=== PATIENT | male | born 1945 | race Caucasian/White ===

== ENCOUNTER 2023-09-15 12:55 | Inpatient (IN) | payer MEDICARE, SELFPAY ==
[2023-09-15] VITALS (9 sets, daily range): BP systolic 110–177; BP diastolic 68–138; BMI 13.6; BMI 16.5
[2023-09-15 09:00] LABS: % Basophils 0.3 % (0-2); % Eosinophils 0.1 % (0-6); % Immature Granulocytes 0.5 % (0-0.5); % Lymphocytes 5.7 % (20.5-51.1); % Monocytes 5.4 % (1.7-9.3); Absolute Basophils 0.1 10^3/uL (0-0.2); Absolute Immature Granulocytes 0.1 10^3/uL (0-0.05); Absolute Lymphocytes 1.1 10^3/uL (1.2-3.4); Absolute Neutrophils 16.5 10^3/uL (1.4-6.5); Hematocrit 38.7 % (39.0-52.0); Hemoglobin 12.9 g/dL (13.0-18.0); Mean Corp Hgb Conc. 33.3 g/dL (33.0-37.0); Mean Corpuscular Hgb 29.4 pg (27.0-31.0); Mean Corpuscular Volume 88.2 fL (80.0-94.0); Mean Platelet Volume 11.9 fL (7.4-10.4); Nucleated Red Blood Cells % 0 % (-); Platelet Count 196 10^3/uL (130-400); Red Blood Cell Count 4.39 10^6/uL (4.70-6.10); Red Cell Dist. Width 14.3 % (11.5-14.5); White Blood Cell Count 18.8 10^3/uL (4.8-10.8)
[2023-09-15 09:09] LABS: ALT (SGPT) 16 U/L (0-50); AST (SGOT) 24 U/L (17-59); Albumin 3.8 g/dl (3.5-5.0); Alkaline Phosphatase 151 U/L (38-126); Blood Urea Nitrogen 19 mg/dl (9-20); Calcium 9.2 mg/dl (8.4-10.2); Carbon Dioxide 30 mmol/L (22-30); Chloride 102 mmol/L (98-107); Glucose 131 mg/dl (70-99); Potassium 3.7 mmol/L (3.5-5.1); Sodium 142 mmol/L (135-145); Total Bilirubin 2.6 mg/dl (0.2-1.3); eGFR > 60.00
--- NOTE | 2023-09-15 09:11 | ED.GENMED ---
History of Present Illness
<ALEX Magaña - Last Filed: 09/16/23 15:36>
General
Chief Complaint: Breathing Problem
Source: patient and family
Exam Limitations: none
Time Seen by Provider: 09/15/23 08:22
Nursing documentation reviewed up to this point in time: agreed with
Travel History
Have you had any contact with someone who has COVID-19?: No
Do you have any symptoms of coronavirus? Fever > 100 degrees, chills, cough, shortness of breath, sore throat, loss of taste or smell, muscle aches, or headache?: Yes
Symptoms:: trouble breathing
History of Present Illness
History of Present Illness:
Patient is a 77-year-old male with history of lung cancer with lung resection, laryngeal cancer COPD on 3 L nasal cannula presents for worsening shortness of breath. Patient has been short of breath for the past couple days. reports they
recently moved here 4 days ago from [place]. reports they did fly out. Patient has no prior history of DVT PE. She does report that he has been progressively losing weight over the past 1 year.
Past History
<ALEX Magaña - Last Filed: 09/16/23 15:36>
Past History
ED Past Medical History: Cancer, HTN and Valvular disease; Negative CAD
ED Past Surgical History: Cardiac and Other (Lung resection)
Social History
Tobacco: Smoker
Alcohol: None
Personal:
Review of Systems
<ALEX Magaña - Last Filed: 09/16/23 15:36>
Review of Systems
Allergies reviewed?: Yes
All Other Systems: ROS reviewed and negative except as documented in HPI and ROS
Constitutional: Reports weight loss
EENT: Reports no symptoms
Respiratory: Reports trouble breathing
Cardiac: Reports no symptoms
ABD/GI: Reports no symptoms
Musculoskeletal: Reports no symptoms
Skin: Reports no symptoms
Hematologic/Lymphatic: Reports no symptoms
Psychiatric: Reports no symptoms
Phy Exam
<ALEX Magaña - Last Filed: 09/16/23 15:36>
General Physical Exam
General Presentation: no apparent distress
General age: appears stated age
General Skin: warm and dry
General Habitus: elderly
General Mental: alert
General Hydration: dry mucous membranes
Cardiovascular Exam
Cardiovascular Exam: tachycardia
Scores
<ALEX Magaña - Last Filed: 09/16/23 15:36>
Heart Failure Risk
Heart Failure Risk Score: Not Applicable
Course
<ALEX Magaña - Last Filed: 09/16/23 15:36>
Orders/Labs/Results
Orders:
Orders
09/15/23 08:14
EKG [Electrocardiogram (*1)] Stat
Reason for Study: Shortness of Breath
09/15/23 08:15
EKG- Treatment ONCE
09/15/23 08:42
Electrocardiogram (*1) Stat
Reason for Study: Other
Other Reason for Exam: chest pain
CT Chest Pe Study Urgent
Comment:
Reason For Exam: sob
Cardiac Monitoring- Treatment ONCE
EKG- Treatment ONCE
IV Insert/Care/Rem.- Treatment PRN
09/15/23 08:50
Complete Blood Count/With Diff Urgent
Comprehensive Metabolic Panel Urgent
Glycohemoglobin (HgbA1c) Urgent
Magnesium Urgent
Comment: ADD ON
NT-proBNP Urgent
Comment: ADD ON
Troponin I Urgent
09/15/23 09:04
Albuterol Nebs [Ventolin Nebules] 2.5 mg INH R NOW STA
Dexamethasone Sod Phosphate [Decadron] 10 mg IV NOW STA
09/15/23 09:05
0.9% Sodium Chloride 500 ml [Nss] 500 ml IV BOLUS
09/15/23 09:29
Add On- LAB Urgent
Tests Added?: cardiac BNP
09/15/23 09:34
Lactic Acid Urgent
Blood Culture Q30M
СВЕТЛАНА Source: Blood/Venous
Specimen Description:
09/15/23 10:05
Add On- LAB Urgent
Tests Added?: magnesium
09/15/23 10:06
Magnesium Sulfate 1 grams 0.9% Sodium Chloride 100 ml [Nss] 100 ml IV NOW
09/15/23 10:16
CefTRIAXone [Rocephin] 1,000 mg IV NOW STA
09/15/23 10:18
Azithromycin 500 mg/250 ml [Zithromax Infusion] 500 mg in 250 ml IV NOW
09/15/23 10:19
Blood Culture Q30M
СВЕТЛАНА Source: Blood/Venous
Specimen Description:
09/15/23 10:37
COVID-19 Antigen Urgent
Source: Nasal Swab
Influenza A+B Rapid Molecular Urgent
СВЕТЛАНА Source: Nasal Swab
Specimen Description:
09/15/23 10:48
0.9% Sodium Chloride 500 ml [Nss] 500 ml IV BOLUS
09/15/23 10:49
0.9% Sodium Chloride 500 ml [Nss] 500 ml IV BOLUS
09/15/23 11:30
Magnesium Sulfate 1 grams 0.9% Sodium Chloride 100 ml [Nss] 100 ml IV NOW
09/15/23 12:28
Sputum Culture [Respiratory Culture/Gram Stain] Routine
СВЕТЛАНА Source: Sputum
Specimen Description:
Date Specimen was Collected: 09/15/23
Time Specimen was Collected: 12:29
09/15/23 12:37
Admit/Transfer Patient As Directed
Co-Sign Provider:
Level of Care: Inpatient admission
Assign to:: Telemetry
Physician / Group: david cedeño
Diagnosis: sepsis 2/2 LLL pna, chronic copd, hypomag, urinary urgency
Reason for Telemetry: Arrhythmia
Date to Stop Telemetry: 09/18/23
Time to Stop Telemetry: 11:00
Reason for Hospitalization: sepsis 2/2 LLL pna, chronic copd, hypomag, urinary urgency
Expected length of stay greater than two midnights?: Yes
ELOS- Estimated Length of Stay in days: 4
I certify the patient meets the requirements for IP care: Yes
Code Status As Directed
Resuscitation Status: Do not resuscitate
Reached after discussion with pt or family/Healthcare POA: Yes
Based on pt advanced directive or healthcare POA form: Yes
Decision communicated with: Per patient with daughter present at bedside
Respiratory Culture/Gram Stain Urgent
СВЕТЛАНА Source: Sputum
Specimen Description:
Date Specimen was Collected: 09/16/23
Time Specimen was Collected: 00:00
DNR Bracelet Application ONCE
Speech Therapy Eval & Treat Routine
09/15/23 15:27
Lactic Acid Urgent
Troponin I Q6H
09/15/23 16:31
Acetaminophen [Tylenol] 650 mg PO Q4HWA
Ipratropium/Albuterol Sulfate [Duoneb] 3 ml INH R Q4HPRN PRN
09/15/23 16:31
Activity As Directed
Activity Level: As Tolerated
Vital Signs As Directed
Frequency: Per unit guidelines
Incentive Spirometry [Rx Incentive Spirometry] [RESP] Routine
Frequency: q1h while awake
O2 Therapy [RESP] Routine
Nasal Cannula Liter Flow: 3 LPM
Titrate/Wean O2 to maintain O2 sat greater than (%): 91
Special Instructions: Patient on chronic 2 to 3 L nasal cannula
Pulse Ox/spot Check [RESP] Routine
Quantity: 1
Ot Eval And Treat Routine
Pt Eval And Treat Routine
Activity Level: As Tolerated
DX Deep Vein Thrombosis Video Routine
09/15/23 16:43
Troponin I Q6H
09/15/23 18:00
Enoxaparin Sodium [Lovenox] 40 mg SC QPM
MetroNIDAZOLE 500 MG/100 ML [Flagyl 500 mg] 100 ml IV Q8H
09/15/23 20:00
Carvedilol [Coreg] 12.5 mg PO BID
Doxycycline [Vibramycin] 100 mg PO Q12
09/15/23 22:31
Troponin I Q6H
09/16/23 03:28
Complete Blood Count/With Diff IN AM
Comprehensive Metabolic Panel IN AM
09/16/23 08:00
Amlodipine [Norvasc] 2.5 mg PO DAILY
Aspirin Chewable [Low Strength Aspirin] 325 mg PO DAILY
Atorvastatin [Lipitor] 10 mg PO DAILY
09/16/23 12:00
CefTRIAXone [Rocephin] 1,000 mg IV Q24H
09/17/23 06:00
Complete Blood Count/With Diff IN AM
Comprehensive Metabolic Panel IN AM
09/18/23 06:00
Complete Blood Count/With Diff IN AM
Comprehensive Metabolic Panel IN AM
09/18/23 11:00
DC Protocol for Telemetry ONCE
09/19/23 06:00
Complete Blood Count/With Diff IN AM
Comprehensive Metabolic Panel IN AM
Abnormal Lab Results
09/15/23 09/15/23
08:50 09:34
WBC 18.8 H 10^3/uL
(4.8-10.8)
RBC 4.39 L 10^6/uL
(4.70-6.10)
Hgb 12.9 L g/dL
(13.0-18.0)
Hct 38.7 L %
(39.0-52.0)
MPV 11.9 H fL
(7.4-10.4)
Abs Immat Gran (auto) 0.1 H 10^3/uL
(0-0.05)
Absolute Neuts (auto) 16.5 H 10^3/uL
(1.4-6.5)
Absolute Lymphs (auto) 1.1 L 10^3/uL
(1.2-3.4)
Absolute Monos (auto) 1.0 H 10^3/uL
(0.1-0.6)
Neutrophils % 88.0 H %
(42.2-75.2)
Lymphocytes % 5.7 L %
(20.5-51.1)
Glucose 131 H mg/dl
(70-99)
Lactic Acid 3.4 H mmol/L
(0.7-2.0)
Magnesium 1.5 L mg/dl
(1.6-2.3)
Total Bilirubin 2.6 H mg/dl
(0.2-1.3)
Alkaline Phosphatase 151 H U/L
(38-126)
Troponin I 0.050 H* ng/ml
09/15/23 08:50
09/15/23 08:50
Vital Signs
Initial and Last Documented VS:
Initial Vital Signs
Temp Pulse Resp BP Pulse Ox
99.8 F 149 26 177/138 85
09/15/23 08:10 09/15/23 08:10 09/15/23 08:10 09/15/23 08:10 09/15/23 08:10
Last Documented Vital Signs
Temp Pulse Resp BP Pulse Ox
98.0 F 80 14 129/64 97
09/16/23 11:10 09/16/23 13:50 09/16/23 13:50 09/16/23 11:10 09/16/23 13:50
<Sudhakar Aragon, DO - Last Filed: 09/15/23 10:14>
Orders/Labs/Results
Orders:
Orders
09/15/23 08:14
EKG [Electrocardiogram (*1)] Stat
Reason for Study: Shortness of Breath
09/15/23 08:15
EKG- Treatment ONCE
09/15/23 08:42
Electrocardiogram (*1) Stat
Reason for Study: Other
Other Reason for Exam: chest pain
CT Chest Pe Study Urgent
Comment:
Reason For Exam: sob
Cardiac Monitoring- Treatment ONCE
EKG- Treatment ONCE
IV Insert/Care/Rem.- Treatment PRN
09/15/23 08:50
Complete Blood Count/With Diff Urgent
Comprehensive Metabolic Panel Urgent
Glycohemoglobin (HgbA1c) Urgent
Magnesium Urgent
Comment: ADD ON
NT-proBNP Urgent
Comment: ADD ON
Troponin I Urgent
09/15/23 09:04
Albuterol Nebs [Ventolin Nebules] 2.5 mg INH R NOW STA
Dexamethasone Sod Phosphate [Decadron] 10 mg IV NOW STA
09/15/23 09:05
0.9% Sodium Chloride 500 ml [Nss] 500 ml IV BOLUS
09/15/23 09:29
Add On- LAB Urgent
Tests Added?: cardiac BNP
09/15/23 09:34
Lactic Acid Urgent
Blood Culture Q30M
СВЕТЛАНА Source: Blood/Venous
Specimen Description:
09/15/23 10:05
Add On- LAB Urgent
Tests Added?: magnesium
09/15/23 10:06
Magnesium Sulfate 1 grams 0.9% Sodium Chloride 100 ml [Nss] 100 ml IV NOW
09/15/23 10:16
CefTRIAXone [Rocephin] 1,000 mg IV NOW STA
09/15/23 10:18
Azithromycin 500 mg/250 ml [Zithromax Infusion] 500 mg in 250 ml IV NOW
09/15/23 10:19
Blood Culture Q30M
СВЕТЛАНА Source: Blood/Venous
Specimen Description:
09/15/23 10:37
COVID-19 Antigen Urgent
Source: Nasal Swab
Influenza A+B Rapid Molecular Urgent
СВЕТЛАНА Source: Nasal Swab
Specimen Description:
09/15/23 10:48
0.9% Sodium Chloride 500 ml [Nss] 500 ml IV BOLUS
09/15/23 10:49
0.9% Sodium Chloride 500 ml [Nss] 500 ml IV BOLUS
09/15/23 11:30
Magnesium Sulfate 1 grams 0.9% Sodium Chloride 100 ml [Nss] 100 ml IV NOW
09/15/23 12:28
Sputum Culture [Respiratory Culture/Gram Stain] Routine
СВЕТЛАНА Source: Sputum
Specimen Description:
Date Specimen was Collected: 09/15/23
Time Specimen was Collected: 12:29
09/15/23 12:37
Admit/Transfer Patient As Directed
Co-Sign Provider:
Level of Care: Inpatient admission
Assign to:: Telemetry
Physician / Group: david cedeño
Diagnosis: sepsis 2/2 LLL pna, chronic copd, hypomag, urinary urgency
Reason for Telemetry: Arrhythmia
Date to Stop Telemetry: 09/18/23
Time to Stop Telemetry: 11:00
Reason for Hospitalization: sepsis 2/2 LLL pna, chronic copd, hypomag, urinary urgency
Expected length of stay greater than two midnights?: Yes
ELOS- Estimated Length of Stay in days: 4
I certify the patient meets the requirements for IP care: Yes
Code Status As Directed
Resuscitation Status: Do not resuscitate
Reached after discussion with pt or family/Healthcare POA: Yes
Based on pt advanced directive or healthcare POA form: Yes
Decision communicated with: Per patient with daughter present at bedside
Respiratory Culture/Gram Stain Urgent
СВЕТЛАНА Source: Sputum
Specimen Description:
Date Specimen was Collected: 09/16/23
Time Specimen was Collected: 00:00
DNR Bracelet Application ONCE
Speech Therapy Eval & Treat Routine
09/15/23 15:27
Lactic Acid Urgent
Troponin I Q6H
09/15/23 16:31
Acetaminophen [Tylenol] 650 mg PO Q4HWA
Ipratropium/Albuterol Sulfate [Duoneb] 3 ml INH R Q4HPRN PRN
09/15/23 16:31
Activity As Directed
Activity Level: As Tolerated
Vital Signs As Directed
Frequency: Per unit guidelines
Incentive Spirometry [Rx Incentive Spirometry] [RESP] Routine
Frequency: q1h while awake
O2 Therapy [RESP] Routine
Nasal Cannula Liter Flow: 3 LPM
Titrate/Wean O2 to maintain O2 sat greater than (%): 91
Special Instructions: Patient on chronic 2 to 3 L nasal cannula
Pulse Ox/spot Check [RESP] Routine
Quantity: 1
Ot Eval And Treat Routine
Pt Eval And Treat Routine
Activity Level: As Tolerated
DX Deep Vein Thrombosis Video Routine
09/15/23 16:43
Troponin I Q6H
09/15/23 18:00
Enoxaparin Sodium [Lovenox] 40 mg SC QPM
MetroNIDAZOLE 500 MG/100 ML [Flagyl 500 mg] 100 ml IV Q8H
09/15/23 20:00
Carvedilol [Coreg] 12.5 mg PO BID
Doxycycline [Vibramycin] 100 mg PO Q12
09/15/23 22:31
Troponin I Q6H
09/16/23 03:28
Complete Blood Count/With Diff IN AM
Comprehensive Metabolic Panel IN AM
09/16/23 08:00
Amlodipine [Norvasc] 2.5 mg PO DAILY
Aspirin Chewable [Low Strength Aspirin] 325 mg PO DAILY
Atorvastatin [Lipitor] 10 mg PO DAILY
09/16/23 12:00
CefTRIAXone [Rocephin] 1,000 mg IV Q24H
09/17/23 06:00
Complete Blood Count/With Diff IN AM
Comprehensive Metabolic Panel IN AM
09/18/23 06:00
Complete Blood Count/With Diff IN AM
Comprehensive Metabolic Panel IN AM
09/18/23 11:00
DC Protocol for Telemetry ONCE
09/19/23 06:00
Complete Blood Count/With Diff IN AM
Comprehensive Metabolic Panel IN AM
Abnormal Lab Results
09/15/23 09/15/23
08:50 09:34
WBC 18.8 H 10^3/uL
(4.8-10.8)
RBC 4.39 L 10^6/uL
(4.70-6.10)
Hgb 12.9 L g/dL
(13.0-18.0)
Hct 38.7 L %
(39.0-52.0)
MPV 11.9 H fL
(7.4-10.4)
Abs Immat Gran (auto) 0.1 H 10^3/uL
(0-0.05)
Absolute Neuts (auto) 16.5 H 10^3/uL
(1.4-6.5)
Absolute Lymphs (auto) 1.1 L 10^3/uL
(1.2-3.4)
Absolute Monos (auto) 1.0 H 10^3/uL
(0.1-0.6)
Neutrophils % 88.0 H %
(42.2-75.2)
Lymphocytes % 5.7 L %
(20.5-51.1)
Glucose 131 H mg/dl
(70-99)
Lactic Acid 3.4 H mmol/L
(0.7-2.0)
Magnesium 1.5 L mg/dl
(1.6-2.3)
Total Bilirubin 2.6 H mg/dl
(0.2-1.3)
Alkaline Phosphatase 151 H U/L
(38-126)
Troponin I 0.050 H* ng/ml
09/15/23 08:50
09/15/23 08:50
Vital Signs
Initial and Last Documented VS:
Initial Vital Signs
Temp Pulse Resp BP Pulse Ox
99.8 F 149 26 177/138 85
09/15/23 08:10 09/15/23 08:10 09/15/23 08:10 09/15/23 08:10 09/15/23 08:10
Last Documented Vital Signs
Temp Pulse Resp BP Pulse Ox
98.0 F 80 14 129/64 97
09/16/23 11:10 09/16/23 13:50 09/16/23 13:50 09/16/23 11:10 09/16/23 13:50
<ALEX Magaña - Last Filed: 09/16/23 15:36>
MDM/Problems Addressed
Differential Diagnosis Includes:
not limited to: Influenza COVID pneumonia PE arrhythmia
MDM/Problems Addressed:
Patient is a 77-year-old male with past medical history of lung cancer COPD laryngeal cancer recently moved from [place] 4 ago presents with shortness of breath. Pt recently moved from [place]. Patient very tachycardic on arrival . Pt hypoxic on
initial arrival despite his chronic O2 . Patient evaluated by ED physician. patient with decreased breath sounds. Given treatment here in the ER feeling better. CAT scan negative for PE but does show extensive left lower pneumonia, neg covid . IV
antibx ordered
Chronic conditions affecting care:
COPD emphysema, chronic O2,
<ALEX Magaña - Last Filed: 01/21/24 15:36>
*Radiology
Radiology exam reviewed: radiology read reviewed (CT shows extensive left lower lobe pneumonia no PE, severe erythematous changes)
*Pulse Oximetry
Patient hypoxic: yes
*Computer Support Analyst Interpretation
Rate: tachycardiac
Interpretation: abnormal
Heart Rate: 122
Rhythm: sinus tachycardia
*Critical Care Note
Total Time (30-74mins, 75-104mins- exclusive of procedures): Not Applicable
ED Attending Note
<ALEX Magaña - Last Filed: 09/16/23 15:36>
-
Portions of this chart may have been created with voice recognition software.� Occasional wrong word or��sound alike� substitutions may have occurred due to the inherent limitations of voice recognition software.
<Sudhakar Aragon DO - Last Filed: 09/15/23 10:14>
ED Attending Note
Patient seen and examined by attending physician: Yes
I performed the substantive portion of visit, reviewed & personally made and approve the management plan that is documented in note by myself or BETO.: Yes
ED Attending Note:
I have seen and evaluated the patient with a [id number] encounter. I have spoken to the advance practicer provider and involved in the medical history, the physical exam, medical decision making.
Evaluation and management service: agree unless noted differently below.
Results interpretation: agree unless noted differently below.
Focused HPI: 77-year-old male presenting with shortness of breath and palpitations. Patient found be tachycardic. Initial concern for SVT.
Physical exam: Weak, frail, cachectic, decreased breath sounds in the left. Tachycardic
Medical Decision Making: Initial concern for SVT. After breathing treatment, patient feeling somewhat more comfortable. Patient still tachycardic but it is more consistent with sinus tachycardia. Patient found to have prolonged QTc. He is
malnourished. Will give dose of IV magnesium and check magnesium levels. CT PE performed showing no evidence of PE but there is extensive pneumonia. Will start IV antibiotics and admit
Discharge Plan
Departure
Patient Disposition: Admit
Date of Disposition: 09/15/23
Time of Disposition: 10:51
Admit to: Med/Surg
Admit to doctor: hospitalist
Presentation/result/management discussed w/ accepting MD/DO: Hospitalist
Patient with high blood pressure during this ER visit?: Yes
Condition: Fair
Covid-19: Not Applicable
Discharge Problem:
Pneumonia, Acute dyspnea, Sepsis
Interventions
Interventions:
*Risk Screen - Suicide Last Done: 09/15/23 12:01
*General Assessment Last Done: 09/15/23 08:10
*Neglect/Abuse Screening Last Done: 09/15/23 12:01
ED- Fall Risk Assessment Last Done: 09/15/23 12:01
*ED COVID-19 Vaccine History Last Done: 09/15/23 08:10
*Nursing Disposition Last Done: 09/15/23 16:31
ED- Cardiac Assessment Last Done: 09/15/23 11:08
ED- Pulmonary Assessment Last Done: 09/15/23 11:08
Discharge Date and Time
Discharge Date/Time: 09/15/23 16:32
[2023-09-15 09:57] LABS: Lactic Acid 3.4 mmol/L (0.7-2.0)
[2023-09-15] MEDS: VENTOLIN NEBULES 2.5 MG INH (10:09)
[2023-09-15] MEDS: NSS 500 IV ×2 (10:09→11:31)
[2023-09-15] MEDS: DECADRON 10 MG IV (10:10)
[2023-09-15 10:29] LABS: Magnesium 1.5 mg/dl (1.6-2.3)
[2023-09-15 10:40] LABS: NT-proBNP 3980 pg/ml
[2023-09-15 11:14] LABS: COVID-19 Antigen Negative (Negative)
[2023-09-15] MEDS: ZITHROMAX INFUSION 250 IV (11:30)
[2023-09-15] MEDS: ROCEPHIN 1000 MG IV (11:30)
[2023-09-15] MEDS: MAGNESIUM SULFATE 102 GRAMS IV (11:50)
--- NOTE | 2023-09-15 12:17 | HPS.HSE ---
Family Physician
<ALEX Roe - Last Filed: 09/15/23 12:53>
-
Family Physician: NOT KNOW UNKNOWN - PT DOES
Chief Complaint
<ALEX Roe - Last Filed: 09/15/23 12:53>
-
sob cough
History of Present Illness
77-year-old male from [facility] who moved here 5 days ago after flying on a plane. He reports over the past 4 days he has had shortness of breath with yellow productive cough and urinary urgency. He has history of COPD is on 2 to 3 L nasal
cannula he also had prior lung cancer with resection left upper lobectomy in 2010. He was noted to be tachycardic with left lower lobe pneumonia on CT of his chest. He denies headache, sore throat, chest pain, palpitations, abdominal pain, nausea
vomiting, diarrhea, sick contacts. Patient is past medical history of left upper lobe lung cancer 2010 with lobectomy, prostate cancer with radiation and seed therapy, COPD on chronic 2 to 3 L, former smoker 60 years, HTN, HLD, aortic valve
replacement 2006
Medical History
<ALEX Roe - Last Filed: 09/15/23 12:53>
Past Medical History
Past Medical History: Reports Other (left upper lobe lung cancer 2010 with lobectomy, prostate cancer with radiation and seed therapy, COPD on chronic 2 to 3 L, former smoker 60 years, HTN, HLD, aortic valve replacement 2006)
Past Surgical History: Reports Other ( aortic valve replacement 2006, prostate seed therapy, multiple skin cancers removed)
Social History
Tobacco: Former Smoker (60-year 1 pack a day)
Alcohol: None
Drug: None
Personal:
Living: With Family ()
Employment: Retired
Family History
Family History: Early CAD (Mother IA age 68, father unknown)
Allergies / Home Medications
Allergies reflects when Allergies were last updated in [employer].
Home Medications with original date entered in [employer]
Allergy/Medication List:
Allergies
Allergy/AdvReac Type Severity Reaction Status Date / Time
No Known Allergies Allergy Verified 09/15/23 08:14
Home Medications
amlodipine 2.5 mg tablet 2.5 mg PO DAILY 02/21/11
aspirin 81 mg chewable tablet 325 mg PO DAILY 02/21/11
simvastatin 20 mg tablet 20 mg PO DAILY 02/21/11
carvedilol 12.5 mg tablet 12.5 mg PO BID 11/07/13
amoxicillin 875 mg-potassium clavulanate 125 mg tablet 1 tab PO Q12 #10 tabs 11/08/13
amoxicillin 875 mg-potassium clavulanate 125 mg tablet 1 tab PO Q12 #14 tabs 01/20/14
Review of Systems
<ALEX Roe - Last Filed: 09/15/23 12:53>
-
History Source: Patient and Family (Daughter at bedside)
A 12 point ROS was completed and negative except as noted: Yes
Constitutional: Denies Fever or Chills
EENT: Denies Tearing or Runny Nose
Respiratory: Reports Cough (Productive yellow) and Trouble Breathing
Cardiac: Denies Chest Pain, Diaphoresis or Palpitations
Abdomen/GI: Denies Abdominal Pain, Nausea, Vomiting, Diarrhea, Constipated, Bloody Stools or Black Stools
: Reports Incontinence and Urgency; Denies Dysuria, Frequency, Flank Pain or Difficulty Voiding
Musculoskeletal: Denies Joint Pain or Edema
Skin: Denies Itching or Rash
Neurological: Denies Dizzy, Headache or Weakness
Endocrine: Reports No Symptoms
Hematologic/Lymphatic: Reports No Symptoms
Psych: Reports Calm
Physical Exam
<ALEX Roe - Last Filed: 09/15/23 12:53>
Vital Signs
Vital Signs
Temp Pulse Resp BP Pulse Ox
99.8 F 121 30 126/70 97
09/15/23 08:10 09/15/23 12:01 09/15/23 12:01 09/15/23 12:01 09/15/23 12:01
Physical Exam
General: Comfortable and Conversant; No Pain, Fever or Chills
HEENT: NormoCephalic, Anicteric, PERRLA, [place] Conjunctivae, No Ptosis and Oxygen (3 L nasal cannula)
Respiratory: Rhonchi (Left lower lobe, right CTA)
Cardiac: S1/S2 and Tachycardia (Sinus with PACs); No Murmur, Rub, Gallop or Peripheral Edema
Breast: Deferred by me
GI: Soft, Non Tender, Non Distended, Normal Bowel Sounds and No Hepatosplenomegaly
Rectal: Deferred by Provider
Genito-urinary: Deferred by me
Musculoskeletal: Clubbing, No Cyanosis and No Edema
Skin: Warm and Dry; No Rash
Neuro: AO x 3, No Motor Deficits, Nonfocal/grossly intact and Cranial Nerves Intact; No Slurred Speech, Facial Droop or Tremors
Psych: Calm
Laboratory Results
Suhaillt;ALEX Roe - Last Filed: 09/15/23 12:53>
-
09/15/23 08:50
09/15/23 08:50
Laboratory Results
Lactic Acid 3.4 mmol/L (0.7-2.0) H 09/15/23 09:34
Total Bilirubin 2.6 mg/dl (0.2-1.3) H 09/15/23 08:50
AST 24 U/L (17-59) 09/15/23 08:50
ALT 16 U/L (0-50) 09/15/23 08:50
Alkaline Phosphatase 151 U/L (38-126) H 09/15/23 08:50
Troponin I 0.050 ng/ml H* 09/15/23 08:50
Data Reviewed
<ALEX Roe - Last Filed: 09/15/23 12:53>
-
Diagnostic Radiology: Report Reviewed by me
Lab Data: Labs Reviewed by me
Impression/Plan
<ALEX Roe - Last Filed: 09/15/23 12:53>
-
Impression/Plan:
Admit to telemetry
#Sepsis 2/2 left lower lobe PNA
18.8 with left shift, 99.8, HR 121, 126/70, 97% 3 LNC
COVID/Flu-negative
-Blood cultures x 2, sputum culture, lactic acid 3.4 will follow
-Follow CBC, CMP
-IV vancomycin IV Zosyn given in Er will change to Doxycycline, Flagyl and Rocephin
-IV Decadron given in ER will hold further dose
-prn duoneb
-incentive spirometry
-PT/OT/case management consult
CT PE study extensive left lower lobe PNA no PE, severe emphysematous changes
#Urinary frequency concern for UTI
History of prostate cancer status post radiation, see therapy years ago per patient
-Follow urinalysis, urine culture
#Lung cancer s/p lung resection left upper lobectomy 2010
#Polyp to vocal cord
#WT loss likely 2/2 to severe copd
ct pe study neg
recommend outpt follow up study
#COPD on 2-3 LNC chronic
#Former smoker 60 years 1 pack a day
-Continue O2 support
#Hypomagnesemia
Mag 1.5, magnesium replacement given
#Non -IA troponin elevation in setting of sepsis
Troponin 0.050 will follow
EKG sinus tach with PACs, HR 122, QTc 601 MS
#Prolonged QTc
QTc 601 MS
-Hold prolonging QTc agents monitor QTc level
#HTN�benign
-126/70
-Continue amlodipine, carvedilol
#HLD
-Continue simvastatin 20 mg daily
#Aortic valve replacement 2006
-Continue aspirin 325 mg daily
DVT prophylaxis
Subcu Lovenox
DNR per patient with daughter present at bedside
<Monik Hernandez MD - Last Filed: 09/15/23 16:28>
-
Seen earlier. Patient's daughter was at bedside
I saw and examined the patient.
The VULCANIZING MACHINE OPERATOR or PA's note was reviewed and I agree with the note.
Comment:
Cachectic
CVS: S1-S2 normal
Chest: Decreased breath sounds bilaterally
Abdomen: Soft, NT / Bowel sounds present
Extremities: No edema, normal pulses
SPECIAL EDUCATION PROFESSIONAL: Non focal exam
# Left lower lobe pneumonia with leukocytosis
Admit
Blood cultures and sputum cultures
Doxycycline Flagyl and ceftriaxone
Speech evaluation rule out aspiration-especially since patient has had radiation to the throat.
Incentive spirometry
CT PE study with extensive left lower lobe pneumonia no PE.
Follow leukocytosis
# Lactic acidosis-continue IV fluids and follow
# Severe emphysema on albuterol and fluticasone and Spiriva inhalers as outpatient
Chronic respiratory failure on 2 to 3 L of oxygen at home
# Mildly elevated troponin-likely secondary to respiratory distress-follow
routine echo
# Urinary frequency
Check urine analysis and culture
# History of prostate cancer with radiation in the past
# History of SCC lung with left upper lobectomy in 2000
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
He cannot recall the details, but states he had laryngeal cancer and received 28 courses of radiation therapy per Dr. Sidhu in September of 2012.
# 45 pound weight loss-patient needs further workup as outpatient for this
# Hypertension-on Coreg
# Hypomagnesemia-replace
# Prolonged QTc-replace magnesium and follow on telemetry
# Hyperlipidemia-on simvastatin
# At least patient has moderate protein calorie malnutrition
Nutrition consultation
# History of noncritical coronary disease.
# History of aortic valve replacement in 2006-bioprosthetic aortic valve
# History of lumbar disc surgery
# Nephrolithiasis
# DVT prophylaxis-Lovenox
# DNR status per discussion with patient and daughter at bedside
time over 75 min
Impression/Plan:
Admit to telemetry
#Sepsis 2/2 left lower lobe PNA
18.8 with left shift, 99.8, HR 121, 126/70, 97% 3 LNC
COVID/Flu-negative
-Blood cultures x 2, sputum culture, lactic acid 3.4 will follow
-Follow CBC, CMP
-IV vancomycin IV Zosyn given in Er will change to Doxycycline, Flagyl and Rocephin
-IV Decadron given in ER will hold further dose
-prn duoneb
-incentive spirometry
-PT/OT/case management consult
CT PE study extensive left lower lobe PNA no PE, severe emphysematous changes
#Urinary frequency concern for UTI
History of prostate cancer status post radiation, see therapy years ago per patient
-Follow urinalysis, urine culture
#Lung cancer s/p lung resection left upper lobectomy 2010
#Polyp to vocal cord
#WT loss likely 2/2 to severe copd
ct pe study neg
recommend outpt follow up study
#COPD on 2-3 LNC chronic
#Former smoker 60 years 1 pack a day
-Continue O2 support
#Hypomagnesemia
Mag 1.5, magnesium replacement given
#Non -IA troponin elevation in setting of sepsis
Troponin 0.050 will follow
EKG sinus tach with PACs, HR 122, QTc 601 MS
#Prolonged QTc
QTc 601 MS
-Hold prolonging QTc agents monitor QTc level
#HTN�benign
-126/70
-Continue amlodipine, carvedilol
#HLD
-Continue simvastatin 20 mg daily
#Aortic valve replacement 2006
-Continue aspirin 325 mg daily
DVT prophylaxis
Subcu Lovenox
DNR per patient with daughter present at bedside
--- NOTE | 2023-09-15 14:55 | PHANOTE ---
09/15/2023, [place], spoke to pt. and pt.'s family to obtain pt.'s medication history; pt. states to be taking Spiriva Respimat 1.25 mcg inhaler 1 puff Daily; however, after calling pt.'s pharmacy in [place] ([facility] on [address] in
[place], [place]), they state that the medication has been filled but not picked up. Did not confirm as this medication is not in pt.'s pharmacy fill data or [facility] records.
[2023-09-15 15:51] LABS: Lactic Acid 3.7 mmol/L (0.7-2.0)
--- NOTE | 2023-09-15 16:05 | CM ---
Met patient and dgtr in Er room. Patient and moved back to [place] from [place] 4 days ago as his health is declining and wanted to be near family. HE and live in one level home, no steps to enter.
He has home oxygen. The house has a folding shower seat.
He has not had VNA or SNF in past.
Prescriptions filled at [facility].
He has not established a local PCP yet.
PLAN: home with family support.
--- NOTE | 2023-09-15 16:55 | PTOTSP ---
SPEECH THERAPY SWALLOW EVALUATION:
Clinical signs of oropharyngeal dysphagia, likely chronic in patient with multiple predisposing (prior laryngeal cancer with radiation, COPD, lung cancer, 'choking' episodes, recurrent pneumonia) and precipitating (current pneumonia, sepsis, UTI)
dysphagia risk factors. Patient currently with pneumonia. Recommend Videofluoroscopic Swallowing Study to further assess swallow physiology. Recommend CAUTIOUS oral diet of IDDSI Level 4 Puree and thin liquids via SINGLE sips only until results of
VSE. Strict aspiration precautions in place including: upright positioning, small single sips only, small bites of food, only provide p.o. if SpO2>90% and RR<30, medications crushed or whole (if small) in puree; Should patient exhibit any increased
signs of aspiration, or a decline in respiratory status, make NPO until VSE (LOW threshold to make NPO). Speech therapy to follow, assess diet tolerance and modify as appropriate, monitor CXR and WBC, provide continued education regarding aspiration
risks and precautions, and provide further recommendations following VSE procedure results.
RECOMMEND:
1) Videofluoroscopic Swallowing Study to be completed Sunday09/17/23
2) CAUTIOUS oral diet of IDDSI Level 4 Puree and thin liquids via SINGLE sips only until results of VSE
3) Strict aspiration precautions in place including: upright positioning, small single sips only, small bites of food, only provide p.o. if SpO2>90% and RR<30, medications crushed or whole (if small) in puree
4) Should patient exhibit any increased signs of aspiration, or a decline in respiratory status, make NPO until VSE (LOW threshold to make NPO)
5) Speech therapy to follow, assess diet tolerance and modify as appropriate, monitor CXR and WBC, provide continued education regarding aspiration risks and precautions, and provide further recommendations following VSE procedure results
[2023-09-15 17:39] LABS: Troponin I 0.071 ng/ml
[2023-09-15] MEDS: FLAGYL 500 MG 100 IV (18:00)
[2023-09-15] MEDS: NSS 1000 IV (18:02)
[2023-09-15] MEDS: LOVENOX 30 MG SC (18:02)
[2023-09-15] MEDS: TYLENOL 650 MG PO ×2 (18:02→20:34)
[2023-09-15] MEDS: ADVAIR HFA 115/21 MCG INHALER INH (18:17)
[2023-09-15] MEDS: ADVAIR HFA 115/21 MCG INHALER 1 PUFF INH (20:22)
[2023-09-15] MEDS: VIBRAMYCIN 100 MG PO (20:34)
[2023-09-15] MEDS: COREG 12.5 MG PO (20:34)
[2023-09-15 22:43] LABS: Lactic Acid 1.8 mmol/L (0.7-2.0)
[2023-09-15 22:56] LABS: Troponin I 0.066 ng/ml
[2023-09-15] MEDS: TYLENOL PO (23:56)
[2023-09-16] VITALS (8 sets, daily range): BP systolic 101–144; BP diastolic 64–78; PULSE 89–90; O2SAT 95; BMI 16.6
[2023-09-16] MEDS: FLAGYL 500 MG 100 IV (01:29)
[2023-09-16 03:35] LABS: % Immature Granulocytes 0.7 % (0-0.5); % Lymphocytes 1.8 % (20.5-51.1); % Monocytes 5.3 % (1.7-9.3); % Neutrophils 92.2 % (42.2-75.2); Absolute Immature Granulocytes 0.1 10^3/uL (0-0.05); Absolute Lymphocytes 0.2 10^3/uL (1.2-3.4); Absolute Monocytes 0.6 10^3/uL (0.1-0.6); Absolute Neutrophils 9.8 10^3/uL (1.4-6.5); Hematocrit 27.2 % (39.0-52.0); Mean Corp Hgb Conc. 33.5 g/dL (33.0-37.0); Mean Corpuscular Volume 89.8 fL (80.0-94.0); Mean Platelet Volume 11.1 fL (7.4-10.4); Nucleated Red Blood Cells % 0 % (-); Platelet Count 128 10^3/uL (130-400); Red Blood Cell Count 3.03 10^6/uL (4.70-6.10); Red Cell Dist. Width 14.2 % (11.5-14.5); White Blood Cell Count 10.6 10^3/uL (4.8-10.8)
[2023-09-16 03:48] LABS: Hemoglobin 9.1 g/dL (13.0-18.0)
[2023-09-16 04:06] LABS: ALT (SGPT) 11 U/L (0-50); AST (SGOT) 16 U/L (17-59); Albumin 2.5 g/dl (3.5-5.0); Alkaline Phosphatase 104 U/L (38-126); Blood Urea Nitrogen 23 mg/dl (9-20); Calcium 8.1 mg/dl (8.4-10.2); Carbon Dioxide 31 mmol/L (22-30); Chloride 108 mmol/L (98-107); Estimated Creatinine Clearance 71 ml/min; Glucose 144 mg/dl (70-99); Potassium 3.1 mmol/L (3.5-5.1); Sodium 140 mmol/L (135-145); Total Bilirubin 1.2 mg/dl (0.2-1.3); Troponin I 0.056 ng/ml; eGFR > 60.00
[2023-09-16] MEDS: NSS 1000 IV (04:19)
[2023-09-16] MEDS: TYLENOL 650 MG PO ×5 (04:19→21:05)
[2023-09-16] MEDS: ADVAIR HFA 115/21 MCG INHALER 1 PUFF INH ×2 (07:30→19:41)
[2023-09-16] MEDS: SPIRIVA RESPIMAT 2.5 MCG 2 PUFF INH (07:30)
[2023-09-16 09:14] LABS: Glycohemoglobin (HgbA1c) 5.4 % (4.0-5.6)
[2023-09-16] MEDS: VIBRAMYCIN 100 MG PO ×2 (09:45→21:05)
[2023-09-16] MEDS: ASPIRIN 325 MG PO (09:45)
[2023-09-16] MEDS: FLAGYL 500 MG PO ×3 (09:45→21:06)
[2023-09-16] MEDS: LIPITOR 10 MG PO (09:46)
[2023-09-16] MEDS: COREG PO (09:46)
[2023-09-16] MEDS: KCL 270 MEQ IV (10:29)
--- NOTE | 2023-09-16 10:38 | W.PN.HOSP.TC ---
Today's Communication/Plan
-
I V AB
Aspiration precautions
Repeat EKG in the morning to check QTc
Letter supplement
Change aspirin to 81 mg daily
Iron studies
Assessment / Plan
Assessment / Plan
CVS: S1-S2 normal
Chest: Decreased breath sounds bilaterally, rales
Abdomen: Soft, NT / Bowel sounds present
Extremities: No edema, normal pulses
MANUFACTURING ADVISOR: Non focal exam
# Left lower lobe pneumonia with leukocytosis
CAP vs Aspiration related.
Blood cultures and sputum cultures
Doxycycline ,Flagyl and ceftriaxone
Speech evaluation -Modified diet
Incentive spirometry
CT PE study with extensive left lower lobe pneumonia no PE.�
Follow leukocytosis
# Lactic acidosis-Resolved
# Hypokalemia-replace non-NH troponin elevation
#
#Drop in AB /anemia due to IVF
# Severe emphysema on albuterol and fluticasone and Spiriva inhalers as outpatient
�Chronic respiratory failure on 2 to 3 L of oxygen at home
# Mildly elevated troponin-likely secondary to respiratory distress-follow
routine echo
# Urinary frequency
Check urine analysis and culture
#Mild Thrombocytopenia-Watch
# History of prostate cancer with radiation in the past
# History of SCC lung� with left upper lobectomy in 2000
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
He cannot recall the details, but states he had laryngeal cancer and received 28 courses of radiation therapy per Dr. Sidhu in September of 2012.
# 45 pound weight loss-patient needs further workup as outpatient for this
# Hypertension-on Coreg
# Hypomagnesemia-replace
# Prolonged QTc-replace magnesium and follow on telemetry
# Hyperlipidemia-on simvastatin
# At least patient has moderate protein calorie malnutrition
Nutrition consultation
Ensure
# History of noncritical coronary disease.
# History of aortic valve replacement in 2006-bioprosthetic aortic valve
# History of lumbar disc surgery
# Nephrolithiasis
# Hypoalbuminemia
# DVT prophylaxis-Lovenox
# DNR status per discussion with patient and daughter at bedside
D/W RN
Anticipated Discharge: 24 - 48 hours
Subjective/Interval History
-
Date of Service: September 16, 2023
Objective Data
-
Labs:
Laboratory Results
09/16/23
03:28
WBC 10.6
Hgb 9.1 L D
Hct 27.2 L
Plt Count 128 L D
Sodium 140
Potassium 3.1 L
Chloride 108 H
Carbon Dioxide 31 H
BUN 23 H
Creatinine 0.6 L
Glucose 144 H
Calcium 8.1 L
Total Bilirubin 1.2 D
AST 16 L
ALT 11
Alkaline Phosphatase 104
Vital Signs:
Vital Signs
Temp Pulse Resp BP Pulse Ox
97.9 F 79 16 101/65 97
09/16/23 07:20 09/16/23 09:47 09/16/23 07:33 09/16/23 09:47 09/16/23 07:33
I&O
09/15/23 09/16/23 09/17/23
06:59 06:59 06:59
Intake Total 1780 / 1780
Output Total 185 / 185
Balance 1595 / 1595
[2023-09-16 10:57] LABS: Iron 20 ug/dl (49-181); Magnesium 1.7 mg/dl (1.6-2.3)
[2023-09-16 11:04] LABS: Percent Saturation 11 % (20-50); Total Iron Binding Capacity 173 ug/dl (261-462)
--- NOTE | 2023-09-16 11:14 | W.PN.UPDATE ---
Update Note
Progress Note Update
Pt and family insistent that I change Aspirin back to 325
Changed.
Rationale behind using 81 mg was explained to them.
They still wanted to be changed till he speaks to his gamma operator.
Family aware about anemia and may be an on going problem in future.
Also aware about anemia and the need for OP work up.
[2023-09-16] MEDS: ROCEPHIN 1000 MG IV (11:56)
[2023-09-16] MEDS: PROTONIX 40 MG PO (11:56)
[2023-09-16] MEDS: STERILE WATER FOR INJECTION 10 ML IV (11:56)
[2023-09-16 12:04] LABS: Vitamin B12 354 pg/ml (239-931)
[2023-09-16 12:39] LABS: Urine Albumin Trace (Neg - Trace); Urine Bilirubin 1+ (Negative); Urine Character Clear (Clear); Urine Color Yellow; Urine Glucose Negative (Negative); Urine Ketone Negative (Negative); Urine Leukocyte Trace (Negative); Urine Nitrite Negative (Negative); Urine Occult Blood Negative (Negative); Urine Urobilinogen 3+ (Neg - 1+)
[2023-09-16 13:38] LABS: Urine Bacteria Few (Negative); Urine Red Blood Cell 0-2 /HPF (0-2); Urine White Cell 0-2 /HPF (0-5)
[2023-09-16] MEDS: VENTOLIN NEBULES 2.5 MG INH ×3 (13:45→19:41)
[2023-09-16] MEDS: LOVENOX 30 MG SC (17:29)
[2023-09-16] MEDS: COREG 12.5 MG PO (21:06)
--- NOTE | 2023-09-16 21:14 | PTCARENOTE ---
Pt agitated and loudly yelling at this nurse after was questioned about the follow up advance directive question ' Why are you asking me, why do you need it, so I can't come to this hospital?'. Pt was reassured and reminded that this was just a
follow up question and it had nothing to do with his treatment, and that it was the hospital's protocol to have a copy of it. Also, after HS meds were administered to him pt got very agitated again and started yelling again 'what's going on, you are
giving me meds that I never heard before, this is crazy'. Pt was gently reminded that I made him aware prior to giving him his medications what he was about to get and he was on agreement. Pt continued to yell loudly at this nurse stating 'all of a
sudden my heart medications were changed and no one told me, I want to talk to the contract admin, although they don't know what they are doing here'. Pt was asked if he wanted to discuss this with the associate application developer VISUAL MERCHANDISING ASSISTANT and he refused, a print out list of
his medications were given to the patient and reminded that he is scheduled for an Echo in the morning and his contract admin will be made aware of his concerns. Pt agreeable with the plan of care.
[2023-09-16] MEDS: TYLENOL PO (23:50)
[2023-09-17 03:22] VITALS: BP 138/69
[2023-09-17] MEDS: TYLENOL PO ×2 (03:36→09:58)
[2023-09-17 05:25] LABS: % Basophils 0.1 % (0-2); % Immature Granulocytes 0.4 % (0-0.5); % Monocytes 3.4 % (1.7-9.3); % Neutrophils 94.1 % (42.2-75.2); Absolute Immature Granulocytes 0.1 10^3/uL (0-0.05); Absolute Lymphocytes 0.3 10^3/uL (1.2-3.4); Absolute Monocytes 0.5 10^3/uL (0.1-0.6); Absolute Neutrophils 12.7 10^3/uL (1.4-6.5); Hemoglobin 8.9 g/dL (13.0-18.0); Mean Corpuscular Hgb 29.4 pg (27.0-31.0); Mean Corpuscular Volume 89.1 fL (80.0-94.0); Mean Platelet Volume 11.7 fL (7.4-10.4); Nucleated Red Blood Cells % 0 % (-); Platelet Count 154 10^3/uL (130-400); Red Blood Cell Count 3.03 10^6/uL (4.70-6.10); Red Cell Dist. Width 14.4 % (11.5-14.5); White Blood Cell Count 13.5 10^3/uL (4.8-10.8)
[2023-09-17 06:00] VITALS: BMI 17.0
[2023-09-17 06:11] LABS: ALT (SGPT) 12 U/L (0-50); AST (SGOT) 17 U/L (17-59); Albumin 2.2 g/dl (3.5-5.0); Alkaline Phosphatase 110 U/L (38-126); Blood Urea Nitrogen 33 mg/dl (9-20); Calcium 8.4 mg/dl (8.4-10.2); Carbon Dioxide 27 mmol/L (22-30); Chloride 106 mmol/L (98-107); Estimated Creatinine Clearance 71 ml/min; Glucose 108 mg/dl (70-99); Potassium 3.6 mmol/L (3.5-5.1); Sodium 142 mmol/L (135-145); Total Bilirubin 0.7 mg/dl (0.2-1.3); Total Protein 4.6 g/dl (6.3-8.2); eGFR > 60.00
[2023-09-17] MEDS: SPIRIVA RESPIMAT 2.5 MCG 2 PUFF INH (07:30)
[2023-09-17] MEDS: ADVAIR HFA 115/21 MCG INHALER 1 PUFF INH ×2 (07:30→19:51)
[2023-09-17] MEDS: VENTOLIN NEBULES 2.5 MG INH ×3 (07:31→19:51)
[2023-09-17 07:50] VITALS: BP 157/76
--- NOTE | 2023-09-17 08:47 | W.PN.HOSP.TC ---
Today's Communication/Plan
-
IV Zosyn
Assessment / Plan
Assessment / Plan
Mr. 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
with 4 days shortness of breath, productive cough. He moved here from [place], [place] 5 days ago
IMPRESSION:
Extensive left lower lobe pneumonia
Severe emphysematous changes
There is no pulmonary embolism
CVS: S1-S2 normal
Chest: Decreased breath sounds bilaterally, rales
Abdomen: Soft, NT / Bowel sounds present
Extremities: No edema, normal pulses
BUTTER LIQUEFIER: Non focal exam
# Left lower lobe pneumonia with leukocytosis
Pseudomonas Pneumonia
change abx to IV Zosyn 4.5 q 6 and follow up final cultures
Incentive spirometry
CT PE study with extensive left lower lobe pneumonia no PE.�
Follow leukocytosis
# Lactic acidosis-Resolved
# Hypokalemia-replace non-SD troponin elevation
#Drop in hg 2/2 dilution
#iron studies show KYM
-patient now okay with lower dose aspirin
-will need outpatient work-up for KYM
-Hg relatively stable
# Severe emphysema on albuterol and fluticasone and Spiriva inhalers as outpatient
�Chronic respiratory failure on 2 to 3 L of oxygen at home
# Mildly elevated troponin-likely secondary to respiratory distress-follow
routine echo
# Urinary frequency
Check urine analysis and culture
#Mild Thrombocytopenia-Watch
# History of prostate cancer with radiation in the past
# History of SCC lung� with left upper lobectomy in 2000
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
He cannot recall the details, but states he had laryngeal cancer and received 28 courses of radiation therapy per Dr. Sidhu in September of 2012.
# 45 pound weight loss-patient needs further workup as outpatient for this
# Hypertension-on Coreg
# Hypomagnesemia-replace
# Prolonged QTc-replace magnesium and follow on telemetry
# Hyperlipidemia-on simvastatin
# At least patient has moderate protein calorie malnutrition
Nutrition consultation
Ensure
# History of noncritical coronary disease.
# History of aortic valve replacement in 2006-bioprosthetic aortic valve
# History of lumbar disc surgery
# Nephrolithiasis
# Hypoalbuminemia
# DVT prophylaxis-Lovenox
# DNR status per discussion with patient and daughter at bedside
D/W RN
Anticipated Discharge: 24 - 48 hours
Subjective/Interval History
-
Date of Service: September 17, 2023
more difficulty coughing up mucus
no fevers
Objective Data
-
Labs:
Laboratory Results
09/17/23
04:10
WBC 13.5 H
Hgb 8.9 L
Hct 27.0 L
Plt Count 154 D
Sodium 142
Potassium 3.6
Chloride 106
Carbon Dioxide 27
BUN 33 H
Creatinine 0.6 L
Glucose 108 H
Calcium 8.4
Total Bilirubin 0.7
AST 17
ALT 12
Alkaline Phosphatase 110
Vital Signs:
Vital Signs
Temp Pulse Resp BP Pulse Ox
97.5 F 91 24 157/76 94
09/17/23 07:50 09/17/23 07:50 09/17/23 07:50 09/17/23 07:50 09/17/23 07:50
I&O
09/16/23 09/17/23 09/18/23
06:59 06:59 06:59
Intake Total 1780 / 1780 840 / 840
Output Total 185 / 185 725 / 725
Balance 1595 / 1590 115 / 115
Review of Systems
-
History Source: Patient
All other systems: Reviewed and negative
Data Reviewed
-
Diagnostic Radiology: Report Reviewed by me
Labs: Labs Reviewed by me
[2023-09-17] MEDS: FEOSOL 325 MG PO (09:56)
[2023-09-17] MEDS: KCL 40 MEQ PO (09:56)
[2023-09-17] MEDS: LIPITOR 10 MG PO (09:56)
[2023-09-17] MEDS: TOPROL XL 50 MG PO (09:57)
[2023-09-17] MEDS: LOW STRENGTH ASPIRIN 81 MG PO (09:57)
[2023-09-17] MEDS: ZOSYN 100 IV ×3 (09:57→22:11)
[2023-09-17] MEDS: PROTONIX 40 MG PO (09:57)
[2023-09-17] MEDS: COREG PO (09:58)
[2023-09-17] MEDS: VIBRAMYCIN PO (09:58)
[2023-09-17] MEDS: FLAGYL PO (09:58)
[2023-09-17] MEDS: TYLENOL 650 MG PO ×2 (11:16→16:53)
[2023-09-17] MEDS: VENTOLIN NEBULES INH (11:47)
[2023-09-17 12:23] VITALS: BP 126/72
--- NOTE | 2023-09-17 13:06 | W.PN.UPDATE ---
Update Note
Progress Note Update
unfortunately VSE shows aspiration all consistencies solids and liquids and strict NPO recommended. Patient updated with on speaker phone. He is agreeable to tube feeds. Currently treating PNA which may have exacerbated weakness. Plan to
repeat VSE in several days and hopefully can start oral versus further discussions of PEG tube. Patient and aware there is a possibility he will need permanent tube feeding.
-GI asked to place dobhoff
-dietary consult, TF
--- NOTE | 2023-09-17 13:20 | PTOTSP ---
Video Swallow Examination
Patient with functional oral stage and severe pharyngeal stage of swallowing with responsive aspiration of thin liquids via consecutive cup sips and silent aspiration of pharyngeal residue with thin liquids via straw, nectar thick liquids, honey,
and puree. Cued coughing could not consistently clear larynx/airway. Cued secondary swallows were not effective to clear retention with puree.
Suspect this is acute on chronic dysphagia (UTI, PNA). Patient has signs concerning for aspiration complications (PNA, history of laryngeal cancer with prior radiation). Per discussion with MD, will repeat video swallow study after medical
treatment of acute illness to determine if there has been an improvement in swallowing function.
Recommend:
1. NPO - consider temporary non-oral means of nutrition/hydration and medications
2. Oral care 3-5x daily with strict aspiration precautions
3. Aspiration Risk Hydration Protocol - ice chips and single sips of liquid after oral care
4. Continued dysphagia tx warranted at the acute care level for education and dysphagia therapy.
--- NOTE | 2023-09-17 13:46 | PN.CDI ---
CDI
- -
CDI:
Physician Documentation Request
Admit Date: 09/15/23 12:55
Dear Doctor Eh,
Please review the following and provide your response in the progress notes.
Clinical Indicators:
The diagnosis of supraventricular tachycardia was included in the signed EKG 09/15/2023
Please indicate in your progress notes if you are in agreement that the above diagnosis is valid for this patient:
____ - SVT is a valid diagnosis (Please include it in your progress notes)
____ - SVT is not a valid diagnosis for this patient
____ - Other
____ - unable to determine
Use of terms such as suspected, likely, concern for, or probable are acceptable for a diagnosis that is being evaluated, monitored or treated as if it exists and can be coded in the inpatient setting, when documented at the time of discharge.
Thank you,
Carolee Jean RN, BSN
CDI Specialist
tiger text
Please use your independent medical judgment in providing your response.
--- NOTE | 2023-09-17 13:49 | PN.CDI ---
CDI
- -
CDI:
Physician Documentation Request
Admit Date: 09/15/23 12:55
Dear Doctor Eh,
09/16 RD note states 'With weight loss of > 20% in 1 month and observed muscle and fat wasting pt meets AND/ASPEN criteria for severe protein calorie malnutrition of chronic illness.'
09/17 hospitalist progress note states ' At least patient has moderate protein calorie malnutrition - Nutrition consultation'
Based on the information, which of the following most accurately represents the patient's nutritional status?
Severe Malnutrition
Moderate malnutrition
Other (please specify)
[place] Criteria ([facility] Hospitalist 2017)
2 or more criteria must be present for either
non severe or severe malnutrition
Note that the criteria differs related to the
presence of an acute or chronic illness
Acute Illness Chronic Illness
Energy Intake Non Severe: <75% for >7 days Non Severe: <75% for >1 month
Severe: <50% for >5 days Severe: <75% for >1 month
Weight Loss Non Severe: 1-2% over 1 week Non Severe: 5% over 1 month
5% over 1 month 7.5% over 3 months
7.5% over 3 months 10% over 6 months
1 year N/A 20% over 1 year
Severe: >2% over 1 week Severe: >5% over 1 month
>5% over 1 month >7.5% over 3 months
>7.5% over 3 months >10% over 6 months
1 year N/A >20% over 1 year
Body Fat Non Severe: Mild Decrease Non Severe: Mild Loss
Severe: Moderate Decrease Severe: Severe Loss
Muscle Mass Non Severe: Mild Decrease Non Severe: Mild Loss
Severe: Moderate Decrease Severe: Severe Loss
Fluid Accumulation Non Severe: Mild Accumulation Non Severe: Mild Accumulation
Severe: Moderate to severe Severe: Moderate to severe
accumulation accumulation
Reduced Cyber Defense Analyst Strength Non Severe: N/A Non Severe: N/A
Severe: Measurably reduced Severe: Measurably reduced
Additional criteria that can be used to Determine if Mild or Moderate Malnutrition (Merck Manual 2018)
Mild Moderate Severe
Albumin gm/dl <3.0 gm/dl <2.5 gm/dl <2.0 gm/dl
Pre Albumin mg/dl <15 gm/dl <10 mg/dl <5.0 mg/dl
BMI <18.5 <17 <16
Use of terms such as suspected, likely, concern for, or probable (associated with a specific diagnosis that is being evaluated, monitored, or treated as if it exists) are acceptable and can be coded in the inpatient setting, when documented at the
time of discharge.
Thank you,
Carolee Jean RN, BSN
CDI Specialist
tiger text
Please use your independent medical judgment in providing your response.
--- NOTE | 2023-09-17 13:54 | PN.CDI ---
CDI
- -
CDI:
Physician Documentation Request
Admit Date: 09/15/23 12:55
Dear Doctor Eh,
Patient is admitted with pseudomonas pneumonia
The diagnosis of sepsis was documented on 09/15 in H&P, but is not consistently noted in subsequent documentation.
09/15 wbc 18.8
Patient has remained afebrile
09/15 presenting heart rate 149
09/15 presenting respiratory rate 26
Please clarify the following:
____ - Sepsis was present on admission
____ - Sepsis was ruled out
____ - Other
Use of terms such as suspected, likely, concern for, or probable (associated with a specific diagnosis that is being evaluated, monitored, or treated as if it exists) are acceptable and can be coded in the inpatient setting, when documented at the
time of discharge.
Thank you,
Carolee Jean RN, BSN
CDI Specialist
tiger text
Please use your independent medical judgment in providing your response.
--- NOTE | 2023-09-17 14:03 | PN.CDI ---
CDI
- -
CDI:
Physician Documentation Request
Admit Date: 09/15/23 12:55
Dear Doctor Eh,
Pt noted to have history of COPD on chronic 2 to 3L.
Progress notes states 'chronic respiratory failure...'
Please clarify the type of chronic respiratory failure:
hypoxic
hypercapnic
hypoxic and hypercapnic
other
Use of terms such as suspected, likely, concern for, or probable (associated with a specific diagnosis that is being evaluated, monitored, or treated as if it exists) are acceptable and can be coded in the inpatient setting, when documented at the
time of discharge.
Thank you,
Carolee Jean RN, BSN
CDI Specialist
tiger text
Please use your independent medical judgment in providing your response.
--- NOTE | 2023-09-17 14:03 | PTOTSP ---
Addendum entered and electronically signed by ST Shaun 09/17/23 14:04:
*Aspiration risk hydration protocol via single tsp/cup sips. No straws.
Original Note:
Video Swallow Examination
Patient with functional oral stage and severe pharyngeal stage of swallowing with responsive aspiration of thin liquids via consecutive cup sips and silent aspiration of pharyngeal residue with thin liquids via straw, nectar thick liquids, honey,
and puree. Cued coughing could not consistently clear larynx/airway. Cued secondary swallows were not effective to clear retention with puree.
Suspect this is acute on chronic dysphagia. Patient has signs concerning for aspiration complications (PNA). Per discussion with MD, will repeat video swallow study after medical treatment of acute illness to determine if there has been an
improvement in swallowing function.
Recommend:
1. NPO - consider temporary non-oral means of nutrition/hydration and medications
2. Oral care 3-5x daily with strict aspiration precautions
3. Aspiration Risk Hydration Protocol - ice chips and single sips of liquid after oral care
4. Continued dysphagia tx warranted at the acute care level for education and dysphagia therapy.
--- NOTE | 2023-09-17 14:12 | CM ---
met with patient and joao.at bedside. 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 she did however feel that with a dx of lung cancer he would eventually need
one.discussed results of therapy eval which recs home with home care services.pt is now npo awaiting dht.he is on iv abx for pna and uti. home oxygen is with [facility] at 3 litrs ma in [place].
plan for now is home with [facility].no referral placed yet.
--- NOTE | 2023-09-17 14:16 | W.PN.UPDATE ---
Addendum entered and electronically signed by ALEX Edmond 09/17/23 14:20:
updated and agreeable to placement
Original Note:
Update Note
Progress Note Update
Asked to see for DHT placement. hx lung CA with lobectomy, prostates CA with radiation, COPD, chronic O2 , AVR now with PNA. VSE with aspiration. DHT placed right nare at 60- 65 cm without difficulty confirmed with insufflation. Check X ray to
confirm placement. check dietary eval for tube feed recs.
[2023-09-17 15:50] VITALS: BP 153/66
[2023-09-17] MEDS: LOVENOX 40 MG SC (16:53)
[2023-09-17 19:15] VITALS: BP 145/84
[2023-09-17] MEDS: TYLENOL ORAL SOLUTION 650 MG TUBE (20:30)
[2023-09-17 23:14] VITALS: BP 136/73
[2023-09-18] VITALS (8 sets, daily range): BP systolic 113–152; BP diastolic 66–86; PULSE 86; O2SAT 98; BMI 16.9
[2023-09-18] MEDS: TYLENOL ORAL SOLUTION TUBE ×2 (00:12→03:00)
[2023-09-18] MEDS: ZOSYN 100 IV ×4 (03:00→21:57)
[2023-09-18] MEDS: DUONEB 3 ML INH ×2 (05:43→09:14)
[2023-09-18 06:11] LABS: % Basophils 0.4 % (0-2); % Immature Granulocytes 0.6 % (0-0.5); % Lymphocytes 2.2 % (20.5-51.1); % Monocytes 1.6 % (1.7-9.3); % Neutrophils 95.2 % (42.2-75.2); Absolute Immature Granulocytes 0.1 10^3/uL (0-0.05); Absolute Lymphocytes 0.2 10^3/uL (1.2-3.4); Absolute Monocytes 0.1 10^3/uL (0.1-0.6); Absolute Neutrophils 7.4 10^3/uL (1.4-6.5); Hemoglobin 11.4 g/dL (13.0-18.0); Mean Corp Hgb Conc. 32.6 g/dL (33.0-37.0); Mean Corpuscular Hgb 29.5 pg (27.0-31.0); Mean Corpuscular Volume 90.7 fL (80.0-94.0); Mean Platelet Volume 11.4 fL (7.4-10.4); Nucleated Red Blood Cells % 0 % (-); Platelet Count 162 10^3/uL (130-400); Red Blood Cell Count 3.86 10^6/uL (4.70-6.10); Red Cell Dist. Width 14.6 % (11.5-14.5); White Blood Cell Count 7.7 10^3/uL (4.8-10.8)
[2023-09-18 06:45] LABS: Blood Urea Nitrogen 28 mg/dl (9-20); Calcium 8.5 mg/dl (8.4-10.2); Carbon Dioxide 31 mmol/L (22-30); Estimated Creatinine Clearance 62 ml/min; Glucose 131 mg/dl (70-99); Magnesium 1.6 mg/dl (1.6-2.3); Potassium 3.9 mmol/L (3.5-5.1); Sodium 143 mmol/L (135-145); eGFR > 60.00
[2023-09-18 06:50] LABS: Chloride 107 mmol/L (98-107)
[2023-09-18] MEDS: SPIRIVA RESPIMAT 2.5 MCG INH (07:45)
[2023-09-18] MEDS: ADVAIR HFA 115/21 MCG INHALER 1 PUFF INH ×2 (07:46→19:18)
[2023-09-18] MEDS: VENTOLIN NEBULES INH (07:49)
[2023-09-18] MEDS: FEOSOL 325 MG TUBE (08:57)
[2023-09-18] MEDS: LIPITOR 10 MG PO (08:57)
[2023-09-18] MEDS: LOW STRENGTH ASPIRIN 81 MG TUBE (08:57)
[2023-09-18] MEDS: PREVACID 15 MG TUBE (08:57)
[2023-09-18] MEDS: LOPRESSOR 25 MG TUBE ×2 (08:58→20:39)
[2023-09-18] MEDS: TYLENOL ORAL SOLUTION 650 MG TUBE ×4 (08:58→20:40)
--- NOTE | 2023-09-18 09:33 | W.PN.HOSP.TC ---
Addendum entered and electronically signed by Ritika Stauffer MD 09/18/23 10:57:
moderate protein calorie malnutrition - Nutrition consultation appreciated
Sepsis present on admission 2/2 Pseudomonas PNA
-IV Zosyn
Hypoxic respiratory failure acute on chronic
-O2 as needed
SVT
-initial EKG patient tachycardic in setting resp distress
-monitoring on telemetry
Addendum entered and electronically signed by Ritika Stauffer MD 09/18/23 09:51:
*patietn re-evaluated and now much more calm; presentation more likely 2/2 agitation, having trouble breathing through nose
-no current need for high flow
-change albuterol to levalbuterol
-mucous clearing techniques - encouraged acapella, patient was refusing
-F/U further pulmonary recs
Original Note:
Today's Communication/Plan
-
-high flow support for now
-trial of lasix
-repeat portable x-ray
-continue nebulizers
-IV Zosyn
-Pulmonary consult
Assessment / Plan
Assessment / Plan
Mr. 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
with 4 days shortness of breath, productive cough. He moved here from [place], [place] [address] PE
IMPRESSION:
Extensive left lower lobe pneumonia
Severe emphysematous changes
There is no pulmonary embolism
TTE
�CONCLUSIONS
�Technically fair study.
�Left ventricle is small in size. Normal left ventricular systolic function.
�Left ventricular ejection fraction is 55%. Normal regional wall motion. Mild
�concentric left ventricular hypertrophy.
�Mild mitral regurgitation.
�Normally functioning bioAVR - Peak gradient 10mmHg/Mean gradient 6mmHg - no
�aortic regurgitation is seen.
�Mild tricuspid regurgitation. Estimated pulmonary artery pressure of 35-40
�mmHg.
�No prior echo for comparison.
�
# Left lower lobe pneumonia
Pseudomonas Pneumonia
-Day 2 IV Zosyn 4.5 q 6 and follow up final cultures
-CT PE study with extensive left lower lobe pneumonia no PE.�
-WBC improving
-09/18: increased tachypnea/tachycardia - repeat CXR portable, SOB not improved with nebulizers. Given weight gain will trial one dose IV lasix. Given work of breathing start high flow; will consult Pulmonary
Recurrent Aspiration
-likely 2/2 hx laryngeal CA and radiation
-VSE 09/17 with patient aspirating on all solids and liquids consistencies. He was agreeable to strict NPO, NGT feeds and retrial VSE later in the week once improving from infection
-may need to have discussions of PEG tub elater this week
# Lactic acidosis-Resolved
# Hypokalemia-replace
#Drop in hg 2/2 dilution
#iron studies show KYM
-patient now okay with lower dose aspirin
-will need outpatient work-up for KYM
-Hg relatively stable
# Severe emphysema on albuterol and fluticasone and Spiriva inhalers as outpatient
�Chronic respiratory failure on 2 to 3 L of oxygen at home
-Pulm consult as above
-no wheezing heard on exam
# Mildly elevated troponin-likely secondary to respiratory distress-follow
TTE without WMA
# Urinary frequency
-UA without e/o infection
#Mild Thrombocytopenia-Watch
# History of prostate cancer with radiation in the past
# History of SCC lung� with left upper lobectomy in 2000
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
He cannot recall the details, but states he had laryngeal cancer and received 28 courses of radiation therapy per Dr. Sidhu in September of 2012.
# 45 pound weight loss-patient needs further workup as outpatient for this
# Hypertension-on Coreg
# Hypomagnesemia-replace
# Prolonged QTc-replace magnesium and follow on telemetry
# Hyperlipidemia-on simvastatin
# At least patient has moderate protein calorie malnutrition
Nutrition consultation
Ensure
# History of noncritical coronary disease.
# History of aortic valve replacement in 2006-bioprosthetic aortic valve
# History of lumbar disc surgery
# Nephrolithiasis
# Hypoalbuminemia
# DVT prophylaxis-Lovenox
# DNR status per discussion with patient and daughter at bedside
Anticipated Discharge: > 48 hours
Subjective/Interval History
-
Date of Service: September 18, 2023
patient states he has been short of breath all night
he states he is having trouble breathing, nebulizers not helping
no chest pain
Objective Data
-
Labs:
Laboratory Results
09/18/23
05:54
WBC 7.7
Hgb 11.4 L D
Hct 35.0 L
Plt Count 162
Sodium 143
Potassium 3.9
Chloride 107
Carbon Dioxide 31 H
BUN 28 H
Creatinine 0.7
Glucose 131 H
Calcium 8.5
Vital Signs:
Vital Signs
Temp Pulse Resp BP Pulse Ox
98.0 F 119 18 130/86 92
09/18/23 08:19 09/18/23 08:58 09/18/23 08:19 09/18/23 08:58 09/18/23 08:19
I&O
09/17/23 09/18/23 09/19/23
06:59 06:59 06:59
Intake Total 840 / 840
Output Total 725 / 725 200 / 200
Balance 115 / 115 -200 / -200
Review of Systems
-
History Source: Patient
All other systems: Reviewed and negative
Physical Exam
-
General: Other (cachectic appearing, chronically ill appearing, he is more tachypneic and tachycardic this morning)
HEENT: PERRLA
Respiratory: Decreased Breath Sounds; Negative Wheezes
Cardiac: S1/S2 and Tachycardic
GI: Soft, Nontender and Nondistended
Musculoskeletal: No Edema
Skin: Warm and Dry; Negative Rash
Neuro: Awake and Alert
Psych: Anxious
Data Reviewed
-
Diagnostic Radiology: Report Reviewed by me
Labs: Labs Reviewed by me
--- NOTE | 2023-09-18 09:35 | PTCARENOTE ---
Patient with tachycardia this morning, reported difficulty sleeping. Breathing treatment given, tube feed on hold, per Dr Stauffer (no residual noted). Chest x-ray ordered.
--- NOTE | 2023-09-18 09:36 | CM ---
Reviewed the chart notes. Patient currently has a DHT and plans if for peg tube placement. Patient refusing SNF/rehab prior to transitioning to home. PT recommendations is home health. CM continues to be available to patient/family and is
monitoring medical plan for needs at discharge.
Plan: Discharge plan is home with [facility] services. Order will be needed.
--- NOTE | 2023-09-18 10:04 | CON.PUL ---
Consultation
Consultation Request
Date/Time Consultation Requested: 09-18-23
Date/Time Consultation Performed: 09-18-23
Requesting Provider: Hospitalist
Performing Provider: Dr Calvillo
Reason for Consultation: dyspnea
Medical History
-
Chief Complaint: dyspnea
History of Present Illness:
Mr Bhanu García is a 77/M adm 09-15 with 4 d h/o dyspnea and productive cough. 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 Adm CTA
showed LLL pneumonia, severe emphysema and no PE. At ER given vanco/zosyn, changed on adm to doxycycline/metronidazole/ceftriaxone. Sputum cx positive for pansensitive Ps aerug, atbs changed to zosyn on 09-17. VSE 09-17 showed aspiration of all
consistencies of solids and liquids and strict NPO was recommended. Pulm consulted 09-18 for interim increase in dyspnea and O2 requirement
Past Medical History
Past Medical History: Other (see A&P for PMH/PSH)
Social History
Tobacco: Former Smoker
Alcohol: None
Drug: None
Personal:
Living: With Family
Employment: Retired
Family History
Family History: CAD (M: with AMI at age 68)
Allergies / Home Medications
Allergies
Allergy/AdvReac Type Severity Reaction Status Date / Time
No Known Allergies Allergy Verified 09/15/23 08:14
Home Medications
Medication Instructions Recorded Confirmed Last Taken Type
simvastatin 20 mg tablet 20 mg PO HS High Cholesterol 02/21/11 09/15/23 09/14/23 History
albuterol sulfate 90 mcg/actuation 2 puff inhalation R QIDPRN PRN sob 09/15/23 09/15/23 Unknown History
aerosol inhaler
aspirin 325 mg tablet 325 mg PO DAILY Blood Clot 09/15/23 09/15/2309/14/24 History
Prevention/Tx
fluticasone propionate 115 1 puff inhalation R BID COPD 09/15/23 09/15/23 09/14/23 History
mcg-salmeterol 21 mcg/actuation
HFA inhaler
metoprolol succinate 50 mg 50 mg PO DAILY Blood Pressure 09/15/23 09/15/23 09/14/23 History
tablet,extended release 24 hr
tiotropium bromide 1.25 1 puff inhalation R DAILY COPD 09/15/23 09/16/23 09/14/23 History
mcg/actuation mist for inhalation
(Spiriva Respimat)
Review of Systems
-
History Source: Patient
All other systems: Negative unless noted
Constitutional: Weight Loss
Respiratory: Cough and Trouble Breathing
Neuro: Weakness
Vitals / Labs / Diagnostic Testing
Vital Signs
Temp Pulse Resp BP Pulse Ox
98.0 F 112 16 130/86 88
09/18/23 08:19 09/18/23 09:31 09/18/23 09:31 09/18/23 08:58 09/18/23 09:31
Lab Data
09/18/23 05:54
09/18/23 05:54
Microbiology
09/16/23 00:07 Sputum Respiratory Culture - Final
Pseudomonas aeruginosa
09/16/23 00:07 Sputum Gram Stain - Final
09/15/23 10:19 Blood/Venous Blood Culture - Preliminary
No Growth in 48 hours- Final report to follow
09/15/23 09:34 Blood/Venous Blood Culture - Preliminary
No Growth in 48 hours- Final report to follow
09/15/23 10:37 Nasal Swab Influenza Types A & B (MARIELOS) - Final
Negative for Influenza A & B, NAAT
Negative results must be combined with clinical observations
and patient history.
Nucleic Acid Amplification test (NAAT)performed on the
[employer] NOW platform.
Diagnostic Testing:
Physical Exam
-
HEENT: Normocephalic
Cardiovascular: Murmur (n), Peripheral Edema (n) and JVD (n)
Respiratory: Rales (L), Rhonchi and Accessory Resp Muscle Use (mild at rest on O2)
GI: Non Distended and Non Tender
Neurology: Awake, AO x 3 and No Motor Deficits
Skin: Dry
General: Respiratory Distress
Assessment
-
Assessment:
Mr Bhanu García is a 77/M adm 09-15 with 4 d h/o dyspnea and productive cough. 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 Adm CTA
showed LLL pneumonia, severe emphysema and no PE. At ER given vanco/zosyn, changed on adm to doxycycline/metronidazole/ceftriaxone. Sputum cx positive for pansensitive Ps aerug, atbs changed to zosyn on 09-17. VSE 09-17 showed aspiration of all
consistencies of solids and liquids and strict NPO was recommended. Pulm consulted 09-18 for interim increase in dyspnea and O2 requirement
Impression:
Acute on chronic respiratory failure
CAP, L sided, large size infiltrate: tan-S Ps aerug
Functional oral stage and severe pharyngeal stage dysphagia: acute on chronic
Resolved leukocytosis
Elevated troponins
Elevated BNP
COVID/flu negative
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
Very severe COPD on O2 2-3L, fluticasone/salmeterol, albuterol, spiriva
MARYAM lobectomy for lung cancer in 2010
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
Bio AVR 2006, sternotomy
Prostate cancer s/o XRT
Lumbar spine surgery
Nephrolithiasis
HTN
HLD
Cachexia
DNR
Plan:
Afebrile, no hypotension but mild tachycardia
POx 88% on 2L, POx 96% on 3L at time of visit
Acapella valve, encouraged to embrace regimen
Asp precs
Noted surge of dyspnea earlier this morning
Resolved quickly with ^O2 and BDs, patient acknowledges ^ anxiety level (recognizes the severity of underlying COPD)
Continue zosyn for Ps aerug pneumonia (tan-S), D2 on 09-18
Duration of treatment at least 7-10 d
Can convert to high dose levofloxacin or ciprofloxacin once more stable
CXR 09-18 with large L sided infiltrate. No infiltrate at R field
Continue spiriva and advair
Continue levalbuterol tid and prn
Severe dysphagia, suspected acute on chronic: speech rec strict NPO for now
Wt loss, cachexia
Continue new onset enteral feedings by DHT
Considering PEG placement if no improvement of dysphagia
DVT prophylaxis
DNR status
D/w Mr García, all questions answered to satisfaction
Diagnostic tests:
CXR 09-18-23: c/w October 2013. Chronic L field volume loss, sternotomy wiring. New large L sided infiltrate with sparing. DHT tip in high position. R field with no infiltrate
Chest CTA 09-15-23: severe emphysema. Large L sided infiltrate
[2023-09-18] MEDS: MAGNESIUM SULFATE 50 IV (10:26)
[2023-09-18] MEDS: XOPENEX 1.25 MG INHALANT SOLUTION INH ×2 (13:42→19:18)
--- NOTE | 2023-09-18 14:52 | PN.CDI ---
CDI
- -
CDI:
Physician Documentation Request
Admit Date: 09/15/23 12:55
Dear Doctor Eh,
09/18 hospitalist progress notes states 'Sepsis present on admission 2/2 Pseudomonas PNA'
Patient also noted to have acute on chronic respiratory failure.
09/15 patient had a lactic acid of 3.7
Please clarify which of the following most accurately describes the status of the patient's infection:
Sepsis only
Severe Sepsis
- Sepsis with associated acute organ dysfunction, such as renal or respiratory failure
- Documentation should indicate the association between the sepsis and the organ dysfunction
Other
Use of terms such as suspected, likely, concern for, or probable (associated with a specific diagnosis that is being evaluated, monitored, or treated as if it exists) are acceptable and can be coded in the inpatient setting, when documented at the
time of discharge.
Thank you,
Carolee Jean RN, BSN
CDI Specialist
tiger text
Please use your independent medical judgment in providing your response.
[2023-09-18] MEDS: LOVENOX 40 MG SC (17:50)
[2023-09-19] MEDS: TYLENOL ORAL SOLUTION TUBE ×2 (00:32→04:17)
[2023-09-19 03:44] VITALS: BP 136/76
[2023-09-19] MEDS: XOPENEX 1.25 MG INHALANT SOLUTION INH ×4 (04:12→21:11)
[2023-09-19] MEDS: ZOSYN 100 IV ×4 (04:17→23:48)
[2023-09-19 05:21] LABS: % Basophils 0.2 % (0-2); % Eosinophils 0.2 % (0-6); % Immature Granulocytes 1.8 % (0-0.5); % Lymphocytes 6.6 % (20.5-51.1); % Monocytes 5.7 % (1.7-9.3); % Neutrophils 85.5 % (42.2-75.2); Absolute Immature Granulocytes 0.1 10^3/uL (0-0.05); Absolute Lymphocytes 0.3 10^3/uL (1.2-3.4); Absolute Monocytes 0.3 10^3/uL (0.1-0.6); Absolute Neutrophils 3.9 10^3/uL (1.4-6.5); Hematocrit 30.8 % (39.0-52.0); Mean Corp Hgb Conc. 32.5 g/dL (33.0-37.0); Mean Corpuscular Hgb 28.7 pg (27.0-31.0); Mean Corpuscular Volume 88.5 fL (80.0-94.0); Nucleated Red Blood Cells % 0 % (-); Platelet Count 147 10^3/uL (130-400); Red Blood Cell Count 3.48 10^6/uL (4.70-6.10); Red Cell Dist. Width 14.7 % (11.5-14.5); White Blood Cell Count 4.6 10^3/uL (4.8-10.8)
[2023-09-19 05:54] LABS: Blood Urea Nitrogen 30 mg/dl (9-20); Calcium 8.1 mg/dl (8.4-10.2); Carbon Dioxide 29 mmol/L (22-30); Chloride 104 mmol/L (98-107); Estimated Creatinine Clearance 72 ml/min; Glucose 173 mg/dl (70-99); Potassium 3.7 mmol/L (3.5-5.1); Sodium 142 mmol/L (135-145); eGFR > 60.00
[2023-09-19 06:00] VITALS: BMI 17.1
[2023-09-19 07:15] VITALS: BP 140/81
[2023-09-19] MEDS: ADVAIR HFA 115/21 MCG INHALER 1 PUFF INH ×2 (07:35→21:11)
[2023-09-19] MEDS: SPIRIVA RESPIMAT 2.5 MCG 2 PUFF INH (07:35)
--- NOTE | 2023-09-19 08:27 | W.PN.HOSP.TC ---
Today's Communication/Plan
-
IV Zosyn
tube feeds
consider repeat VSE Sunday
inhalers
appreciate pulmonary
Assessment / Plan
Assessment / Plan
Mr. 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
with 4 days shortness of breath, productive cough. He moved here from [place], [place] [address] PE
IMPRESSION:
Extensive left lower lobe pneumonia
Severe emphysematous changes
There is no pulmonary embolism
TTE
�CONCLUSIONS
�Technically fair study.
�Left ventricle is small in size. Normal left ventricular systolic function.
�Left ventricular ejection fraction is 55%. Normal regional wall motion. Mild
�concentric left ventricular hypertrophy.
�Mild mitral regurgitation.
�Normally functioning bioAVR - Peak gradient 10mmHg/Mean gradient 6mmHg - no
�aortic regurgitation is seen.
�Mild tricuspid regurgitation. Estimated pulmonary artery pressure of 35-40
�mmHg.
�No prior echo for comparison.
�
# Left lower lobe pneumonia
Pseudomonas Pneumonia
Sepsis 2/2 PNA
Acute on chronic respiratory insufficiency
-Day 3 IV Zosyn 4.5 q 6 and follow up final cultures
-CT PE study with extensive left lower lobe pneumonia no PE.�
-WBC improving
-09/18: increased tachypnea/tachycardia - repeat CXR portable with worsening PNA, s/p trial 1 dose lasix; clinically looks improved today
-appreciate pulmonary
# Severe emphysema on albuterol and fluticasone and Spiriva inhalers as outpatient
�Chronic respiratory failure on 2 to 3 L of oxygen at home
-Pulm consult
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
Recurrent Aspiration
-likely 2/2 hx laryngeal CA and radiation
-VSE 09/17 with patient aspirating on all solids and liquids consistencies. He was agreeable to strict NPO, NGT feeds and retrial VSE later in the week once improving from infection
-may need to have discussions of PEG tube later this week
# Lactic acidosis-Resolved
# Hypokalemia-replace
#Drop in hg 2/2 dilution
#iron studies show KYM
-patient now okay with lower dose aspirin
-will need outpatient work-up for KYM
-Hg relatively stable
# Mildly elevated troponin-likely secondary to respiratory distress-follow
TTE without WMA
# Urinary frequency
-UA without e/o infection
#Mild Thrombocytopenia-Watch
# History of prostate cancer with radiation in the past
# History of SCC lung� with left upper lobectomy in 2000
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
He cannot recall the details, but states he had laryngeal cancer and received 28 courses of radiation therapy per Dr. Sidhu in September of 2012.
# 45 pound weight loss-patient needs further workup as outpatient for this
# Hypertension-on Coreg
# Hypomagnesemia-replace
# Prolonged QTc-replace magnesium and follow on telemetry
# Hyperlipidemia-on simvastatin
# At least patient has moderate protein calorie malnutrition
Nutrition consultation
Ensure
# History of noncritical coronary disease.
# History of aortic valve replacement in 2006-bioprosthetic aortic valve
# History of lumbar disc surgery
# Nephrolithiasis
# Hypoalbuminemia
# DVT prophylaxis-Lovenox
# DNR status per discussion with patient and daughter at bedside
Anticipated Discharge: > 48 hours
Subjective/Interval History
-
Date of Service: September 19, 2023
patient stating he feels hungry and thirsty but overall a little better
Objective Data
-
Labs:
Laboratory Results
09/19/23
04:52
WBC 4.6 L
Hgb 10.0 L
Hct 30.8 L
Plt Count 147
Sodium 142
Potassium 3.7
Chloride 104
Carbon Dioxide 29
BUN 30 H
Creatinine 0.6 L
Glucose 173 H
Calcium 8.1 L
Vital Signs:
Vital Signs
Temp Pulse Resp BP Pulse Ox
97.4 F 92 16 140/81 99
09/19/23 07:15 09/19/23 07:40 09/19/23 07:40 09/19/23 07:15 09/19/23 07:40
I&O
09/18/23 09/19/23 09/20/23
06:59 06:59 06:59
Intake Total 1175 / 1175
Output Total 650 / 650
Balance 525 / 525
Review of Systems
-
History Source: Patient
All other systems: Reviewed and negative
Physical Exam
-
General: Other (cachectic appearing, chronically ill appearing, he is more tachypneic and tachycardic this morning)
HEENT: PERRLA
Respiratory: Decreased Breath Sounds; Negative Wheezes
Cardiac: S1/S2 and Tachycardic
GI: Soft, Nontender and Nondistended
Musculoskeletal: No Edema
Skin: Warm and Dry; Negative Rash
Neuro: Awake and Alert
Psych: Anxious
Data Reviewed
-
Diagnostic Radiology: Report Reviewed by me
Labs: Labs Reviewed by me
--- NOTE | 2023-09-19 08:57 | W.PN.PUL3 ---
Today's Communication / Plan
-
O2
Atb
BDs
Assessment
-
Assessment:
Mr Bhanu García is a 77/M adm 09-15 with 4 d h/o dyspnea and productive cough. 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 Adm CTA
showed LLL pneumonia, severe emphysema and no PE. At ER given vanco/zosyn, changed on adm to doxycycline/metronidazole/ceftriaxone. Sputum cx positive for pansensitive Ps aerug, atbs changed to zosyn on 09-17. VSE 09-17 showed aspiration of all
consistencies of solids and liquids and strict NPO was recommended. Pulm consulted 09-18 for interim increase in dyspnea and O2 requirement
Impression:
Acute on chronic respiratory failure
CAP, large size L infiltrate: tan-S Ps aerug
Functional oral stage and severe pharyngeal stage dysphagia: acute on chronic
Resolved leukocytosis
Elevated troponins
Elevated BNP
COVID/flu negative
Conditions AQUATIC DIRECTOR:
Very severe COPD on O2 2-3L, fluticasone/salmeterol, albuterol, spiriva
MARYAM lobectomy for lung cancer in 2010
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
Bio AVR 2006, sternotomy
Prostate cancer s/o XRT
Lumbar spine surgery
Nephrolithiasis
HTN
HLD
Cachexia
DNR
Plan:
Remains afebrile and hemodyn stable
POx 99% on 2L at rest
Acapella valve, encouraged to embrace regimen
Asp precs
Continue zosyn for Ps aerug pneumonia (atn-S), D2 on 09-18
Negative blood cxs
Duration of treatment at least 7-10 d
Can convert to high dose levofloxacin or ciprofloxacin once more stable
CXR 09-18 with large L sided infiltrate. No infiltrate at R field
Continue spiriva and advair
Continue levalbuterol tid and prn
Severe dysphagia, suspected acute on chronic: speech rec strict NPO for now
Wt loss, cachexia
Continue new onset enteral feedings by DHT
Retest VSE 09-21
Considering PEG placement if no improvement of dysphagia
DVT prophylaxis
DNR status, overall prognosis guarded
D/w Mr García, all questions answered to satisfaction
Diagnostic tests:
CXR 09-18-23: c/w October 2013. Chronic L field volume loss, sternotomy wiring. New large L sided infiltrate with sparing. DHT tip in high position. R field with no infiltrate
Chest CTA 09-15-23: severe emphysema. Large L sided infiltrate
Subjective Data
-
Date of Service:
Date of Service: September 19, 2023
Chief Complaint: Pulmonary Follow Up
Subjective:
No major resp events reported overnight
Continues on O2
Cough and sputum production slightly improved, no hemoptysis
Review of Systems
General: Fever (n), Sweats (n), Chills and Satisfactory Appetite (n)
Cardiopulmonary: Dyspnea, Sputum Production, Wheezing (n), Chest Pain (n), Edema (n) and Hemoptysis (n)
GI: Abdominal Pain (n), Nausea (n) and Vomiting (n)
Neuro: Weakness
Objective Data
Data Reviewed
Vital Signs / I&O / Oxygen:
Vital Signs
Temp Pulse Resp BP Pulse Ox
97.4 F 92 16 140/81 99
09/19/23 07:15 09/19/23 07:40 09/19/23 07:40 09/19/23 07:15 09/19/23 07:40
Intake and Output
09/18/23 09/19/23 09/20/23
06:59 06:59 06:59
Intake Total 1175 / 1175
Output Total 650 / 650
Balance 525 / 525
SaO2 99
Nasal Cannula flow liters per 2
minute
Physical Exam
General: Respiratory Distress and Other (cachectic)
HEENT: Normocephalic
Cardiovascular: Regular Rhythm, Murmur (n), JVD (n) and Peripheral Edema (n)
Respiratory: Wheeze (n), Crackles (L), Accessory Resp Muscle Use and Stridor (n)
GI: Soft, Non Distended and Non Tender
Neurology: Awake, AO x 3 and No Motor Deficits
Skin: Dry
Labs/Micro/Reports
Lab Data
09/19/23 04:52
09/19/23 04:52
Microbiology
09/15/23 10:19 Blood/Venous Blood Culture - Preliminary
No Growth in 72 hours- Final report to follow
09/15/23 09:34 Blood/Venous Blood Culture - Preliminary
No Growth in 72 hours- Final report to follow
09/16/23 00:07 Sputum Respiratory Culture - Final
Pseudomonas aeruginosa
09/16/23 00:07 Sputum Gram Stain - Final
[2023-09-19] MEDS: PREVACID 15 MG TUBE (09:22)
[2023-09-19] MEDS: TYLENOL ORAL SOLUTION 650 MG TUBE ×2 (09:22→11:23)
[2023-09-19] MEDS: LOPRESSOR 25 MG TUBE ×2 (09:22→19:56)
[2023-09-19] MEDS: LIPITOR 10 MG PO (09:22)
[2023-09-19] MEDS: FEOSOL 325 MG TUBE (09:22)
[2023-09-19] MEDS: LOW STRENGTH ASPIRIN 81 MG TUBE (09:23)
[2023-09-19 11:05] VITALS: BP 120/63
--- NOTE | 2023-09-19 14:29 | CM ---
Reviewed the chart notes and spoke with the patient and his daughter at the bedside. Patient continues with DHT feeding. Per notes, potential repeat VSE Sunday. CM continues to be available to patient/family and is monitoring medical plan for
needs at discharge.
Plan: Discharge plans will depend on the patient's progress.
[2023-09-19 15:15] VITALS: BP 129/63
[2023-09-19] MEDS: LOVENOX SC ×2 (18:08→18:18)
[2023-09-19 19:39] VITALS: BP 143/75
[2023-09-19 23:18] VITALS: BP 145/79
[2023-09-20] MEDS: XOPENEX 1.25 MG INHALANT SOLUTION INH ×4 (02:14→20:43)
[2023-09-20 03:14] VITALS: BP 124/84
[2023-09-20 04:09] LABS: Venous Blood Gas B.E. 8.2 mmol/L (-4 to +4); Venous Blood Gas HCO3 31.9 mmol/L (22-27); Venous Blood Gas O2 Sat % 99.8 %; Venous Blood Gas pCO2 40 mmHg (35-48); Venous Blood Gas pH 7.51 (7.32-7.43); Venous Blood Gas pO2 182 mmHg (30-50)
[2023-09-20 04:25] LABS: Hemoglobin 9.3 g/dL (13.0-18.0); Mean Corp Hgb Conc. 32.1 g/dL (33.0-37.0); Mean Corpuscular Hgb 28.4 pg (27.0-31.0); Mean Corpuscular Volume 88.4 fL (80.0-94.0); Mean Platelet Volume 12.1 fL (7.4-10.4); Platelet Count 157 10^3/uL (130-400); Red Blood Cell Count 3.28 10^6/uL (4.70-6.10); Red Cell Dist. Width 14.6 % (11.5-14.5); White Blood Cell Count 3.1 10^3/uL (4.8-10.8)
[2023-09-20] MEDS: ZOSYN 100 IV ×4 (04:42→21:15)
[2023-09-20 04:44] LABS: Carbon Dioxide 31 mmol/L (22-30); Chloride 103 mmol/L (98-107); Estimated Creatinine Clearance 73 ml/min; Glucose 198 mg/dl (70-99); Magnesium 1.8 mg/dl (1.6-2.3); Sodium 143 mmol/L (135-145); eGFR > 60.00
[2023-09-20 04:53] LABS: Blood Urea Nitrogen 22 mg/dl (9-20)
[2023-09-20 06:00] VITALS: BMI 16.9
--- NOTE | 2023-09-20 06:30 | PTCARENOTE ---
Late entry - 2129: Patient w/ confusion. At beginning of shift, patient AAOx3, but forgetful and repeating multiple questions. At approximately 2129, patient attempting to get OOB stating he needed an ambulance and patient was attempting to urinate
in his trash can. Patient reoriented and apologetic and used urinal w/ this RN assistance. POX 95% on 3L. Temp 98.7. Patient AAOx3 after reorientation. DIRECTOR LEARNING notified. Instructed this RN to bladder scan patient. No urine able to be found in patient's
bladder. DIRECTOR LEARNING to bedside to assess patient. Portable CXR ordered and taken.
--- NOTE | 2023-09-20 06:35 | PTCARENOTE ---
Patient w/ worsening confusion throughout shift. Stating he was at [facility] multiple times and forgetful to date. Forgetful to events that occurred recently. Patient agitated and uncooperative with staff at times. At approximately 0200,
patient requested PRN breathing treatment. Respiratory notified. When respiratory arrived for PRN treatment, patient was yelling on his phone to his to call the police. Patient then handed phone to respiratory therapist who spoke with patient's
. ELEMENTARY ASSISTANT PRINCIPAL notified of events. VBG added to AM labs. ELEMENTARY ASSISTANT PRINCIPAL notified of lab results. IV potassium ordered for patient for a K of 3.0. Patient refusing IV potassium and repeatedly yelling 'no' when asked if this RN could begin his potassium administration.
[2023-09-20 07:15] VITALS: BP 156/94
[2023-09-20] MEDS: SPIRIVA RESPIMAT 2.5 MCG 2 PUFF INH (07:35)
[2023-09-20] MEDS: ADVAIR HFA 115/21 MCG INHALER 1 PUFF INH ×2 (07:36→20:43)
--- NOTE | 2023-09-20 08:18 | W.PN.HOSP.TC ---
Addendum entered and electronically signed by Ritika Stauffer MD 09/20/23 14:45:
patient had severe sepsis on presentation
-resolved
-lactic acidosis resolved
Original Note:
Today's Communication/Plan
-
IV Zosyn
F/U further pulm recs
VSE tomorrow
will return when is in room
Assessment / Plan
Assessment / Plan
Mr. 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
with 4 days shortness of breath, productive cough. He moved here from [place], [place] [address] PE
IMPRESSION:
Extensive left lower lobe pneumonia
Severe emphysematous changes
There is no pulmonary embolism
TTE
�CONCLUSIONS
�Technically fair study.
�Left ventricle is small in size. Normal left ventricular systolic function.
�Left ventricular ejection fraction is 55%. Normal regional wall motion. Mild
�concentric left ventricular hypertrophy.
�Mild mitral regurgitation.
�Normally functioning bioAVR - Peak gradient 10mmHg/Mean gradient 6mmHg - no
�aortic regurgitation is seen.
�Mild tricuspid regurgitation. Estimated pulmonary artery pressure of 35-40
�mmHg.
�No prior echo for comparison.
�
# Left lower lobe pneumonia
Pseudomonas Pneumonia
Sepsis 2/2 PNA
Acute on chronic respiratory insufficiency
-Day 4 IV Zosyn 4.5 q 6
-CT PE study with extensive left lower lobe pneumonia no PE.�
- leukocytosis resolved
-09/18: increased tachypnea/tachycardia - repeat CXR portable with worsening PNA, s/p trial 1 dose lasix; clinically looks improved today
-appreciate pulmonary
-continue acapella, scheduled robitussin
# Severe emphysema on albuterol and fluticasone and Spiriva inhalers as outpatient
�Chronic respiratory failure on 2 to 3 L of oxygen at home
-Pulm consult
-continue RESEARCH PSYCHOLOGIST inhalers, changed albuterol to levalbuterol
Recurrent Aspiration
-likely 2/2 hx laryngeal CA and radiation
-VSE 09/17 with patient aspirating on all solids and liquids consistencies. He was agreeable to strict NPO, NGT feeds and retrial VSE later in the week once improving from infection
-repeat VSE tomorrow
-may need to have discussions of PEG tube later this week
# Lactic acidosis-Resolved
# Hypokalemia-replace
#Drop in hg 2/2 dilution
#iron studies show KYM
-patient now okay with lower dose aspirin
-will need outpatient work-up for KYM
-Hg relatively stable
# Mildly elevated troponin-likely secondary to respiratory distress-follow
TTE without WMA
# Urinary frequency
-UA without e/o infection
#Mild Thrombocytopenia-Watch
# History of prostate cancer with radiation in the past
# History of SCC lung� with left upper lobectomy in 2000
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
He cannot recall the details, but states he had laryngeal cancer and received 28 courses of radiation therapy per Dr. Sidhu in September of 2012.
# 45 pound weight loss-patient needs further workup as outpatient for this
# Hypertension-on Coreg
# Hypomagnesemia-replace
# Prolonged QTc-replace magnesium and follow on telemetry
# Hyperlipidemia-on simvastatin
# At least patient has moderate protein calorie malnutrition
Nutrition consultation
Ensure
# History of noncritical coronary disease.
# History of aortic valve replacement in 2006-bioprosthetic aortic valve
# History of lumbar disc surgery
# Nephrolithiasis
# Hypoalbuminemia
# DVT prophylaxis-Lovenox
# DNR status per discussion with patient and daughter at bedside
Anticipated Discharge: > 48 hours
Subjective/Interval History
-
Date of Service: September 20, 2023
patient upset that I came when his wasn't there, I'll return
states he was feeling okay until I woke him up
Objective Data
-
Labs:
Laboratory Results
09/20/23
04:03
WBC 3.1 L
Hgb 9.3 L
Hct 29.0 L
Plt Count 157
Sodium 143
Potassium 3.0 L
Chloride 103
Carbon Dioxide 31 H
BUN 22 H
Creatinine 0.6 L
Glucose 198 H
Calcium 8.0 L
Vital Signs:
Vital Signs
Temp Pulse Resp BP Pulse Ox
98.1 F 111 16 156/94 92
09/20/23 07:15 09/20/23 07:37 09/20/23 07:37 09/20/23 07:15 09/20/23 07:37
I&O
09/19/23 09/20/23 09/21/23
06:59 06:59 06:59
Intake Total 1175 / 1175 1100 / 1100
Output Total 650 / 650 625 / 625
Balance 525 / 525 475 / 475
Review of Systems
-
History Source: Patient
All other systems: Reviewed and negative
Physical Exam
-
General: Other (cachectic appearing, chronically ill appearing, tachypneic )
HEENT: PERRLA
Respiratory: Decreased Breath Sounds; Negative Wheezes
Cardiac: S1/S2 and Tachycardic
GI: Soft, Nontender and Nondistended
Musculoskeletal: No Edema
Skin: Warm and Dry; Negative Rash
Neuro: Awake and Alert
Psych: Anxious
Data Reviewed
-
Diagnostic Radiology: Report Reviewed by me
Labs: Labs Reviewed by me
--- NOTE | 2023-09-20 08:57 | CM ---
Reviewed the chart notes. Patient remains with DHT feedings. Per notes, VSE tomorrow. CM continues to be available to patient/family and is monitoring medical plan for needs at discharge.
Plan: Discharge plans will depend on the patient's progress.
[2023-09-20] MEDS: LOW STRENGTH ASPIRIN 81 MG TUBE (09:45)
[2023-09-20] MEDS: FEOSOL 325 MG TUBE (09:48)
[2023-09-20] MEDS: ROBITUSSIN 100 MG TUBE ×3 (09:48→17:29)
[2023-09-20] MEDS: LOPRESSOR 25 MG TUBE (09:48)
[2023-09-20] MEDS: PREVACID 15 MG TUBE (09:48)
[2023-09-20] MEDS: KCL ELIXIR 40 MEQ TUBE (09:49)
[2023-09-20] MEDS: LIPITOR PO (09:52)
[2023-09-20] MEDS: LIPITOR 10 MG TUBE (09:56)
[2023-09-20 11:00] VITALS: BP 153/84
[2023-09-20] MEDS: KCL 270 MEQ IV (11:58)
[2023-09-20 13:25] LABS: Glucose - Point of Care 118 mg/dl (70-99)
[2023-09-20 15:15] VITALS: BP 135/79; PULSE 110; O2SAT 93
[2023-09-20] MEDS: NOVOLOG FLEXPEN-LOW RESISTANCE SC ×3 (15:30→23:54)
--- NOTE | 2023-09-20 16:29 | W.PN.PUL3 ---
Today's Communication / Plan
-
O2
Atbs
VSE
Assessment
-
Assessment:
Mr Bhanu García is a 77/M adm 09-15 with 4 d h/o dyspnea and productive cough. 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 Adm CTA
showed LLL pneumonia, severe emphysema and no PE. At ER given vanco/zosyn, changed on adm to doxycycline/metronidazole/ceftriaxone. Sputum cx positive for pansensitive Ps aerug, atbs changed to zosyn on 09-17. VSE 09-17 showed aspiration of all
consistencies of solids and liquids and strict NPO was recommended. Pulm consulted 09-18 for interim increase in dyspnea and O2 requirement
Impression:
Acute on chronic respiratory failure
CAP, large size L infiltrate: tan-S Ps aerug
Functional oral stage and severe pharyngeal stage dysphagia: acute on chronic
Resolved leukocytosis
Elevated troponins
Elevated BNP
COVID/flu negative
Conditions IT ARCHITECT:
Very severe COPD on O2 2-3L, fluticasone/salmeterol, albuterol, spiriva
MARYAM lobectomy for lung cancer in 2010
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
Bio AVR 2006, sternotomy
Prostate cancer s/o XRT
Lumbar spine surgery
Nephrolithiasis
HTN
HLD
Cachexia
DNR
Plan:
Remains afebrile and hemodyn stable
POx 99% on 2L at rest
Acapella valve, encouraged to embrace regimen
Asp precs
Continue zosyn for Ps aerug pneumonia (tan-S), D2 on 09-18
Negative blood cxs
Duration of treatment at least 7-10 d
Can convert to high dose levofloxacin or ciprofloxacin once more stable
Dyspnea and productive cough improving
CXR 09-18 with large L sided infiltrate. No infiltrate at R field
Continue spiriva and advair
Continue levalbuterol tid and prn
Severe dysphagia, suspected acute on chronic: speech rec strict NPO for now
Wt loss, cachexia
Continue new onset enteral feedings by DHT
Retest VSE 09-21
Considering PEG placement if no improvement of dysphagia
DVT prophylaxis
DNR status, overall prognosis guarded
D/w Mr García, all questions answered to satisfaction
D/w RN at bedside
Diagnostic tests:
CXR 09-18-23: c/w October 2013. Chronic L field volume loss, sternotomy wiring. New large L sided infiltrate with sparing. DHT tip in high position. R field with no infiltrate
Chest CTA 09-15-23: severe emphysema. Large L sided infiltrate
Subjective Data
-
Date of Service:
Date of Service: September 20, 2023
Chief Complaint: Pulmonary Follow Up
Subjective:
No major events reported
Continues on O2 and atbs
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
Review of Systems
General: Fever (n), Sweats (n) and Chills
Cardiopulmonary: Dyspnea, Cough, Sputum Production and Wheezing (n)
GI: Abdominal Pain (n), Nausea (n) and Vomiting
Neuro: Weakness
Objective Data
Data Reviewed
Vital Signs / I&O / Oxygen:
Vital Signs
Temp Pulse Resp BP Pulse Ox
98.1 F 106 20 135/79 95
09/20/23 15:15 09/20/23 15:15 09/20/23 15:15 09/20/23 15:15 09/20/23 15:15
Intake and Output
09/19/23 09/20/23 09/21/23
06:59 06:59 06:59
Intake Total 1175 / 1175 1100 / 1100
Output Total 650 / 650 625 / 625
Balance 525 / 525 475 / 475
SaO2 95
Nasal Cannula flow liters per 2
minute
Physical Exam
General: Respiratory Distress and Other (cachectic)
HEENT: Normocephalic
Cardiovascular: Regular Rhythm, Murmur (n), JVD (n) and Peripheral Edema (n)
Respiratory: Wheeze (n), Crackles (L), Accessory Resp Muscle Use and Stridor (n)
GI: Soft, Non Distended and Non Tender
Neurology: Awake, AO x 3 and No Motor Deficits
Skin: Dry
Labs/Micro/Reports
Lab Data
09/20/23 04:03
09/20/23 04:03
Microbiology
09/15/23 09:34 Blood/Venous Blood Culture - Final
No Growth - Final Report
09/15/23 10:19 Blood/Venous Blood Culture - Final
No Growth - Final Report
09/16/23 00:07 Sputum Respiratory Culture - Final
Pseudomonas aeruginosa
09/16/23 00:07 Sputum Gram Stain - Final
--- NOTE | 2023-09-20 17:10 | W.PN.UPDATE ---
Update Note
Progress Note Update
Checked with RN - JAS working okay. Tube feeding on,.
[2023-09-20] MEDS: LOVENOX 40 MG SC (17:29)
[2023-09-20] MEDS: SEROQUEL 12.5 MG TUBE (17:33)
[2023-09-20 17:53] LABS: Glucose - Point of Care 189 mg/dl (70-99)
[2023-09-20 19:40] VITALS: BP 135/107
[2023-09-20] MEDS: LOPRESSOR 5 MG IV (21:13)
[2023-09-20] MEDS: ROBITUSSIN TUBE (21:15)
[2023-09-20] MEDS: LOPRESSOR TUBE (21:15)
[2023-09-20 23:30] VITALS: BP 150/88
[2023-09-20 23:48] LABS: Glucose - Point of Care 119 mg/dl (70-99)
[2023-09-21 04:10] VITALS: BP 148/80
[2023-09-21] MEDS: ZOSYN 100 IV ×4 (04:23→21:57)
[2023-09-21 06:00] VITALS: BMI 17.8
[2023-09-21 06:34] LABS: Glucose - Point of Care 110 mg/dl (70-99)
[2023-09-21] MEDS: NOVOLOG FLEXPEN-LOW RESISTANCE SC ×3 (06:41→18:32)
[2023-09-21 06:45] LABS: Blood Urea Nitrogen 19 mg/dl (9-20); Carbon Dioxide 33 mmol/L (22-30); Chloride 102 mmol/L (98-107); Estimated Creatinine Clearance 76 ml/min; Glucose 114 mg/dl (70-99); Magnesium 1.8 mg/dl (1.6-2.3); Potassium 3.2 mmol/L (3.5-5.1); Sodium 143 mmol/L (135-145); eGFR > 60.00
[2023-09-21] MEDS: ADVAIR HFA 115/21 MCG INHALER 1 PUFF INH ×2 (07:20→20:10)
[2023-09-21] MEDS: SPIRIVA RESPIMAT 2.5 MCG 2 PUFF INH (07:21)
[2023-09-21] MEDS: XOPENEX 1.25 MG INHALANT SOLUTION INH ×3 (07:21→20:10)
[2023-09-21 07:27] VITALS: BP 128/78
[2023-09-21] MEDS: LOW STRENGTH ASPIRIN TUBE (09:11)
[2023-09-21] MEDS: FEOSOL TUBE (09:11)
[2023-09-21] MEDS: LOPRESSOR TUBE ×2 (09:11→21:11)
[2023-09-21] MEDS: PREVACID TUBE (09:11)
[2023-09-21] MEDS: LIPITOR TUBE (09:11)
[2023-09-21] MEDS: ROBITUSSIN TUBE ×4 (09:12→21:58)
[2023-09-21 11:04] VITALS: BP 144/76
--- NOTE | 2023-09-21 11:04 | W.PN.PUL3 ---
Today's Communication / Plan
-
O2
Atb
CXR
Assessment
-
Assessment:
Mr Bhanu García is a 77/M adm 09-15 with 4 d h/o dyspnea and productive cough. 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 Adm CTA
showed LLL pneumonia, severe emphysema and no PE. At ER given vanco/zosyn, changed on adm to doxycycline/metronidazole/ceftriaxone. Sputum cx positive for pansensitive Ps aerug, atbs changed to zosyn on 09-17. VSE 09-17 showed aspiration of all
consistencies of solids and liquids and strict NPO was recommended. Pulm consulted 09-18 for interim increase in dyspnea and O2 requirement
Impression:
Acute on chronic respiratory failure
CAP, large size L infiltrate: tan-S Ps aerug
Functional oral stage and severe pharyngeal stage dysphagia: acute on chronic
Resolved leukocytosis
Elevated troponins
Elevated BNP
COVID/flu negative
Conditions TREE PRUNER:
Very severe COPD on O2 2-3L, fluticasone/salmeterol, albuterol, spiriva
MARYAM lobectomy for lung cancer in 2010
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
Bio AVR 2006, sternotomy
Prostate cancer s/o XRT
Lumbar spine surgery
Nephrolithiasis
HTN
HLD
Cachexia
DNR
Plan:
Remains afebrile and hemodyn stable
POx 99% on 2L at rest
Acapella valve, encouraged to embrace regimen
Asp precs
Continue zosyn for Ps aerug pneumonia (tan-S), D5 on 09-21
Negative blood cxs
Duration of treatment at least 7-10 d
Can convert to high dose levofloxacin or ciprofloxacin once more stable
Dyspnea and productive cough improving
CXR 09-22 ordered
CXR 09-18 with large L sided infiltrate. No infiltrate at R field
Continue spiriva and advair
Continue levalbuterol tid and prn
Severe dysphagia VSE 09-17, suspected acute on chronic: speech rec strict NPO for now
Wt loss, cachexia
Continue new onset enteral feedings by DHT
Retested VSE 09-21:severe pharyngeal stage. Rec NPO
Considering PEG placement, patient currently undecided
DVT prophylaxis
DNR status, overall prognosis guarded
D/w Mr García, all questions answered to satisfaction
Diagnostic tests:
CXR 09-18-23: c/w October 2013. Chronic L field volume loss, sternotomy wiring. New large L sided infiltrate with sparing. DHT tip in high position. R field with no infiltrate
Chest CTA 09-15-23: severe emphysema. Large L sided infiltrate
Subjective Data
-
Date of Service:
Date of Service: September 21, 2023
Chief Complaint: Pulmonary Follow Up
Subjective:
No major events reported overnight
Unfortunately repeat VSE shows significant dysphagia
Patient is still considering PEG tube
Review of Systems
General: Fever (n), Sweats (n), Chills and Satisfactory Appetite (n)
HEENT: Epistaxis and Dysphagia
Cardiopulmonary: Dyspnea, Cough, Sputum Production and Wheezing (n)
GI: Abdominal Pain (n), Nausea and Vomiting
Neuro: Weakness
Objective Data
Data Reviewed
Vital Signs / I&O / Oxygen:
Vital Signs
Temp Pulse Resp BP Pulse Ox
97.0 F 101 16 128/78 95
09/21/23 07:27 09/21/23 09:11 09/21/23 07:27 09/21/23 09:11 09/21/23 07:27
Intake and Output
09/20/23 09/21/23 09/22/23
06:59 06:59 06:59
Intake Total 1100 / 1100 200 / 200
Output Total 625 / 625 1050 / 1050
Balance 475 / 475 -850 / -850
SaO2 95
Nasal Cannula flow liters per 2
minute
Physical Exam
General: Respiratory Distress (improved) and Other (cachectic)
HEENT: Normocephalic
Cardiovascular: Regular Rhythm, Murmur (n), JVD (n) and Peripheral Edema (n)
Respiratory: Wheeze (n), Crackles (L), Accessory Resp Muscle Use and Stridor (n)
GI: Soft, Non Distended and Non Tender
Neurology: Awake, AO x 3 and No Motor Deficits
Skin: Dry
Labs/Micro/Reports
Lab Data
09/20/23 04:03
09/21/23 05:50
Microbiology
09/15/23 09:34 Blood/Venous Blood Culture - Final
No Growth - Final Report
09/15/23 10:19 Blood/Venous Blood Culture - Final
No Growth - Final Report
09/16/23 00:07 Sputum Respiratory Culture - Final
Pseudomonas aeruginosa
09/16/23 00:07 Sputum Gram Stain - Final
--- NOTE | 2023-09-21 11:12 | PTOTSP ---
Video Swallow Examination
Patient presents with functional oral stage and severe pharyngeal stage of swallowing. Aspiration without a cough response occurred with thin via tsp (due to poor airway closure) and nectar, honey, and puree via tsp (due to poor pharyngeal
clearance/residue). Cued coughs were ineffective to fully clear airway. There has been no improvement in swallowing function compared to last study 09/17/2023.
Etiology of dysphagia is felt to be from patient's history of laryngeal cancer and late effects of radiation. Patient is at risk for chronic aspiration based on the results of this test. Further discussion regarding goals of care for
nutrition/hydration warranted.
Recommend:
1. NPO
2. Medications - via non-oral means
3. Aspiration Risk Hydration Protocol - ice chips after oral care
4. Will continue to follow for patient/family education and dysphagia exercises as appropriate.
[2023-09-21 11:33] LABS: Glucose - Point of Care 104 mg/dl (70-99)
[2023-09-21 12:00] LABS: Glycohemoglobin (HgbA1c) 5.8 % (4.0-5.6)
--- NOTE | 2023-09-21 12:04 | W.PN.HOSP.TC ---
Today's Communication/Plan
-
GOC discussions to decide on whether or not PEG to be placed
Assessment / Plan
Assessment / Plan
Mr. 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
with 4 days shortness of breath, productive cough. He moved here from [place], [place] 5 [address] PE
IMPRESSION:
Extensive left lower lobe pneumonia
Severe emphysematous changes
There is no pulmonary embolism
TTE
�CONCLUSIONS
�Technically fair study.
�Left ventricle is small in size. Normal left ventricular systolic function.
�Left ventricular ejection fraction is 55%. Normal regional wall motion. Mild
�concentric left ventricular hypertrophy.
�Mild mitral regurgitation.
�Normally functioning bioAVR - Peak gradient 10mmHg/Mean gradient 6mmHg - no
�aortic regurgitation is seen.
�Mild tricuspid regurgitation. Estimated pulmonary artery pressure of 35-40
�mmHg.
�No prior echo for comparison.
�
# Left lower lobe pneumonia
Pseudomonas Pneumonia
Sepsis 2/2 PNA
Acute on chronic respiratory insufficiency
-Day 5 IV Zosyn 4.5 q 6
-CT PE study with extensive left lower lobe pneumonia no PE.�
- leukocytosis resolved
-09/18: increased tachypnea/tachycardia - repeat CXR portable with worsening PNA, s/p trial 1 dose lasix; clinically looks improved today
-appreciate pulmonary
-continue acapella, scheduled robitussin
# Severe emphysema on albuterol and fluticasone and Spiriva inhalers as outpatient
�Chronic respiratory failure on 2 to 3 L of oxygen at home
-Pulm consult
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
Recurrent Aspiration
-likely 2/2 hx laryngeal CA and radiation
-VSE with aspiration on all foods and liquids
-discussion of PEG had this AM. Discussed options of PEG with continued ST but possibility of bed bug exterminator full reliance on tube feeds versus hospice where patient can eat freely with the understanding he may pass from an aspiration event.
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 Further conversations to be had with his daughters today.
-will start IVF in meantime
# Lactic acidosis-Resolved
# Hypokalemia-replace
#Drop in hg 2/2 dilution
#iron studies show KYM
-patient now okay with lower dose aspirin
-will need outpatient work-up for KYM
-Hg relatively stable
# Mildly elevated troponin-likely secondary to respiratory distress-follow
TTE without WMA
# Urinary frequency
-UA without e/o infection
#Mild Thrombocytopenia-Watch
# History of prostate cancer with radiation in the past
# History of SCC lung� with left upper lobectomy in 2000
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
He cannot recall the details, but states he had laryngeal cancer and received 28 courses of radiation therapy per Dr. Sidhu in September of 2012.
# 45 pound weight loss-patient needs further workup as outpatient for this
# Hypertension-on Coreg
# Hypomagnesemia-replace
# Prolonged QTc-replace magnesium and follow on telemetry
# Hyperlipidemia-on simvastatin
# At least patient has moderate protein calorie malnutrition
Nutrition consultation
Ensure
# History of noncritical coronary disease.
# History of aortic valve replacement in 2006-bioprosthetic aortic valve
# History of lumbar disc surgery
# Nephrolithiasis
# Hypoalbuminemia
# DVT prophylaxis-Lovenox
# DNR status per discussion with patient and daughter at bedside
Anticipated Discharge: 24 - 48 hours
Subjective/Interval History
-
Date of Service: September 21, 2023
seen post VSE
discussed results
patient more clear headed today
Objective Data
-
Labs:
Laboratory Results
09/21/23
05:50
Sodium 143
Potassium 3.2 L
Chloride 102
Carbon Dioxide 33 H
BUN 19
Creatinine 0.6 L
Glucose 114 H
Calcium 8.0 L
Vital Signs:
Vital Signs
Temp Pulse Resp BP Pulse Ox
97.4 F 97 16 144/76 95
09/21/23 11:04 09/21/23 11:04 09/21/23 11:04 09/21/23 11:04 09/21/23 11:04
I&O
09/20/23 09/21/23 09/22/23
06:59 06:59 06:59
Intake Total 1100 / 1100 200 / 200
Output Total 625 / 625 1050 / 1050
Balance 475 / 475 -850 / -850
Review of Systems
-
History Source: Patient
All other systems: Reviewed and negative
Physical Exam
-
General: Other (cachectic appearing, chronically ill appearing, tachypneic )
HEENT: PERRLA
Respiratory: Decreased Breath Sounds; Negative Wheezes
Cardiac: S1/S2 and Tachycardic
GI: Soft, Nontender and Nondistended
Musculoskeletal: No Edema
Skin: Warm and Dry; Negative Rash
Neuro: Awake and Alert
Psych: Anxious
Data Reviewed
-
Diagnostic Radiology: Report Reviewed by me
Labs: Labs Reviewed by me
[2023-09-21] MEDS: LR 1000 IV (12:51)
[2023-09-21] MEDS: KCL 270 MEQ IV (12:51)
--- NOTE | 2023-09-21 13:46 | W.PN.UPDATE ---
Update Note
Progress Note Update
Patient pulled out the Dobhoff tube last night. He is considering PEG tube and wishes to discuss this further with his family, who will come to the hospital later today. Will hold off on Dobhoff re-placement now until pt reaches decision about PEG.
[2023-09-21 15:20] VITALS: BP 154/86
[2023-09-21] MEDS: SEROQUEL TUBE (17:28)
[2023-09-21] MEDS: LOVENOX 40 MG SC (17:34)
[2023-09-21 18:27] LABS: Glucose - Point of Care 103 mg/dl (70-99)
[2023-09-21 19:35] VITALS: BP 154/86
[2023-09-21] MEDS: ATIVAN 0.5 MG IV (22:13)
[2023-09-21] MEDS: NSS (PRESERVATIVE FREE) 0.25 ML IV (22:14)
[2023-09-21 23:45] VITALS: BP 153/81
[2023-09-22 00:11] LABS: Glucose - Point of Care 93 mg/dl (70-99)
[2023-09-22 00:25] LABS: Glucose - Point of Care 82 mg/dl (70-99)
[2023-09-22] MEDS: NOVOLOG FLEXPEN-LOW RESISTANCE SC ×4 (00:27→18:05)
[2023-09-22 03:55] VITALS: BP 158/95
[2023-09-22] MEDS: ZOSYN 100 IV ×4 (04:26→21:51)
[2023-09-22 05:00] VITALS: BMI 16.7
[2023-09-22 05:51] LABS: Glucose - Point of Care 91 mg/dl (70-99)
--- NOTE | 2023-09-22 06:00 | PTCARENOTE ---
Patient agitated overnight. Complaining of SOB after exertion, increased oxygen and pox at 87 but would come up to 94-99 after deep breathing. Stating, 'I want to speak to a doctor'. Informed him that the doctor doesn't come for a few more hours but
can talk to nurse practitioner, he denied. In beginning of night around 2200, pt requested anxiety/sleeping aid. Is anxious due to upcoming possible procedure. One time dose of ativan ordered and given. Patient has no further complaints at this
time. Resting comfortably. Call zhao within reach.
[2023-09-22] MEDS: LR IV (06:26)
[2023-09-22 08:01] LABS: Blood Urea Nitrogen 16 mg/dl (9-20); Calcium 7.8 mg/dl (8.4-10.2); Carbon Dioxide 32 mmol/L (22-30); Chloride 106 mmol/L (98-107); Estimated Creatinine Clearance 71 ml/min; Glucose 86 mg/dl (70-99); Magnesium 1.8 mg/dl (1.6-2.3); Sodium 143 mmol/L (135-145); eGFR > 60.00
[2023-09-22 08:07] LABS: Potassium 3.4 mmol/L (3.5-5.1)
[2023-09-22 08:09] VITALS: BP 157/97
[2023-09-22] MEDS: ADVAIR HFA 115/21 MCG INHALER 1 PUFF INH ×2 (08:23→19:45)
[2023-09-22] MEDS: SPIRIVA RESPIMAT 2.5 MCG 2 PUFF INH (08:23)
[2023-09-22] MEDS: XOPENEX 1.25 MG INHALANT SOLUTION INH ×3 (08:23→19:45)
[2023-09-22] MEDS: FEOSOL TUBE (08:27)
[2023-09-22] MEDS: LIPITOR TUBE (08:27)
[2023-09-22] MEDS: LOPRESSOR TUBE (08:27)
[2023-09-22] MEDS: LOW STRENGTH ASPIRIN TUBE (08:28)
[2023-09-22] MEDS: PREVACID TUBE (08:28)
[2023-09-22] MEDS: ROBITUSSIN TUBE ×2 (08:28→13:33)
[2023-09-22 10:43] VITALS: BP 151/94
[2023-09-22 11:47] LABS: Glucose - Point of Care 96 mg/dl (70-99)
[2023-09-22] MEDS: LR 1000 IV (12:35)
--- NOTE | 2023-09-22 12:50 | CON.GI ---
Consultation
-
Date/Time Consultation Requested: 09/22/2022
Date/Time Consultation Performed: 09/22/2022
Performing Provider: Jaydon Scherer
Reason for Consultation: PEG
Medical History
Chief Complaint / HPI
Chief Complaint: aspiration PNA
History of Present Illness:
Patient is a 77-year-old male with history of COPD on home oxygen, MARYAM lobectomy for lung cancer in 2010, laryngeal cancer status post resection of SqCC VC polyp in 2011, bio AVR in 2006 admitted with LLL pneumonia suspected be from aspiration.
Patient had speech eval and failed swallow evaluation. We have been consulted for PEG placement.
Past Medical History
Past Medical History: Other
Past Surgical History: Other
Social History
Tobacco: Former Smoker
Alcohol: None
Allergies / Home Medications
Allergy/AdvReac Type Severity Reaction Status Date / Time
No Known Allergies Allergy Verified 09/15/23 08:14
Medication Instructions Recorded
simvastatin 20 mg tablet 20 mg PO HS High Cholesterol 02/21/11
albuterol sulfate 90 mcg/actuation 2 puff inhalation R QIDPRN PRN sob 09/15/23
aerosol inhaler
aspirin 325 mg tablet 325 mg PO DAILY Blood Clot 09/15/23
Prevention/Tx
fluticasone propionate 115 1 puff inhalation R BID COPD 09/15/23
mcg-salmeterol 21 mcg/actuation
HFA inhaler
metoprolol succinate 50 mg 50 mg PO DAILY Blood Pressure 09/15/23
tablet,extended release 24 hr
tiotropium bromide 1.25 1 puff inhalation R DAILY COPD 09/15/23
mcg/actuation mist for inhalation
(Spiriva Respimat)
Review of Systems
Vital Signs
Temp Pulse Resp BP Pulse Ox
97.9 F 100 16 151/94 100
09/22/23 10:43 09/22/23 10:43 09/22/23 10:43 09/22/23 10:43 09/22/23 10:43
Physical Exam
Results
WBC 3.1 10^3/uL (4.8-10.8) L 09/20/23 04:03
Hgb 9.3 g/dL (13.0-18.0) L 09/20/23 04:03
Hct 29.0 % (39.0-52.0) L 09/20/23 04:03
MCV 88.4 fL (80.0-94.0) 09/20/23 04:03
Plt Count 157 10^3/uL (130-400) 09/20/23 04:03
Absolute Neuts (auto) 3.9 10^3/uL (1.4-6.5) 09/19/23 04:52
Sodium 143 mmol/L (135-145) 09/22/23 07:02
Potassium 3.4 mmol/L (3.5-5.1) L 09/22/23 07:02
Chloride 106 mmol/L (98-107) 09/22/23 07:02
Carbon Dioxide 32 mmol/L (22-30) H 09/22/23 07:02
BUN 16 mg/dl (9-20) 09/22/23 07:02
Creatinine 0.6 mg/dL (0.7-1.3) L 09/22/23 07:02
Calcium 7.8 mg/dl (8.4-10.2) L 09/22/23 07:02
Total Bilirubin 0.7 mg/dl (0.2-1.3) 09/17/23 04:10
AST 17 U/L (17-59) 09/17/23 04:10
ALT 12 U/L (0-50) 09/17/23 04:10
Alkaline Phosphatase 110 U/L (38-126) 09/17/23 04:10
Diagnostic Image Results:
Prior GI Procedures:
EGD:
Colonoscopy:
Assessment / Plan
-
Patient is a 77-year-old male with history of COPD on home oxygen, MARYAM lobectomy for lung cancer in 2010, laryngeal cancer status post resection of SqCC VC polyp in 2011, bio AVR in 2006 admitted with LLL pneumonia suspected be from aspiration.
Patient had speech eval and failed swallow evaluation. We have been consulted for PEG placement.
Impression / Rec:
1. Aspiration PNA / failed swallow eval - Requested for PEG placement given his pneumonia and failed to swallow. Patient is is admitted with left-sided pneumonia, with large infiltrate on left in setting of severe COPD on home oxygen 2 to 3 L with
minimal physical activity tolerance. Patient is also other significant comorbidities. Previously had GOC discussion and family decided to proceed with PEG. Had enrique discussion with patient and family regarding significant intraprocedural risk
given his underlying respiratory status (severe COPD, oxygen dependent) and current pneumonia with large left sided infiltrate. He may not tolerate sedation or procedures of. After discussion, decision was made to tentatively proceed with PEG
procedure. Prior to sedation and will have anesthesia evaluate the patient for suitability of anesthesia. Informed the patient and his that there will be a low threshold to abort the procedure if any respiratory decompensation is noted.
Expressed understanding. Will place DHT for the time being.
Total Time Spent with Patient (in minutes): 55
-
-
Thank you for consultation and allowing me to participate in the patient's care. Please call the customer acquisition specialist GI physician during the after hours with any questions or concerns.
--- NOTE | 2023-09-22 12:54 | W.PN.PUL3 ---
Today's Communication / Plan
-
O2
Atb
Incentive spirometer
Assessment
-
Assessment:
Mr Bhanu García is a 77/M adm 09-15 with 4 d h/o dyspnea and productive cough. 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 Adm CTA
showed LLL pneumonia, severe emphysema and no PE. At ER given vanco/zosyn, changed on adm to doxycycline/metronidazole/ceftriaxone. Sputum cx positive for pansensitive Ps aerug, atbs changed to zosyn on 09-17. VSE 09-17 showed aspiration of all
consistencies of solids and liquids and strict NPO was recommended. Pulm consulted 09-18 for interim increase in dyspnea and O2 requirement
Impression:
Acute on chronic respiratory failure
CAP, large size L infiltrate: tan-S Ps aerug
Functional oral stage and severe pharyngeal stage dysphagia: acute on chronic
Resolved leukocytosis
Elevated troponins
Elevated BNP
COVID/flu negative
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
Very severe COPD on O2 2-3L, fluticasone/salmeterol, albuterol, spiriva
MARYAM lobectomy for lung cancer in 2010
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
Bio AVR 2006, sternotomy
Prostate cancer s/o XRT
Lumbar spine surgery
Nephrolithiasis
HTN
HLD
Cachexia
DNR
Plan:
Keep MAP>65 and SpO2 >90%
Acapella valve, encouraged to embrace regimen
Asp precs
Continue zosyn for Ps aerug pneumonia (tan-S)
Negative blood cxs
Duration of treatment at least 7-10 d
Can convert to high dose levofloxacin or ciprofloxacin once more stable
CXR 09-18 with large L sided infiltrate. No infiltrate at R field
Continue spiriva and advair
Continue levalbuterol tid and prn
Severe dysphagia VSE 09-17, suspected acute on chronic: speech rec strict NPO for now
Wt loss, cachexia
Continue new onset enteral feedings by DHT
Retested VSE 09-21:severe pharyngeal stage
DVT prophylaxis
DNR status, overall prognosis guarded
Pulmonary to continue to follow.
(Patient seen and examined on 09/22/2023).
Diagnostic tests:
CXR 09-22-2023: The tip of the feeding tube is in the stomach
CXR 09-18-23: c/w October 2013. Chronic L field volume loss, sternotomy wiring. New large L sided infiltrate with sparing. DHT tip in high position. R field with no infiltrate
Chest CTA 09-15-23: severe emphysema. Large L sided infiltrate
Subjective Data
-
Date of Service:
Date of Service: September 22, 2023
Chief Complaint: Pulmonary Follow Up
Subjective:
Seen this afternoon. Resting in NAD on 4L/min. No overnight events reported.
Review of Systems
General: Other (neg unless mentioned above)
Objective Data
Data Reviewed
Vital Signs / I&O / Oxygen:
Vital Signs
Temp Pulse Resp BP Pulse Ox
97.9 F 100 16 151/94 100
09/22/23 10:43 09/22/23 10:43 09/22/23 10:43 09/22/23 10:43 09/22/23 10:43
Intake and Output
09/21/23 09/22/23 09/23/23
06:59 06:59 06:59
Intake Total 200 / 200 0 / 0
Output Total 1050 / 1050 1150 / 1150
Balance -850 / -850 -1150 / -1150
SaO2 100
Nasal Cannula flow liters per 4
minute
Physical Exam
General: Respiratory Distress (improved) and Other (cachectic)
HEENT: Normocephalic and Anicteric
Cardiovascular: S1-S2, Murmur (n), JVD (n) and Peripheral Edema (n)
Respiratory: Wheeze (n), Crackles (L), Accessory Resp Muscle Use and Stridor (n)
GI: Soft, Non Distended and Non Tender
Neurology: Awake and No Motor Deficits
Skin: Warm and Dry
Labs/Micro/Reports
Lab Data
09/20/23 04:03
09/22/23 07:02
Microbiology
09/15/23 09:34 Blood/Venous Blood Culture - Final
No Growth - Final Report
09/15/23 10:19 Blood/Venous Blood Culture - Final
No Growth - Final Report
[2023-09-22] MEDS: KCL 1020 MEQ IV (13:15)
--- NOTE | 2023-09-22 13:38 | W.PN.HOSP.TC ---
Today's Communication/Plan
-
continue IV Zosyn
mucus clearing measures
plan for PEG on Sunday; patient and family updated he may not tolerate procedure - Pulm to weigh in
Assessment / Plan
Assessment / Plan
Mr. 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
with 4 days shortness of breath, productive cough. He moved here from [place], [place] [address] PE
IMPRESSION:
Extensive left lower lobe pneumonia
Severe emphysematous changes
There is no pulmonary embolism
TTE
�CONCLUSIONS
�Technically fair study.
�Left ventricle is small in size. Normal left ventricular systolic function.
�Left ventricular ejection fraction is 55%. Normal regional wall motion. Mild
�concentric left ventricular hypertrophy.
�Mild mitral regurgitation.
�Normally functioning bioAVR - Peak gradient 10mmHg/Mean gradient 6mmHg - no
�aortic regurgitation is seen.
�Mild tricuspid regurgitation. Estimated pulmonary artery pressure of 35-40
�mmHg.
�No prior echo for comparison.
�
# Left lower lobe pneumonia
Pseudomonas Pneumonia
Sepsis 2/2 PNA
Acute on chronic respiratory insufficiency
-Day 6 IV Zosyn 4.5 q 6
-CT PE study with extensive left lower lobe pneumonia no PE.�
- leukocytosis resolved
-09/18: increased tachypnea/tachycardia - repeat CXR portable with worsening PNA, likely relative to anxiety
-appreciate pulmonary
-continue acapella, scheduled robitussin
# Severe emphysema on albuterol and fluticasone and Spiriva inhalers as outpatient
�Chronic respiratory failure on 2 to 3 L of oxygen at home
-Pulm consult appreciated
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
Recurrent Aspiration
-likely 2/2 hx laryngeal CA and radiation
-VSE with aspiration on all foods and liquids
-discussion of PEG had on 09/21. Discussed patient's frailty and chance he may never safely eat solids again. We discussed options of hospice versus PEG. He discussed with family last night and decision made for PEG; GI consulted
-updated Pulm on decision on PEG
-dobhoff back in today with reinitiation of TF
# Lactic acidosis-Resolved
# Hypokalemia-replace
#Drop in hg 2/2 dilution
#iron studies show KYM
-patient now okay with lower dose aspirin
-will need outpatient work-up for KYM
-Hg relatively stable
# Mildly elevated troponin-likely secondary to respiratory distress-follow
TTE without WMA
# Urinary frequency
-UA without e/o infection
#Mild Thrombocytopenia-Watch
# History of prostate cancer with radiation in the past
# History of SCC lung� with left upper lobectomy in 2000
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
He cannot recall the details, but states he had laryngeal cancer and received 28 courses of radiation therapy per Dr. Sidhu in September of 2012.
# 45 pound weight loss
# Hypertension-on Coreg
# Hypomagnesemia-replace
# Prolonged QTc-replace magnesium and follow on telemetry
# Hyperlipidemia-on simvastatin
# At least patient has moderate protein calorie malnutrition
Nutrition consultation
Ensure
# History of noncritical coronary disease.
# History of aortic valve replacement in 2006-bioprosthetic aortic valve
# History of lumbar disc surgery
# Nephrolithiasis
# Hypoalbuminemia
# DVT prophylaxis-Lovenox
# DNR status per discussion with patient and daughter at bedside
Anticipated Discharge: > 48 hours
Subjective/Interval History
-
Date of Service: September 22, 2023
patient appears fatigued today
seen with family at bedside
Objective Data
-
Labs:
Laboratory Results
09/22/23
07:02
Sodium 143
Potassium 3.4 L
Chloride 106
Carbon Dioxide 32 H
BUN 16
Creatinine 0.6 L
Glucose 86
Calcium 7.8 L
Vital Signs:
Vital Signs
Temp Pulse Resp BP Pulse Ox
97.9 F 100 16 151/94 100
09/22/23 10:43 09/22/23 10:43 09/22/23 10:43 09/22/23 10:43 09/22/23 10:43
I&O
09/21/23 09/22/23 09/23/23
06:59 06:59 06:59
Intake Total 200 / 200 0 / 0
Output Total 1050 / 1050 1150 / 1150
Balance -850 / -850 -1150 / -1150
Review of Systems
-
History Source: Patient
All other systems: Reviewed and negative
Physical Exam
-
General: Other (cachectic appearing, chronically ill appearing, tachypneic )
HEENT: PERRLA
Respiratory: Decreased Breath Sounds; Negative Wheezes
Cardiac: S1/S2 and Tachycardic
GI: Soft, Nontender and Nondistended
Musculoskeletal: No Edema
Skin: Warm and Dry; Negative Rash
Neuro: Awake and Alert
Psych: Anxious
Data Reviewed
-
Diagnostic Radiology: Report Reviewed by me
Labs: Labs Reviewed by me
[2023-09-22 16:14] VITALS: BP 150/94
[2023-09-22] MEDS: LOVENOX 40 MG SC (17:22)
[2023-09-22] MEDS: ROBITUSSIN 100 MG TUBE ×2 (17:22→21:51)
[2023-09-22] MEDS: SEROQUEL 12.5 MG TUBE (17:22)
[2023-09-22 17:54] LABS: Glucose - Point of Care 120 mg/dl (70-99)
[2023-09-22 19:10] VITALS: BP 147/78
[2023-09-22] MEDS: LOPRESSOR 25 MG TUBE (19:55)
[2023-09-22 23:08] VITALS: BP 160/97
[2023-09-23 00:10] LABS: Glucose - Point of Care 170 mg/dl (70-99)
[2023-09-23] MEDS: NOVOLOG FLEXPEN-LOW RESISTANCE 1 UNITS SC ×2 (00:16→18:22)
[2023-09-23 03:02] VITALS: BP 158/84
[2023-09-23] MEDS: ZOSYN 100 IV ×4 (04:10→23:11)
[2023-09-23 05:47] LABS: Glucose - Point of Care 206 mg/dl (70-99)
[2023-09-23] MEDS: NOVOLOG FLEXPEN-LOW RESISTANCE 2 UNITS SC (05:50)
[2023-09-23 06:00] VITALS: BMI 16.7
[2023-09-23 07:40] VITALS: BP 137/73
[2023-09-23] MEDS: SPIRIVA RESPIMAT 2.5 MCG 2 PUFF INH (07:56)
[2023-09-23] MEDS: XOPENEX 1.25 MG INHALANT SOLUTION INH ×3 (07:56→20:32)
[2023-09-23] MEDS: ADVAIR HFA 115/21 MCG INHALER 1 PUFF INH ×2 (07:56→20:32)
[2023-09-23 09:19] LABS: Blood Urea Nitrogen 14 mg/dl (9-20); Calcium 7.7 mg/dl (8.4-10.2); Carbon Dioxide 36 mmol/L (22-30); Chloride 104 mmol/L (98-107); Estimated Creatinine Clearance 72 ml/min; Glucose 176 mg/dl (70-99); Magnesium 1.8 mg/dl (1.6-2.3); Potassium 3.4 mmol/L (3.5-5.1); Sodium 141 mmol/L (135-145); eGFR > 60.00
[2023-09-23] MEDS: FEOSOL 325 MG TUBE (09:28)
[2023-09-23] MEDS: LOW STRENGTH ASPIRIN 81 MG TUBE (09:29)
[2023-09-23] MEDS: LOPRESSOR 25 MG TUBE ×2 (09:29→20:23)
[2023-09-23] MEDS: LIPITOR 10 MG TUBE (09:29)
[2023-09-23] MEDS: ROBITUSSIN 100 MG TUBE (09:30)
[2023-09-23] MEDS: PREVACID 15 MG TUBE (09:30)
--- NOTE | 2023-09-23 09:55 | W.PN.HOSP.TC ---
Today's Communication/Plan
-
NPO after MN for PEG tomorrow
appreciate consultants
IV Zosyn
Assessment / Plan
Assessment / Plan
Mr. 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
with 4 days shortness of breath, productive cough, admitted for extensive left lower lobe pneumonia. He moved here from [place], [place] [address] PE
IMPRESSION:
Extensive left lower lobe pneumonia
Severe emphysematous changes
There is no pulmonary embolism
TTE
�CONCLUSIONS
�Technically fair study.
�Left ventricle is small in size. Normal left ventricular systolic function.
�Left ventricular ejection fraction is 55%. Normal regional wall motion. Mild
�concentric left ventricular hypertrophy.
�Mild mitral regurgitation.
�Normally functioning bioAVR - Peak gradient 10mmHg/Mean gradient 6mmHg - no
�aortic regurgitation is seen.
�Mild tricuspid regurgitation. Estimated pulmonary artery pressure of 35-40
�mmHg.
�No prior echo for comparison.
�
Left lower lobe pneumonia
Pseudomonas Pneumonia
Sepsis 2/2 PNA
Acute on chronic respiratory insufficiency
-CT PE study with extensive left lower lobe pneumonia no PE.
-Day 7 IV Zosyn 4.5 q 6
- leukocytosis resolved
-09/18: increased tachypnea/tachycardia - repeat CXR portable with worsening PNA, likely related to anxiety
-appreciate pulmonary
-continue acapella, scheduled robitussin
Severe emphysema on albuterol and fluticasone and Spiriva inhalers as outpatient
�Chronic respiratory failure on 2 to 3 L of oxygen at home
-Pulm consult appreciated
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
Recurrent Aspiration
-likely 2/2 hx laryngeal CA and radiation
-VSE with aspiration on all foods and liquids
-discussion of PEG had on 09/21. Discussed patient's frailty and chance he may never safely eat solids again. We discussed options of hospice versus PEG. He discussed with familylater and decision made for PEG; GI consult appreciated.
-updated Pulm on decision on PEG
-dobhoff back in 09/22 with reinitiation of TF
# Lactic acidosis-Resolved
# Hypokalemia-replace
#Drop in hg 2/2 dilution
#iron studies show KYM
-patient now okay with lower dose aspirin
-will need outpatient work-up for KYM
-Hg relatively stable
# Mildly elevated troponin-likely secondary to respiratory distress-follow
TTE without WMA
# Urinary frequency
-UA without e/o infection
#Mild Thrombocytopenia-Watch
# History of prostate cancer with radiation in the past
# History of SCC lung� with left upper lobectomy in 2000
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
He cannot recall the details, but states he had laryngeal cancer and received 28 courses of radiation therapy per Dr. Sidhu in September of 2012.
# 45 pound weight loss
# Hypertension-on Coreg
# Hypomagnesemia-replace
# Prolonged QTc-replace magnesium and follow on telemetry
# Hyperlipidemia-on simvastatin
# At least patient has moderate protein calorie malnutrition
Nutrition consultation
Ensure
# History of noncritical coronary disease.
# History of aortic valve replacement in 2006-bioprosthetic aortic valve
# History of lumbar disc surgery
# Nephrolithiasis
# Hypoalbuminemia
# DVT prophylaxis-Lovenox
# DNR status per discussion with patient and daughter at bedside
Anticipated Discharge: > 48 hours
Subjective/Interval History
-
Date of Service: September 23, 2023
patient feeling slightly improved today
seen with at bedside
Objective Data
-
Labs:
Laboratory Results
09/23/23
08:38
Sodium 141
Potassium 3.4 L
Chloride 104
Carbon Dioxide 36 H
BUN 14
Creatinine 0.6 L
Glucose 176 H
Calcium 7.7 L
Vital Signs:
Vital Signs
Temp Pulse Resp BP Pulse Ox
97.4 F 83 18 137/73 100
09/23/23 07:40 09/23/23 09:29 09/23/23 08:00 09/23/23 09:29 09/23/23 08:00
I&O
09/22/23 09/23/23 09/24/23
06:59 06:59 06:59
Intake Total 0 / 0 1525 / 1525
Output Total 1150 / 1150 1125 / 1125
Balance -1150 / -1150 400 / 400
Review of Systems
-
History Source: Patient
All other systems: Reviewed and negative
Physical Exam
-
General: Other (cachectic appearing, chronically ill appearing, less tachypneic this morning)
HEENT: PERRLA
Respiratory: Decreased Breath Sounds; Negative Wheezes
Cardiac: S1/S2 and Tachycardic
GI: Soft, Nontender and Nondistended
Musculoskeletal: No Edema
Skin: Warm and Dry; Negative Rash
Neuro: Awake and Alert
Psych: Anxious
Data Reviewed
-
Diagnostic Radiology: Report Reviewed by me
Labs: Labs Reviewed by me
[2023-09-23] MEDS: CHLORASEPTIC/SORE THROAT SPRAY 1 SPRAY PO (10:04)
[2023-09-23] MEDS: KCL ELIXIR 40 MEQ TUBE (10:07)
[2023-09-23 11:40] VITALS: BP 108/72
--- NOTE | 2023-09-23 12:15 | W.PN.PUL3 ---
Today's Communication / Plan
-
O2
Atb
Incentive spirometer
PEG tomorrow
Assessment
-
Assessment:
Mr Bhanu García is a 77/M adm 09-15 with 4 d h/o dyspnea and productive cough. 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 Adm CTA
showed LLL pneumonia, severe emphysema and no PE. At ER given vanco/zosyn, changed on adm to doxycycline/metronidazole/ceftriaxone. Sputum cx positive for pansensitive Ps aerug, atbs changed to zosyn on 09-17. VSE 09-17 showed aspiration of all
consistencies of solids and liquids and strict NPO was recommended. Pulm consulted 09-18 for interim increase in dyspnea and O2 requirement
Impression:
Acute on chronic respiratory failure
CAP, large size L infiltrate: tan-S Ps aerug
Functional oral stage and severe pharyngeal stage dysphagia: acute on chronic
Resolved leukocytosis
Elevated troponins
Elevated BNP
COVID/flu negative
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
Very severe COPD on O2 2-3L, fluticasone/salmeterol, albuterol, spiriva
MARYAM lobectomy for lung cancer in 2010
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
Bio AVR 2006, sternotomy
Prostate cancer s/p XRT
Lumbar spine surgery
Nephrolithiasis
HTN
HLD
Cachexia
DNR
Plan:
Keep MAP>65 and SpO2 >90%
Acapella valve, encouraged to embrace regimen
Asp precs --> plan for PEG tomorrow; keep NPO p MN
Continue zosyn for Ps aerug pneumonia (tan-S)
Negative blood cxs
Duration of treatment at least 7-10 d
Can convert to high dose levofloxacin or ciprofloxacin once more stable
CXR 09-18 with large L sided infiltrate. No infiltrate at R field
Continue spiriva and advair
Continue levalbuterol tid and prn
Severe dysphagia VSE 09-17, suspected acute on chronic: speech rec strict NPO for now
Wt loss, cachexia
Continue new onset enteral feedings by DHT --> PEG planned for tomorrow
Retested VSE 09-21:severe pharyngeal stage
DVT prophylaxis
DNR status, overall prognosis guarded
Pulmonary to continue to follow.
(Patient seen and examined on 09/23/2023).
Diagnostic tests:
CXR 09-22-2023: The tip of the feeding tube is in the stomach
CXR 09-18-23: c/w October 2013. Chronic L field volume loss, sternotomy wiring. New large L sided infiltrate with sparing. DHT tip in high position. R field with no infiltrate
Chest CTA 09-15-23: severe emphysema. Large L sided infiltrate
Subjective Data
-
Date of Service:
Date of Service: September 23, 2023
Chief Complaint: Pulmonary Follow Up
Subjective:
Seen this afternoon. at bedside. He is pending G-tube placement tomorrow. NGT in place currently. He is on 3L/min NC. Pt continues to cough and has wet sounding phlegm production during the day. He endorses poor sleep and would like
something to help with that. He denies CP, AHUMADA, abd pain /f/c.
Review of Systems
General: Other (neg unless mentioned above)
Objective Data
Data Reviewed
Vital Signs / I&O / Oxygen:
Vital Signs
Temp Pulse Resp BP Pulse Ox
98.2 F 83 16 108/72 96
09/23/23 11:40 09/23/23 11:40 09/23/23 11:40 09/23/23 11:40 09/23/23 11:40
Intake and Output
09/22/23 09/23/23 09/24/23
06:59 06:59 06:59
Intake Total 0 / 0 1525 / 1525
Output Total 1150 / 1150 1125 / 1125
Balance -1150 / -1150 400 / 400
SaO2 96
Nasal Cannula flow liters per 4
minute
Physical Exam
General: Respiratory Distress (improved) and Other (cachectic)
HEENT: Normocephalic and Anicteric
Cardiovascular: S1-S2, Murmur (n), JVD (n) and Peripheral Edema (n)
Respiratory: Wheeze (negative), Crackles (negative), Rhonchi (left hemithorax), Accessory Resp Muscle Use (negative), Stridor (n) and Other (Reduced breath sounds b/l)
GI: Soft, Non Distended and Non Tender
Neurology: Awake and No Motor Deficits
Skin: Warm and Dry
Labs/Micro/Reports
Lab Data
09/20/23 04:03
09/23/23 08:38
Microbiology
09/15/23 09:34 Blood/Venous Blood Culture - Final
No Growth - Final Report
09/15/23 10:19 Blood/Venous Blood Culture - Final
No Growth - Final Report
[2023-09-23] MEDS: ROBITUSSIN 200 MG TUBE ×3 (12:29→23:11)
[2023-09-23] MEDS: NOVOLOG FLEXPEN-LOW RESISTANCE SC (12:30)
[2023-09-23 12:31] LABS: Glucose - Point of Care 134 mg/dl (70-99)
[2023-09-23 15:30] VITALS: BP 126/73
[2023-09-23] MEDS: LOVENOX 40 MG SC (17:17)
[2023-09-23] MEDS: SEROQUEL 12.5 MG TUBE ×2 (17:17→20:24)
[2023-09-23 18:18] LABS: Glucose - Point of Care 168 mg/dl (70-99)
[2023-09-23 20:25] VITALS: BP 143/83
[2023-09-23 22:45] VITALS: BP 168/95
[2023-09-23 23:33] LABS: Glucose - Point of Care 179 mg/dl (70-99)
[2023-09-24] VITALS (12 sets, daily range): BP systolic 20–155; BP diastolic 55–93; BMI 16.5
[2023-09-24] MEDS: NOVOLOG FLEXPEN-LOW RESISTANCE SC ×4 (00:11→18:18)
[2023-09-24] MEDS: ATIVAN 0.5 MG PO (02:15)
[2023-09-24] MEDS: ZOSYN 100 IV ×4 (04:15→21:39)
[2023-09-24 05:14] LABS: % Basophils 0.4 % (0-2); % Eosinophils 1.1 % (0-6); % Immature Granulocytes 1.1 % (0-0.5); % Lymphocytes 2.2 % (20.5-51.1); % Monocytes 4.9 % (1.7-9.3); % Neutrophils 90.3 % (42.2-75.2); Absolute Basophils 0.1 10^3/uL (0-0.2); Absolute Eosinophils 0.2 10^3/uL (0-0.7); Absolute Immature Granulocytes 0.2 10^3/uL (0-0.05); Absolute Lymphocytes 0.3 10^3/uL (1.2-3.4); Absolute Monocytes 0.6 10^3/uL (0.1-0.6); Absolute Neutrophils 11.9 10^3/uL (1.4-6.5); Hematocrit 28.2 % (39.0-52.0); Mean Corp Hgb Conc. 31.9 g/dL (33.0-37.0); Mean Corpuscular Hgb 28.5 pg (27.0-31.0); Mean Corpuscular Volume 89.2 fL (80.0-94.0); Mean Platelet Volume 12.1 fL (7.4-10.4); Nucleated Red Blood Cells % 0 % (-); Platelet Count 234 10^3/uL (130-400); Red Blood Cell Count 3.16 10^6/uL (4.70-6.10); Red Cell Dist. Width 13.7 % (11.5-14.5); White Blood Cell Count 13.1 10^3/uL (4.8-10.8)
--- NOTE | 2023-09-24 05:22 | PTCARENOTE ---
Pt confused and agitated throughout this shift. Pt pulled IV and Dobhoff out. Will add Medsitter for pt's safety.
[2023-09-24 05:43] LABS: Glucose - Point of Care 142 mg/dl (70-99)
[2023-09-24 05:46] LABS: Blood Urea Nitrogen 12 mg/dl (9-20); Calcium 7.6 mg/dl (8.4-10.2); Carbon Dioxide 34 mmol/L (22-30); Chloride 103 mmol/L (98-107); Estimated Creatinine Clearance 72 ml/min; Glucose 119 mg/dl (70-99); Magnesium 1.8 mg/dl (1.6-2.3); Potassium 3.4 mmol/L (3.5-5.1); Sodium 140 mmol/L (135-145); eGFR > 60.00
[2023-09-24] MEDS: FEOSOL TUBE (07:19)
[2023-09-24] MEDS: LIPITOR TUBE (07:19)
[2023-09-24] MEDS: ROBITUSSIN TUBE ×2 (07:20→12:57)
[2023-09-24] MEDS: LOPRESSOR TUBE (07:20)
[2023-09-24] MEDS: PREVACID TUBE (07:20)
[2023-09-24] MEDS: LOW STRENGTH ASPIRIN TUBE (07:20)
[2023-09-24] MEDS: SPIRIVA RESPIMAT 2.5 MCG 2 PUFF INH (07:59)
[2023-09-24] MEDS: XOPENEX 1.25 MG INHALANT SOLUTION INH ×3 (07:59→20:13)
[2023-09-24] MEDS: ADVAIR HFA 115/21 MCG INHALER 1 PUFF INH ×2 (07:59→20:13)
--- NOTE | 2023-09-24 08:08 | W.PN.PUL3 ---
Today's Communication / Plan
-
O2
Atb
Incentive spirometer
Spiriva and Advair
PEG today
Assessment
-
Assessment:
Mr Bhanu García is a 77/M adm 09-15 with 4 d h/o dyspnea and productive cough. 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 Adm CTA
showed LLL pneumonia, severe emphysema and no PE. At ER given vanco/zosyn, changed on adm to doxycycline/metronidazole/ceftriaxone. Sputum cx positive for pansensitive Ps aerug, atbs changed to zosyn on 09-17. VSE 09-17 showed aspiration of all
consistencies of solids and liquids and strict NPO was recommended. Pulm consulted 09-18 for interim increase in dyspnea and O2 requirement
Impression:
Acute on chronic respiratory failure
CAP, large size L infiltrate: tan-S Ps aerug
Functional oral stage and severe pharyngeal stage dysphagia: acute on chronic
Leukocytosis
Elevated troponins - peaked at 0.071 on 09/15/2023
Elevated BNP
COVID/flu negative
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
Very severe COPD on O2 2-3L, fluticasone/salmeterol, albuterol, spiriva
MARYAM lobectomy for lung cancer in 2010
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
Bio AVR 2006, sternotomy
Prostate cancer s/p XRT
Lumbar spine surgery
Nephrolithiasis
HTN
HLD
Cachexia
DNR
Plan:
Keep MAP>65 and SpO2 >90%
Acapella valve, encouraged to embrace regimen
Asp precs --> plan for PEG today
Continue zosyn for Ps aerug pneumonia (tan-S)
Negative blood cxs
Duration of treatment at least 7-10 d
Can convert to high dose levofloxacin or ciprofloxacin once more stable
CXR 09-18 with large L sided infiltrate. No infiltrate at R field
Continue spiriva and advair
Continue levalbuterol tid and prn
Severe dysphagia VSE 09-17, suspected acute on chronic: speech rec strict NPO for now
Wt loss, cachexia
Continue new onset enteral feedings by DHT --> PEG planned for today
Retested VSE 09-21:severe pharyngeal stage
DVT prophylaxis
DNR status, overall prognosis guarded
Pulmonary to continue to follow.
(Patient seen and evaluated on 09/24/2023)
Diagnostic tests:
CXR 09-22-2023: The tip of the feeding tube is in the stomach
CXR 09-18-23: c/w October 2013. Chronic L field volume loss, sternotomy wiring. New large L sided infiltrate with sparing. DHT tip in high position. R field with no infiltrate
Chest CTA 09-15-23: severe emphysema. Large L sided infiltrate
Subjective Data
-
Date of Service:
Date of Service: September 24, 2023
Chief Complaint: Pulmonary Follow Up
Subjective:
Patient seen today at bedside. Remains on 3 L/min nasal cannula saturating 95%. He was in NAD, resting in bed.
Review of Systems
General: Other (Negative unless mentioned above)
Objective Data
Data Reviewed
Vital Signs / I&O / Oxygen:
Vital Signs
Temp Pulse Resp BP Pulse Ox
97.8 F 98 38 140/55 98
09/24/23 11:47 09/24/23 11:44 09/24/23 11:44 09/24/23 11:44 09/24/23 11:47
Intake and Output
09/23/23 09/24/23 09/25/23
06:59 06:59 06:59
Intake Total 1525 / 1525 1625 / 1625
Output Total 1125 / 1125 1245 / 1245
Balance 400 / 400 380 / 380
SaO2 98
Nasal Cannula flow liters per 2
minute
Physical Exam
General: Respiratory Distress (neg), Comfortable and Other (cachectic)
HEENT: Normocephalic and Anicteric
Cardiovascular: S1-S2, Murmur (n), JVD (n) and Peripheral Edema (n)
Respiratory: Wheeze (negative), Crackles (negative), Rhonchi (left hemithorax), Accessory Resp Muscle Use (negative), Stridor (n) and Other (Reduced breath sounds b/l)
GI: Soft, Non Distended and Non Tender
Neurology: Awake and No Motor Deficits
Skin: Warm and Dry
Labs/Micro/Reports
Lab Data
09/24/23 04:41
09/24/23 04:41
[2023-09-24] MEDS: KCL 260 MEQ IV (09:52)
--- NOTE | 2023-09-24 10:07 | W.PN.HOSP.TC ---
Today's Communication/Plan
-
Trial of PEG today per pt wishes.
Assessment / Plan
Assessment / Plan
Mr. 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
with 4 days shortness of breath, productive cough, admitted for extensive left lower lobe pneumonia. He moved here from [place], [place] 5 days ago
[address] PEExtensive left lower lobe pneumonia.Severe emphysematous changes.There is no pulmonary embolism
TTE-Left ventricle is small in size. Normal left ventricular systolic function.�Left ventricular ejection fraction is 55%. Normal regional wall motion. Mild concentric left ventricular hypertrophy.Mild mitral regurgitation.Normally functioning
bioAVR - Peak gradient 10mmHg/Mean gradient 6mmHg - no�aortic regurgitation is seen.Mild tricuspid regurgitation. Estimated pulmonary artery pressure of 35-40 mm Hg.No prior echo for comparison.
CVS: S1-S2 normal
Chest:diminished BS
Abdomen: Soft, NT , Bowel sounds present
Extremities: No edema
�
#Left lower lobe pneumonia
Pseudomonas Pneumonia
Sepsis 2/2 PNA
Acute on chronic respiratory insufficiency
CT PE study with extensive left lower lobe pneumonia no PE.
Day 7 IV Zosyn 4.5 q 6 , can stop after today
Leukocytosis resolved
09/18: increased tachypnea/tachycardia - repeat CXR portable with worsening PNA, likely related to anxiety
Appreciate pulmonary
Continue acapella, scheduled Robitussin
#Severe emphysema on albuterol and fluticasone and Spiriva inhalers as outpatient
�Chronic respiratory failure on 2 to 3 L of oxygen at home
Continue [employer] inhalers, changed albuterol to levalbuterol given tachycardia
#Recurrent Aspiration
-Likely 2/2 hx laryngeal CA and radiation
-VSE with aspiration on all foods and liquids
-Discussion of PEG had on 09/21. Discussed patient's frailty and chance he may never safely eat solids again. We discussed options of hospice versus PEG.
-Pt back and forth with family discussion, wants a PEG tube now. As of this morning
-Updated Pulm on decision on PEG
-Dobhoff back in 09/22 with reinitiation of TF -Pulled out last night
# Lactic acidosis-Resolved
# Hypokalemia-replace
#Drop in hg 2/2 dilution
#Iron studies show KYM
-Patient now okay with lower dose aspirin
-will need outpatient work-up for KYM
-Hg relatively stable
# Mildly elevated troponin-likely secondary to respiratory distress-follow
TTE without WMA
# Urinary frequency
-UA without e/o infection
#Mild Thrombocytopenia-resolved
# History of prostate cancer with radiation in the past
# History of SCC lung� with left upper lobectomy in 2000
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
He cannot recall the details, but states he had laryngeal cancer and received 28 courses of radiation therapy per Dr. Sidhu in September of 2012.
# 45 pound weight loss
# Hypertension-on Coreg
# Hypomagnesemia-replace
# Prolonged QTc
# Hyperlipidemia-on simvastatin
# At least patient has moderate protein calorie malnutrition
# History of noncritical coronary disease.
# History of aortic valve replacement in 2006-bioprosthetic aortic valve
# History of lumbar disc surgery
# Nephrolithiasis
# Hypoalbuminemia
# DVT prophylaxis-Lovenox
# DNR status per discussion with patient and daughter at bedside
Discussed with nursing. Patient pulled out Dobbhoff tube last night.
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 Patient's son-in-law and daughter convinced the patient to undergo a PEG
tube.
This morning he states that he wants to give it a try. We did discuss that even if he has a PEG tube he is still at risk for aspiration. He feels that he has to try to be on for his as long as he can.
We discussed about his risks for anesthesia and that anesthesia would evaluate him while down there to see if he can safely undergo PEG placement.
Anticipated Discharge: > 48 hours
Subjective/Interval History
-
Date of Service: September 24, 2023
Objective Data
-
Labs:
Laboratory Results
09/24/23
04:41
WBC 13.1 H
Hgb 9.0 L
Hct 28.2 L
Plt Count 234 D
Sodium 140
Potassium 3.4 L
Chloride 103
Carbon Dioxide 34 H
BUN 12
Creatinine 0.5 L
Glucose 119 H
Calcium 7.6 L
Vital Signs:
Vital Signs
Temp Pulse Resp BP Pulse Ox
97.7 F 102 18 155/93 94
09/24/23 07:16 09/24/23 08:07 09/24/23 08:07 09/24/23 07:16 09/24/23 08:07
I&O
09/23/23 09/24/23 09/25/23
06:59 06:59 06:59
Intake Total 1525 / 1525 1625 / 1625
Output Total 1125 / 1125 1245 / 1245
Balance 400 / 400 380 / 380
--- NOTE | 2023-09-24 11:05 | OR.RPT ---
Operative Report
Operative Report
Patient Name: Bhanu García
: 1945
Date of Operation: 09/24/2023
Preoperative Diagnosis: Need for feeding access
Postoperative Diagnosis: Same
Procedure(s):
Percutaneous endoscopic gastrostomy
Surgeon(s):
Dr. Douglas
Endoscopist(s):
Dr. Scherer
Anesthesia: General
Estimated Blood Loss: 1 cc
Urine Output: None
Drains/Lines/Implants: 20 Greek PEG tube
Specimens: None
Indication/Findings at the time of surgery:
Please see GI notes.
Details of the operation:
After inducing general anesthesia and placement of a mouth guard, an upper endoscopy was performed by the manager plumbing (see their note for further details) an appropriate site for the PEG tube was identified near the left costal margin. Our
initial first 2 passes with a local needle were unsuccessful but third pass which was made more inferior ands was confirmed by good one-to-one, transillumination as well as a safe track technique was successful. The overlying skin was infiltrated
with lidocaine and a small stab incision was made. The introducer needle was inserted through the stab incision, abdominal wall and into the stomach. This required 1 pass. The blue guidewire was inserted through the sheath and was captured by an
endoscopic snare. A 20 Greek PEG tube was then advanced along the tract. The external bumper and tube feeding attachment were placed. The tube was noted to be 3 cm at the skin. There was minimal blood loss. The patient returned to the recovery
room in stable condition. Sponge and instrument counts were correct. No specimen sent to pathology from our portion of the procedure.
I was the attending physician and performed the procedure with no assistance. I was present for all portions of the case
Mike Douglas MD
[2023-09-24 11:31] LABS: Glucose - Point of Care 137 mg/dl (70-99)
--- NOTE | 2023-09-24 11:57 | CM ---
Reviewed the chart notes. Patient had a percutaneous endoscopic gastrostomy placed today. CM continues to be available to patient/family and is monitoring medical plan for needs at discharge.
Plan: Discharge plans will depend on the patient's progress.
--- NOTE | 2023-09-24 12:00 | PTCARENOTE ---
Patient received from GI lab. Peg tube in place. VSS. Patient resting comfortably in bed, updated.
[2023-09-24] MEDS: FLUSH (NSS) 1 FLUSH IV (14:40)
[2023-09-24] MEDS: D5LR 1000 IV (14:41)
[2023-09-24] MEDS: LOVENOX 40 MG SC (17:20)
[2023-09-24] MEDS: ROBITUSSIN 200 MG TUBE ×2 (17:20→21:39)
[2023-09-24] MEDS: SEROQUEL 12.5 MG TUBE (17:20)
[2023-09-24 18:14] LABS: Glucose - Point of Care 117 mg/dl (70-99)
[2023-09-24] MEDS: LOPRESSOR 25 MG TUBE (20:11)
[2023-09-24] MEDS: MELATONIN 5 MG PO (21:39)
[2023-09-25] VITALS (7 sets, daily range): BP systolic 133–165; BP diastolic 75–86; PULSE 80; O2SAT 97; BMI 16.5
[2023-09-25 00:17] LABS: Glucose - Point of Care 108 mg/dl (70-99)
[2023-09-25] MEDS: NOVOLOG FLEXPEN-LOW RESISTANCE SC ×5 (00:17→23:57)
[2023-09-25] MEDS: TYLENOL 650 MG TUBE ×2 (01:35→22:19)
[2023-09-25] MEDS: ZOSYN 100 IV (04:21)
[2023-09-25 06:18] LABS: Glucose - Point of Care 122 mg/dl (70-99)
[2023-09-25 06:26] LABS: Hematocrit 25.1 % (39.0-52.0); Mean Corp Hgb Conc. 31.9 g/dL (33.0-37.0); Mean Corpuscular Hgb 28.9 pg (27.0-31.0); Mean Corpuscular Volume 90.6 fL (80.0-94.0); Mean Platelet Volume 12.5 fL (7.4-10.4); Platelet Count 245 10^3/uL (130-400); Red Blood Cell Count 2.77 10^6/uL (4.70-6.10); Red Cell Dist. Width 13.6 % (11.5-14.5)
[2023-09-25 06:52] LABS: Blood Urea Nitrogen 11 mg/dl (9-20); Calcium 7.8 mg/dl (8.4-10.2); Carbon Dioxide 30 mmol/L (22-30); Chloride 100 mmol/L (98-107); Estimated Creatinine Clearance 70 ml/min; Glucose 121 mg/dl (70-99); Potassium 3.1 mmol/L (3.5-5.1); Sodium 138 mmol/L (135-145); eGFR > 60.00
[2023-09-25] MEDS: SPIRIVA RESPIMAT 2.5 MCG 2 PUFF INH (07:19)
[2023-09-25] MEDS: XOPENEX 1.25 MG INHALANT SOLUTION INH ×3 (07:19→20:20)
[2023-09-25] MEDS: ADVAIR HFA 115/21 MCG INHALER 1 PUFF INH ×2 (07:19→20:20)
[2023-09-25 09:08] LABS: Magnesium 1.7 mg/dl (1.6-2.3); Phosphorus 2.8 mg/dl (2.5-4.5)
[2023-09-25] MEDS: KCL 270 MEQ IV (09:28)
[2023-09-25] MEDS: FEOSOL TUBE ×2 (09:56→12:12)
[2023-09-25] MEDS: LIPITOR 10 MG TUBE (09:57)
[2023-09-25] MEDS: LOPRESSOR 25 MG TUBE ×2 (09:58→20:17)
[2023-09-25] MEDS: LOW STRENGTH ASPIRIN 81 MG TUBE (10:03)
[2023-09-25] MEDS: PREVACID 15 MG TUBE (10:04)
[2023-09-25] MEDS: ROBITUSSIN 200 MG TUBE ×4 (10:05→20:17)
--- NOTE | 2023-09-25 10:38 | W.PN.PUL3 ---
Today's Communication / Plan
-
O2
Atb - last day today
Incentive spirometer
Spiriva and Advair
PEG placed yesterday - continue aspiration precautions
Mucolytics and chest PT to help clear up his left lung
Repeat CXR in 4-6 weeks.
Assessment
-
Assessment:
Mr Bhanu García is a 77/M adm 09-15 with 4 d h/o dyspnea and productive cough. 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 Adm CTA
showed LLL pneumonia, severe emphysema and no PE. At ER given vanco/zosyn, changed on adm to doxycycline/metronidazole/ceftriaxone. Sputum cx positive for pansensitive Ps aerug, atbs changed to zosyn on 09-17. VSE 09-17 showed aspiration of all
consistencies of solids and liquids and strict NPO was recommended. Pulm consulted 09-18 for interim increase in dyspnea and O2 requirement
Impression:
Acute on chronic respiratory failure with LLL-bronchus collapse due to aspiration with subsequent LLL atelectasis
CAP, large size L infiltrate: tan-S Ps aerug
Functional oral stage and severe pharyngeal stage dysphagia: acute on chronic
Leukocytosis
Elevated troponins - peaked at 0.071 on 09/15/2023
Elevated BNP
COVID/flu negative
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
Very severe COPD on O2 2-3L, fluticasone/salmeterol, albuterol, spiriva
MARYAM lobectomy for lung cancer in 2010
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
Bio AVR 2006, sternotomy
Prostate cancer s/p XRT
Lumbar spine surgery
Nephrolithiasis
HTN
HLD
Cachexia
DNR
Plan:
Keep MAP>65 and SpO2 >90%
Acapella valve, encouraged to embrace regimen
Asp precs
Mucolytics with chest PT to help clear up L-lung
Continue zosyn for Ps aerug pneumonia (tan-S) - started zosyn on 09/17 after being on doxy x 3 days, flagy x 4 days, and got 1 dose of zithromax and 2 doses of rocephin
Negative blood cxs
Duration of treatment at least 7-10 d --> last day of zosyn today
CXR 09-18 with large L sided infiltrate. No infiltrate at R field
He should get repeat CXR in 4-6 weeks
Continue spiriva and advair
Continue levalbuterol tid and prn
Severe dysphagia VSE 09-17, suspected acute on chronic: speech rec strict NPO for now
Wt loss, cachexia
Continue new onset enteral feedings by DHT --> s/p PEG placement yesterday
Retested VSE 09-21:severe pharyngeal stage
Start tube feeds and then DC D5LR to avoid volume overload
PPI
DVT prophylaxis
DNR status, overall prognosis guarded
Pulmonary to continue to follow.
Diagnostic tests:
CXR 09-22-2023: The tip of the feeding tube is in the stomach
CXR 09-18-23: c/w October 2013. Chronic L field volume loss, sternotomy wiring. New large L sided infiltrate with sparing. DHT tip in high position. R field with no infiltrate
Chest CTA 09-15-23: severe emphysema. Large L sided infiltrate
Subjective Data
-
Date of Service:
Date of Service: September 25, 2023
Chief Complaint: Pulmonary Follow Up
Subjective:
Patient seen this morning. He is on 2 L/min nasal cannula, with no acute events reported overnight.
Review of Systems
General: Other (Negative unless mentioned above)
Objective Data
Data Reviewed
Vital Signs / I&O / Oxygen:
Vital Signs
Temp Pulse Resp BP Pulse Ox
97.9 F 89 18 139/75 96
09/25/23 03:37 09/25/23 09:58 09/25/23 03:37 09/25/23 09:58 09/25/23 03:37
Intake and Output
09/24/23 09/25/23 09/26/23
06:59 06:59 06:59
Intake Total 1625 / 1625 950 / 950
Output Total 1245 / 1245 925 / 925
Balance 380 / 380
SaO2 96
Nasal Cannula flow liters per 3
minute
Physical Exam
General: Respiratory Distress (neg), Comfortable and Other (cachectic)
HEENT: Normocephalic and Anicteric
Cardiovascular: S1-S2, Murmur (n), JVD (n) and Peripheral Edema (n)
Respiratory: Wheeze (negative), Crackles (negative), Rhonchi (left hemithorax), Accessory Resp Muscle Use (negative), Stridor (n) and Other (Reduced breath sounds b/l)
GI: Soft, Non Distended and Non Tender
Neurology: Awake and No Motor Deficits
Skin: Warm and Dry
Labs/Micro/Reports
Lab Data
09/25/23 05:45
09/25/23 05:45
--- NOTE | 2023-09-25 10:39 | W.PN.HOSP.TC ---
Today's Communication/Plan
-
PT OT
Dietary evaluation for tube feed recommendations
Start tube feeds
Encourage out of bed
Aspiration precautions to be maintained still
May need rehab
Discharge planning
Assessment / Plan
Assessment / Plan
Mr. 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
with 4 days shortness of breath, productive cough, admitted for extensive left lower lobe pneumonia. He moved here from [place], [place] 5 days ago
CT PEExtensive left lower lobe pneumonia.Severe emphysematous changes.There is no pulmonary embolism
TTE-Left ventricle is small in size. Normal left ventricular systolic function.�Left ventricular ejection fraction is 55%. Normal regional wall motion. Mild concentric left ventricular hypertrophy.Mild mitral regurgitation.Normally functioning
bioAVR - Peak gradient 10mmHg/Mean gradient 6mmHg - no�aortic regurgitation is seen.Mild tricuspid regurgitation. Estimated pulmonary artery pressure of 35-40 mm Hg.No prior echo for comparison.
CVS: S1-S2 normal
Chest:diminished BS
Abdomen: Soft, NT , Bowel sounds present
Extremities: No edema
�
#Left lower lobe pneumonia
Pseudomonas Pneumonia
Sepsis 2/2 PNA
Acute on chronic respiratory insufficiency
CT PE study with extensive left lower lobe pneumonia no PE.
Stop Zosyn
Leukocytosis resolved
09/18: increased tachypnea/tachycardia - repeat CXR portable with worsening PNA, likely related to anxiety
Appreciate pulmonary
Continue acapella, scheduled Robitussin
#Severe emphysema on albuterol and fluticasone and Spiriva inhalers as outpatient
�Chronic respiratory failure on 2 to 3 L of oxygen at home
Continue PILER inhalers, changed albuterol to levalbuterol given tachycardia
#Recurrent Aspiration
-Likely 2/2 hx laryngeal CA and radiation
-VSE with aspiration on all foods and liquids
-Had a dobhoff off and on and now PEG placed 09/24/23
-Dietary consult placed for tube feed recommendations to be started at 10 mm/h and advance
# Lactic acidosis-Resolved
# Hypokalemia-replace
#Drop in hg 2/2 dilution
#Iron studies show KYM
-Patient now okay with lower dose aspirin
-Will need outpatient work-up for KYM
-Hg relatively stable
# Mildly elevated troponin-likely secondary to respiratory distress-follow
TTE without WMA
# Urinary frequency
-UA without e/o infection
#Mild Thrombocytopenia-resolved
# History of prostate cancer with radiation in the past
# History of SCC lung� with left upper lobectomy in 2000
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
He cannot recall the details, but states he had laryngeal cancer and received 28 courses of radiation therapy per Dr. Sidhu in September of 2012.
# 45 pound weight loss
# Hypertension-on Coreg
# Hypomagnesemia-replace
# Prolonged QTc
# Hyperlipidemia-on simvastatin
# At least patient has moderate protein calorie malnutrition
# History of noncritical coronary disease.
# History of aortic valve replacement in 2006-bioprosthetic aortic valve
# History of lumbar disc surgery
# Nephrolithiasis
# Hypoalbuminemia
# DVT prophylaxis-Lovenox
# DNR status per discussion with patient and daughter at bedside
D/W [facility] for TF
D/W on the phone and updated.
Anticipated Discharge: 24 - 48 hours
Subjective/Interval History
-
Date of Service: September 25, 2023
Objective Data
-
Labs:
Laboratory Results
09/25/23
05:45
WBC 10.0
Hgb 8.0 L
Hct 25.1 L
Plt Count 245
Sodium 138
Potassium 3.1 L
Chloride 100
Carbon Dioxide 30
BUN 11
Creatinine 0.5 L
Glucose 121 H
Calcium 7.8 L
Vital Signs:
Vital Signs
Temp Pulse Resp BP Pulse Ox
97.9 F 89 18 139/75 96
09/25/23 03:37 09/25/23 09:58 09/25/23 03:37 09/25/23 09:58 09/25/23 03:37
I&O
09/24/23 09/25/23 09/26/23
06:59 06:59 06:59
Intake Total 1625 / 1625 950 / 950
Output Total 1245 / 1245 925 / 925
Balance 380 / 380
[2023-09-25] MEDS: FERROUS SULFATE ORAL LIQUID 300 MG TUBE (10:56)
[2023-09-25] MEDS: VITAMIN B1 100 MG TUBE (10:57)
[2023-09-25 11:48] LABS: Vitamin D, 25-OH*** 21.1 ng/mL (30-80)
[2023-09-25 12:01] LABS: Glucose - Point of Care 105 mg/dl (70-99)
[2023-09-25] MEDS: ZOSYN IV (12:12)
[2023-09-25] MEDS: MAGNESIUM SULFATE 102 GRAMS IV (12:14)
--- NOTE | 2023-09-25 15:46 | CM ---
Reviewed the chart notes and spoke with the patient and spouse at the bedside. Patient started on tube feeding today. Patient and spouse are agreeable to SNF/rehab prior to transitioning back to home. SNF list provided to the patient's spouse.
She will review and provide names for referrals to be sent. CM continues to be available to patient/family and is monitoring medical plan for needs at discharge.
Plan: Discharge to SNF/rehab once bed secured. No precert required.
--- NOTE | 2023-09-25 16:22 | W.PN.GI.CBS2 ---
Addendum entered and electronically signed by Tita Amezquita MD 09/25/23 18:00:
I saw and examined the patient.
The BEHAVIORAL HEALTH CLINICIAN or PA's note was reviewed and I agree with the note.
Comment: No events overnight.
PEG site looks clean without any drainage
Tube feeds initiated, advance as tolerated to goal.
Will sign off, please call back if needed.
Original Note:
Today's Communication / Plan
-
s/p peg 09/24
tolerating low dose feeds
advance as tolerated
return to GI office with any issues with feeding tube
updated family at bedside
will sign off call with questions
Assessment / Plan
-
Patient is a 77-year-old male with history of COPD on home oxygen, MARYAM lobectomy for lung cancer in 2010, laryngeal cancer status post resection of SqCC VC polyp in 2011, bio AVR in 2006 admitted with LLL pneumonia suspected be from aspiration.
Patient had speech eval and failed swallow evaluation. We have been consulted for PEG placement.
Impression / Rec:
-PNA
-s/p peg 09/24
-wt loss
-COPD with home O2
-hx lobectomy for lung CA
-laryngeal CA with resection- radiation
-prostate CA
-AVR
thrombocytopenia
PLAN:
s/p peg 09/24
tolerating low dose feeds
advance as tolerated
return to GI office with any issues with feeding tube
updated family at bedside
will sign off call with questions
Subjective
Subjective
Date of Service: September 25, 2023
s/p peg 09/24 with tube feeds at 10ml/hr 09/25 brown stool
Objective
Data Reviewed
Laboratory Data:
Laboratory Results
09/25/23 05:45
09/25/23 05:45
Laboratory Results
Phosphorus 2.8 mg/dl (2.5-4.5) 09/25/23 05:45
Magnesium 1.7 mg/dl (1.6-2.3) 09/25/23 05:45
Total Bilirubin 0.7 mg/dl (0.2-1.3) 09/17/23 04:10
AST 17 U/L (17-59) 09/17/23 04:10
ALT 12 U/L (0-50) 09/17/23 04:10
Alkaline Phosphatase 110 U/L (38-126) 09/17/23 04:10
Vital Signs and I&O:
Vital Signs
Temp Pulse Resp BP Pulse Ox
97.8 F 85 28 165/85 96
09/25/23 15:20 09/25/23 15:20 09/25/23 15:20 09/25/23 15:20 09/25/23 15:20
I&O
09/24/23 09/25/23 09/26/23
06:59 06:59 06:59
Intake Total 1625 / 1625 950 / 950
Output Total 1245 / 1245 925 / 925
Balance 380 / 380
Physical Exam
Physical Exam
HEENT: Anicteric and Moist mucous membranes
Cardiology: Normal Sinus Rhythm
Pulmonary: Clear
GI: Soft, Non Distended and Tender (mild around peg site)
Extremities: No Edema
Neuro: Non Focal
[2023-09-25] MEDS: D5LR IV (17:44)
[2023-09-25] MEDS: SEROQUEL 12.5 MG TUBE (17:45)
[2023-09-25] MEDS: LOVENOX 40 MG SC (17:45)
[2023-09-25 18:38] LABS: Glucose - Point of Care 100 mg/dl (70-99)
[2023-09-25] MEDS: MELATONIN 5 MG TUBE (20:16)
--- NOTE | 2023-09-25 23:07 | PTCARENOTE ---
Increased patients tube feeding by 20 mLs per order after 8 hours. Patient rang complaining of abdominal pain. This nurse decreased rate by 10 mls/hr and administered Tylenol for mild pain. GRAIN ELEVATOR OPERATOR on floor. Looked over patient and site of PEG tube.
Patient resting in room.
[2023-09-25 23:56] LABS: Glucose - Point of Care 121 mg/dl (70-99)
[2023-09-26] VITALS (7 sets, daily range): BP systolic 127–160; BP diastolic 78–87; O2SAT 93; BMI 16.2
[2023-09-26 05:21] LABS: Hematocrit 25.4 % (39.0-52.0); Hemoglobin 8.3 g/dL (13.0-18.0); Mean Corp Hgb Conc. 32.7 g/dL (33.0-37.0); Mean Corpuscular Volume 88.8 fL (80.0-94.0); Mean Platelet Volume 12.1 fL (7.4-10.4); Platelet Count 301 10^3/uL (130-400); Red Blood Cell Count 2.86 10^6/uL (4.70-6.10); White Blood Cell Count 7.6 10^3/uL (4.8-10.8)
[2023-09-26 05:55] LABS: Blood Urea Nitrogen 10 mg/dl (9-20); Carbon Dioxide 31 mmol/L (22-30); Chloride 99 mmol/L (98-107); Estimated Creatinine Clearance 69 ml/min; Glucose 108 mg/dl (70-99); Magnesium 1.9 mg/dl (1.6-2.3); Potassium 3.1 mmol/L (3.5-5.1); Sodium 138 mmol/L (135-145); eGFR > 60.00
[2023-09-26 06:00] LABS: Glucose - Point of Care 110 mg/dl (70-99)
[2023-09-26] MEDS: NOVOLOG FLEXPEN-LOW RESISTANCE SC ×3 (06:00→17:50)
[2023-09-26] MEDS: XOPENEX 1.25 MG INHALANT SOLUTION INH ×2 (07:25→13:47)
[2023-09-26] MEDS: ADVAIR HFA 115/21 MCG INHALER 1 PUFF INH ×2 (07:25→19:48)
[2023-09-26] MEDS: SPIRIVA RESPIMAT 2.5 MCG 2 PUFF INH (07:25)
[2023-09-26] MEDS: PREVACID 15 MG TUBE (08:02)
[2023-09-26] MEDS: LOW STRENGTH ASPIRIN 81 MG TUBE (08:02)
[2023-09-26] MEDS: LIPITOR 10 MG TUBE (08:02)
[2023-09-26] MEDS: FERROUS SULFATE ORAL LIQUID 300 MG TUBE (08:02)
[2023-09-26] MEDS: ROBITUSSIN 200 MG TUBE ×4 (08:02→20:32)
[2023-09-26] MEDS: VITAMIN B1 100 MG TUBE (08:02)
[2023-09-26] MEDS: LOPRESSOR 25 MG TUBE ×2 (08:05→20:39)
[2023-09-26] MEDS: KCL 270 MEQ IV (09:17)
--- NOTE | 2023-09-26 10:51 | W.PN.PUL3 ---
Today's Communication / Plan
-
O2
Atb - last day yesterday
Incentive spirometer
Spiriva and Advair
PEG placed on 09/24- continue aspiration precautions
Mucolytics and chest PT to help clear up his left lung
Repeat CXR in 4-6 weeks.
Outpatient follow-up with PFTs
Assessment
-
Assessment:
Mr Bhanu García is a 77/M adm 09-15 with 4 d h/o dyspnea and productive cough. 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 Adm CTA
showed LLL pneumonia, severe emphysema and no PE. At ER given vanco/zosyn, changed on adm to doxycycline/metronidazole/ceftriaxone. Sputum cx positive for pansensitive Ps aerug, atbs changed to zosyn on 09-17. VSE 09-17 showed aspiration of all
consistencies of solids and liquids and strict NPO was recommended. Pulm consulted 09-18 for interim increase in dyspnea and O2 requirement
Impression:
Acute on chronic respiratory failure with LLL-bronchus collapse due to aspiration with subsequent LLL atelectasis
CAP, large size L infiltrate: tan-S Ps aerug
Functional oral stage and severe pharyngeal stage dysphagia: acute on chronic - now s/p G-tube placement on 09/24/2023
Leukocytosis - now resolved
Elevated troponin - peaked at 0.071 on 09/15/2023
Elevated BNP
COVID/flu negative
Diarrhea - C diff negative - likely due to tube feeds
Conditions VP TALENT MANAGEMENT:
Very severe COPD on O2 2-3L, fluticasone/salmeterol, albuterol, spiriva
MARYAM lobectomy for lung cancer in 2010
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
Bio AVR 2006, sternotomy
Prostate cancer s/p XRT
Lumbar spine surgery
Nephrolithiasis
HTN
HLD
Cachexia
DNR
Plan:
Keep MAP>65 and SpO2 >90%
Acapella valve, encouraged to embrace regimen
Asp precs
Mucolytics with chest PT to help clear up L-lung --> would want percussor to left lung considering the degree of airway collapse in his LLL-bronchus and the severity of his pneumonia with weak cough
s/p Abx for Ps aerug pneumonia (tan-S) - started zosyn on 09/17 after being on doxy x 3 days, flagy x 4 days, and got 1 dose of zithromax and 2 doses of rocephin
Negative blood cxs
Duration of treatment at least 7-10 d --> last day of zosyn on 09/25/2023
CXR 09-18 with large L sided infiltrate. No infiltrate at R field
He should get repeat CXR in 4-6 weeks
Continue spiriva respimat 2.5mcg/act and advair 115mcg BID (rinse mouth after use)
Continue levalbuterol tid and prn
Severe dysphagia VSE 09-17, suspected acute on chronic: speech rec strict NPO for now
Wt loss, cachexia
Continue new onset enteral feedings by DHT --> s/p PEG placement on 09/24/2023
Retested VSE 09-21:severe pharyngeal stage
Continue tube feeds and advance rate as tolerated and as per RD
PPI
DVT prophylaxis
DNR status, overall prognosis guarded
Pulmonary to continue to follow. I will arrange for outpatient follow-up with me in the office.
Diagnostic tests:
CXR 09-22-2023: The tip of the feeding tube is in the stomach
CXR 09-18-23: c/w October 2013. Chronic L field volume loss, sternotomy wiring. New large L sided infiltrate with sparing. DHT tip in high position. R field with no infiltrate
Chest CTA 09-15-23: severe emphysema. Large L sided infiltrate
Subjective Data
-
Date of Service:
Date of Service: September 26, 2023
Chief Complaint: Pulmonary Follow Up
Subjective:
Seen today at bedside. at bedside. Patient upset as he feels that medical decisions about him are not being discussed with him. According to , he is very hard of hearing and also confused. Patient was agitated earlier today and
threatened to call the police on her. He is tolerating tube feeds but is having diarrhea. C. difficile was checked and is negative. He is currently saturating 97% on 2 L/min, and appears to be breathing comfortably.
Review of Systems
General: Other (Negative unless mentioned above)
Objective Data
Data Reviewed
Vital Signs / I&O / Oxygen:
Vital Signs
Temp Pulse Resp BP Pulse Ox
97.7 F 104 14 144/79 97
09/26/23 11:55 09/26/23 11:55 09/26/23 11:55 09/26/23 11:55 09/26/23 11:55
Intake and Output
09/25/23 09/26/23 09/27/23
06:59 06:59 06:59
Intake Total 950 / 950 270 / 270
Output Total 925 / 925 1075 / 1075
Balance 25 / 25 -805 / -805
SaO2 97
Nasal Cannula flow liters per 2
minute
Physical Exam
General: Respiratory Distress (neg), Comfortable and Other (cachectic)
HEENT: Normocephalic and Anicteric
Cardiovascular: S1-S2, Murmur (n), JVD (n) and Peripheral Edema (n)
Respiratory: Wheeze (negative), Crackles (negative), Rhonchi (left hemithorax (posteriorly)), Accessory Resp Muscle Use (negative), Stridor (n) and Other (Reduced breath sounds b/l)
GI: Soft, Non Distended and Non Tender
Neurology: Awake, Alert and No Motor Deficits
Skin: Warm and Dry
Labs/Micro/Reports
Lab Data
09/26/23 04:47
09/26/23 04:47
Microbiology
09/26/23 12:29 Feces/Stool C. difficile GDH Antigen & Toxins - Final
Negative for toxigenic C.difficile
--- NOTE | 2023-09-26 10:56 | W.PN.HOSP.TC ---
Addendum entered and electronically signed by Monik Hernandez MD 09/26/23 11:01:
Vitamin D deficiency-replace
Original Note:
Today's Communication/Plan
-
Check C. difficile
Add probiotics
Advance tube feeds to goals
As long as tube feeds are at goal patient can be discharged tomorrow
Assessment / Plan
Assessment / Plan
Mr. 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
with 4 days shortness of breath, productive cough, admitted for extensive left lower lobe pneumonia. He moved here from [place], [place] 5 days ago
[address] PEExtensive left lower lobe pneumonia.Severe emphysematous changes.There is no pulmonary embolism
TTE-Left ventricle is small in size. Normal left ventricular systolic function.�Left ventricular ejection fraction is 55%. Normal regional wall motion. Mild concentric left ventricular hypertrophy.Mild mitral regurgitation.Normally functioning
bioAVR - Peak gradient 10mmHg/Mean gradient 6mmHg - no�aortic regurgitation is seen.Mild tricuspid regurgitation. Estimated pulmonary artery pressure of 35-40 mm Hg.No prior echo for comparison.
CVS: S1-S2 normal
Chest:diminished BS
Abdomen: Soft, NT , Bowel sounds present
Extremities: No edema
�
#Left lower lobe pneumonia
Pseudomonas Pneumonia
Sepsis 2/2 PNA
Acute on chronic respiratory insufficiency
CT PE study with extensive left lower lobe pneumonia no PE.
Finished a course of Zosyn
Leukocytosis resolved
09/18: increased tachypnea/tachycardia - repeat CXR portable with worsening PNA, likely related to anxiety
Appreciate pulmonary
Continue acapella, scheduled Robitussin
#Severe emphysema on albuterol and fluticasone and Spiriva inhalers as outpatient
�Chronic respiratory failure on 2 to 3 L of oxygen at home
Continue NET TRAINER inhalers, changed albuterol to levalbuterol given tachycardia
#Recurrent Aspiration
-Likely 2/2 hx laryngeal CA and radiation
-VSE with aspiration on all foods and liquids
-Had a dobhoff , off and on and now PEG placed 09/24/23
-Tube feeds started. Because of patient's mild abdominal pain slow advance. At 20 mill per hour now. Advance to goal rate as tolerated.
# Lactic acidosis-Resolved
# Hypokalemia-replace
# Loose stools.
Since patient was on antibiotics will check C. difficile
#Drop in hg 2/2 dilution
#Iron studies show KYM
-Patient now okay with lower dose aspirin
-Will need outpatient work-up for KYM
-Hg relatively stable
# Mildly elevated troponin-likely secondary to respiratory distress-follow
TTE without WMA
# Urinary frequency
-UA without e/o infection
#Mild Thrombocytopenia-resolved
# History of prostate cancer with radiation in the past
# History of SCC lung� with left upper lobectomy in 2000
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
He cannot recall the details, but states he had laryngeal cancer and received 28 courses of radiation therapy per Dr. Sidhu in September of 2012.
# 45 pound weight loss
# Hypertension-on Coreg
# Hypomagnesemia-replace
# Prolonged QTc
# Hyperlipidemia-on simvastatin
# At least patient has moderate protein calorie malnutrition
# History of noncritical coronary disease.
# History of aortic valve replacement in 2006-bioprosthetic aortic valve
# History of lumbar disc surgery
# Nephrolithiasis
# Hypoalbuminemia
# DVT prophylaxis-Lovenox
# DNR status per discussion with patient and daughter at bedside
Discussed with at bedside
Discussed with RN
Anticipated Discharge: Within 24 hours
Subjective/Interval History
-
Date of Service: September 26, 2023
Objective Data
-
Labs:
Laboratory Results
09/26/23
04:47
WBC 7.6
Hgb 8.3 L
Hct 25.4 L
Plt Count 301 D
Sodium 138
Potassium 3.1 L
Chloride 99
Carbon Dioxide 31 H
BUN 10
Creatinine 0.5 L
Glucose 108 H
Calcium 8.0 L
Vital Signs:
Vital Signs
Temp Pulse Resp BP Pulse Ox
97.5 F 102 14 152/86 97
09/26/23 07:40 09/26/23 08:05 09/26/23 07:40 09/26/23 08:05 09/26/23 09:00
I&O
09/25/23 09/26/23 09/27/23
06:59 06:59 06:59
Intake Total 950 / 950 270 / 270
Output Total 925 / 925 1075 / 1075
Balance 25 / 25 -805 / -805
[2023-09-26 11:23] LABS: Glucose - Point of Care 139 mg/dl (70-99)
[2023-09-26] MEDS: VITAMIN D3 (cholecalciferol) 125 MCG TUBE (12:31)
[2023-09-26] MEDS: FLORASTOR 250 MG PO ×2 (12:33→20:39)
[2023-09-26] MEDS: TYLENOL 650 MG TUBE ×2 (12:33→22:07)
--- NOTE | 2023-09-26 14:00 | PTCARENOTE ---
This RN and tech assisted patient to commode for BM, gave patient call zhao and stated importance of ringing when he was finished so RN and tech can provide assistance; patient verbalized understanding, privacy provided. Patient rang a few minutes
later stating he felt lightheaded, said 'I'm going to pass out.' Patient 87% on 2L, patient's O2 increased to 4L, patient transferred back to bed by this RN and tech. POX 96% on 4L, O2 decreased to 2L, POX 95%. Patient states mild abdominal pain
throughout, unable to rate but says it feels 'sore.' PRN tylenol given through PEG tube. New tube feed hung, rate increased to 30 ml/hr with goal rate of 50 ml/hr. MD made aware of events, patient resting in bed with call zhao in place, states no
other concerns at this time.
--- NOTE | 2023-09-26 14:32 | CM ---
Met with patient's at the bedside; obtained SNF preferences:
[facility] [place]
2. [facility]
3. [facility]
4. [facility]
5. [facility] [place]
6. [facility]
7. [facility]
[2023-09-26] MEDS: SEROQUEL 12.5 MG TUBE (17:43)
[2023-09-26] MEDS: LOVENOX 40 MG SC (17:43)
[2023-09-26 17:49] LABS: Glucose - Point of Care 140 mg/dl (70-99)
[2023-09-26] MEDS: MELATONIN 5 MG TUBE (20:39)
[2023-09-26] MEDS: KCL ELIXIR 20 MEQ TUBE (22:07)
[2023-09-27 00:11] LABS: Glucose - Point of Care 149 mg/dl (70-99)
[2023-09-27] MEDS: NOVOLOG FLEXPEN-LOW RESISTANCE SC ×4 (00:20→23:58)
[2023-09-27 03:53] VITALS: BP 170/110
[2023-09-27 05:43] VITALS: BMI 16.0
[2023-09-27 05:45] LABS: Blood Urea Nitrogen 11 mg/dl (9-20); Calcium 8.1 mg/dl (8.4-10.2); Carbon Dioxide 32 mmol/L (22-30); Chloride 100 mmol/L (98-107); Estimated Creatinine Clearance 69 ml/min; Glucose 120 mg/dl (70-99); Potassium 3.7 mmol/L (3.5-5.1); Sodium 138 mmol/L (135-145); eGFR > 60.00
[2023-09-27 06:05] LABS: Glucose - Point of Care 150 mg/dl (70-99)
[2023-09-27] MEDS: NOVOLOG FLEXPEN-LOW RESISTANCE 1 UNITS SC (06:07)
[2023-09-27] MEDS: SPIRIVA RESPIMAT 2.5 MCG 2 PUFF INH (07:37)
[2023-09-27] MEDS: ADVAIR HFA 115/21 MCG INHALER 1 PUFF INH ×2 (07:37→19:46)
[2023-09-27 08:17] VITALS: BP 158/83
[2023-09-27] MEDS: FERROUS SULFATE ORAL LIQUID 300 MG TUBE (09:37)
[2023-09-27] MEDS: ROBITUSSIN 200 MG TUBE ×4 (09:37→20:00)
[2023-09-27] MEDS: VITAMIN D3 (cholecalciferol) 125 MCG TUBE (09:38)
[2023-09-27] MEDS: PREVACID 15 MG TUBE (09:39)
[2023-09-27] MEDS: LOPRESSOR 25 MG TUBE ×2 (09:39→20:00)
[2023-09-27] MEDS: LOW STRENGTH ASPIRIN 81 MG TUBE (09:40)
[2023-09-27] MEDS: VITAMIN B1 100 MG TUBE (09:40)
[2023-09-27] MEDS: FLORASTOR 250 MG PO ×2 (09:41→20:00)
[2023-09-27] MEDS: LIPITOR 10 MG TUBE (09:41)
--- NOTE | 2023-09-27 11:21 | CON.MD ---
Consultation - Medical
-
patient seen chart reviewed. case discussed w dr cedeño. at bedside. the patient is a 77 year old male with hx of numerous medical issues including but not limited to lung cancer w resection, prostate cancer and laryngeal cancers which have
left him with sequelae of the rx including problems w swallowing and recurrent aspiration, cardiac issues, htn , hld, tcp, severe weight loss, hld, lumbar surgery w back pain, kidney stone etc. at issue today is periods of agitation for which
seroquel was prescribed as a prn and standing order. another important issue includes peg tube placement about which there is considerable conflict with believing she and h made the decision to forego peg tube but with the appearance of
patient's older d by a first marriage and her nurse the patient was convinced to allow peg tube placement which happened on 09.24. is clearly not so happy with this decision. the patient was the says and i agree very with it this
am. said she had been concerned about changes in his mental status with periods of agitation anger over the past two weeks since he came back to [place]. he answered all of my questions appropriately. he denied that he was depressed but said he did
not feel anyone in his situation would be especially happy. he spoke of his decision re the peg tube as one he made after talking w his d and it is his will that they simply see how it goes from day to day . he reserves the right to change his mind
at some point in the future if he deems that is what he wants. the patient has had periods of agitation in the evening and was receiving a standing order of seroquel 12.5 mg q 5 pm with a prn of same which he used only once a few days ago.
davidson requested guidance as to whether to continue w this regimen at this point.
past psych hx see above. there is no prior psych hx
medical see above. patient with numerous medical problems. qtc 476 anemia
family hx non contributory
substance abuse none
social patient is to a supportive who was at bedside. 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 he used to enjoy golf but says his illness has curtailed his hobbies. he and have seven kids between them and 13 grands.
they moved to [facility] in 2013 but moved back two weeks ago given patient illness patient is a [employer] vet..told me that is one thing he will NOT talk about and i told him it would not be necessary to discuss this
mse alert ox3 cooperative speech nl rate and tone. some changes in speech secondary to laryngeal radiation thought process goal oriented no psychosis mood is neutral affect ok no si no psychosis insight judgment seem good
dx adjustment d/o episodes of delirium / tme earlier in hospitalization
plan for now would make seroquel prn after checking again qtc interval. explained to patient and the rationale for using this if he is agitated and in a delirious state where he could potentially come to harm. will check in on him tomorrow
[2023-09-27 11:33] LABS: Glucose - Point of Care 137 mg/dl (70-99)
[2023-09-27 11:50] VITALS: PULSE 83; PULSE 93; O2SAT 97
[2023-09-27] MEDS: TYLENOL 650 MG TUBE ×2 (12:04→21:15)
--- NOTE | 2023-09-27 14:02 | W.PN.PUL3 ---
Today's Communication / Plan
-
Continue with aspiration precautions
Discussed importance of muscle strengthening, airway clearance
Antibiotics have been discontinued
Repeat chest x-ray in 4 to 6 weeks with outpatient pulmonary follow-up
Continue inhaler therapy
Assessment
-
Assessment:
Mr Bhanu García is a 77/M adm 09-15 with 4 d h/o dyspnea and productive cough. 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 Adm CTA
showed LLL pneumonia, severe emphysema and no PE. At ER given vanco/zosyn, changed on adm to doxycycline/metronidazole/ceftriaxone. Sputum cx positive for pansensitive Ps aerug, atbs changed to zosyn on 09-17. VSE 09-17 showed aspiration of all
consistencies of solids and liquids and strict NPO was recommended. Pulm consulted 09-18 for interim increase in dyspnea and O2 requirement
Impression:
Acute on chronic respiratory failure with LLL-bronchus collapse due to aspiration with subsequent LLL atelectasis
CAP, large size L infiltrate: tan-S Ps aerug
Functional oral stage and severe pharyngeal stage dysphagia: acute on chronic - now s/p G-tube placement on 09/24/2023
Leukocytosis - now resolved
Elevated troponin - peaked at 0.071 on 09/15/2023
Elevated BNP
COVID/flu negative
Diarrhea - C diff negative - likely due to tube feeds
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
Very severe COPD on O2 2-3L, fluticasone/salmeterol, albuterol, spiriva
MARYAM lobectomy for lung cancer in 2010
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
Bio AVR 2006, sternotomy
Prostate cancer s/p XRT
Lumbar spine surgery
Nephrolithiasis
HTN
HLD
Cachexia
DNR
Plan:
At this time, appears to be comfortable, tolerating tube feeds
Weak cough noted, occasionally productive
Chest exam with decreased breath sounds
Remains on 2 L
Moving forward
Continue with airway clearance measures, aspiration precautions
Discussed importance of muscle strengthening, optimization of cough
Acapella valve, encouraged to embrace regimen
Continue Spiriva/Advair
s/p Abx for Ps aerug pneumonia (tan-S) -completed Zosyn 09/25
CXR 09-18 with large L sided infiltrate. Minimal patchy interstitial changes right side
He should get repeat CXR in 4-6 weeks
Severe dysphagia VSE 09-17, suspected acute on chronic: speech rec strict NPO for now, feeding tube in place
Wt loss, cachexia
Continue tube feeds and advance rate as tolerated and as per RD
PPI
DVT prophylaxis
DNR status, overall prognosis guarded
Discussed importance of muscle strengthening
Pulmonary to continue to follow. Follow-up information left in chart
Diagnostic tests:
CXR 09-22-2023: The tip of the feeding tube is in the stomach
CXR 09-18-23: c/w October 2013. Chronic L field volume loss, sternotomy wiring. New large L sided infiltrate with sparing. DHT tip in high position. R field with no infiltrate
Chest CTA 09-15-23: severe emphysema. Large L sided infiltrate
Subjective Data
-
Date of Service:
Date of Service: September 27, 2023
Chief Complaint: Pulmonary Follow Up
Subjective:
Patient profoundly weak. Has a weak cough but does produce mucus, no blood. Denies chest pain. Has mild feeding tube discomfort. at bedside
Objective Data
Data Reviewed
Vital Signs / I&O / Oxygen:
Vital Signs
Temp Pulse Resp BP Pulse Ox
98.1 F 99 28 158/83 97
09/27/23 08:17 09/27/23 09:39 09/27/23 08:17 09/27/23 09:39 09/27/23 10:15
Intake and Output
09/26/23 09/27/23 09/28/23
06:59 06:59 06:59
Intake Total 410 / 410 1470 / 1470
Output Total 1075 / 1075 1300 / 1300
Balance -665 / -665 170 / 170
SaO2 97
Nasal Cannula flow liters per 2
minute
Physical Exam
General: Comfortable and Other (cachectic)
HEENT: Normocephalic and Anicteric
Cardiovascular: S1-S2, Regular Rhythm, Murmur (n), JVD (n) and Peripheral Edema (n)
Respiratory: Wheeze (negative), Crackles (negative), Rhonchi (no), Accessory Resp Muscle Use (Mild with movement), Stridor (n) and Other (Reduced breath sounds b/l)
GI: Soft, Non Distended, Non Tender and Feeding Tube ( feeding tube, PEG tube)
Neurology: Awake, Alert and No Motor Deficits (Requires mild assistance to set up)
Skin: Dry and Jaundice
Labs/Micro/Reports
Lab Data
09/26/23 04:47
09/27/23 04:42
Microbiology
09/26/23 12:29 Feces/Stool C. difficile GDH Antigen & Toxins - Final
Negative for toxigenic C.difficile
--- NOTE | 2023-09-27 15:35 | W.PN.HOSP.TC ---
Today's Communication/Plan
-
Medically stable for discharge to rehab when the bed is available. Discussed with case management
Assessment / Plan
Assessment / Plan
Mr. 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
with 4 days shortness of breath, productive cough, admitted for extensive left lower lobe pneumonia. He moved here from [place], [place] 5 [place] ago
[address] PEExtensive left lower lobe pneumonia.Severe emphysematous changes.There is no pulmonary embolism
TTE-Left ventricle is small in size. Normal left ventricular systolic function.�Left ventricular ejection fraction is 55%. Normal regional wall motion. Mild concentric left ventricular hypertrophy.Mild mitral regurgitation.Normally functioning
bioAVR - Peak gradient 10mmHg/Mean gradient 6mmHg - no�aortic regurgitation is seen.Mild tricuspid regurgitation. Estimated pulmonary artery pressure of 35-40 mm Hg.No prior echo for comparison.
Patient was seen earlier. was at bedside at that time. Late documentation
CVS: S1-S2 normal
Chest:diminished BS
Abdomen: Soft, NT , Bowel sounds present
Extremities: No edema
Patient is more awake and alert less confused
�
#Left lower lobe pneumonia
Pseudomonas Pneumonia
Sepsis 2/2 PNA
Acute on chronic respiratory insufficiency
CT PE study with extensive left lower lobe pneumonia no PE.
Finished a course of Zosyn
Leukocytosis resolved
09/18: increased tachypnea/tachycardia - repeat CXR portable with worsening PNA, likely related to anxiety
Appreciate pulmonary
Continue acapella, Robitussin
#Severe emphysema on albuterol and fluticasone and Spiriva inhalers as outpatient
�Chronic respiratory failure on 2 to 3 L of oxygen at home
Continue [employer] inhalers, changed albuterol to levalbuterol given tachycardia
#Recurrent Aspiration
-Likely 2/2 hx laryngeal CA and radiation
-VSE with aspiration on all foods and liquids
-Had a dobhoff , off and on and now PEG placed 09/24/23
-Tube feeds started at goal now.
# Lactic acidosis-Resolved
# TME-on as needed Seroquel. Also suspect cognitive dysfunction
Psychiatric evaluation requested appreciated
# Hypokalemia-replaced
# Loose stools.
C. difficile negative. Added probiotics
#Drop in hg 2/2 dilution
#Iron studies show KYM
-Patient now okay with lower dose aspirin
-Will need outpatient work-up for KYM
-Hg relatively stable
# Mildly elevated troponin-likely secondary to respiratory distress-follow
TTE without WMA
# Urinary frequency
-UA without e/o infection
#Mild Thrombocytopenia-resolved
# History of prostate cancer with radiation in the past
# History of SCC lung� with left upper lobectomy in 2000
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
He cannot recall the details, but states he had laryngeal cancer and received 28 courses of radiation therapy per Dr. Sidhu in September of 2012.
# 45 pound weight loss
# Hypertension-on Coreg
# Hypomagnesemia-replace
# Prolonged QTc
# Hyperlipidemia-on simvastatin
# At least patient has moderate protein calorie malnutrition
# History of noncritical coronary disease.
# History of aortic valve replacement in 2006-bioprosthetic aortic valve
# History of lumbar disc surgery
# Nephrolithiasis
# Hypoalbuminemia
# DVT prophylaxis-Lovenox
# DNR status per discussion with patient and daughter at bedside
Discussed with at bedside
Discussed with RN
Discussed with psychiatry
Discussed with case management
Anticipated Discharge: Within 24 hours
Subjective/Interval History
-
Date of Service: September 27, 2023
Objective Data
-
Labs:
Laboratory Results
09/27/23
04:42
Sodium 138
Potassium 3.7
Chloride 100
Carbon Dioxide 32 H
BUN 11
Creatinine 0.5 L
Glucose 120 H
Calcium 8.1 L
Vital Signs:
Vital Signs
Temp Pulse Resp BP Pulse Ox
98.1 F 99 28 158/83 97
09/27/23 08:17 09/27/23 09:39 09/27/23 08:17 09/27/23 09:39 09/27/23 10:15
I&O
09/26/23 09/27/23 09/28/23
06:59 06:59 06:59
Intake Total 410 / 410 1470 / 1470
Output Total 1075 / 1075 1300 / 1300
Balance -665 / -665 170 / 170
[2023-09-27 16:03] VITALS: BP 137/86
[2023-09-27] MEDS: LOVENOX 40 MG SC (17:27)
[2023-09-27 18:18] LABS: Glucose - Point of Care 148 mg/dl (70-99)
[2023-09-27 19:30] VITALS: BP 150/80
[2023-09-27] MEDS: KCL ELIXIR 20 MEQ TUBE (20:00)
[2023-09-27] MEDS: MELATONIN 5 MG TUBE (20:00)
[2023-09-27 23:37] VITALS: BP 137/82
[2023-09-27 23:59] LABS: Glucose - Point of Care 148 mg/dl (70-99)
[2023-09-28] VITALS (7 sets, daily range): BP systolic 136–165; BP diastolic 62–88; PULSE 85; O2SAT 97; BMI 15.9
[2023-09-28 06:19] LABS: Glucose - Point of Care 158 mg/dl (70-99)
[2023-09-28] MEDS: NOVOLOG FLEXPEN-LOW RESISTANCE 1 UNITS SC (06:20)
[2023-09-28] MEDS: SPIRIVA RESPIMAT 2.5 MCG 2 PUFF INH (08:17)
[2023-09-28] MEDS: ADVAIR HFA 115/21 MCG INHALER 1 PUFF INH ×2 (08:18→20:03)
[2023-09-28] MEDS: ROBITUSSIN 200 MG TUBE ×4 (09:39→21:09)
[2023-09-28] MEDS: FERROUS SULFATE ORAL LIQUID 300 MG TUBE (09:39)
[2023-09-28] MEDS: VITAMIN D3 (cholecalciferol) 125 MCG TUBE (09:40)
[2023-09-28] MEDS: LIPITOR 10 MG TUBE (09:40)
[2023-09-28] MEDS: PREVACID 15 MG TUBE (09:40)
[2023-09-28] MEDS: LOW STRENGTH ASPIRIN 81 MG TUBE (09:40)
[2023-09-28] MEDS: FLORASTOR 250 MG PO ×2 (09:40→21:10)
[2023-09-28] MEDS: LOPRESSOR 25 MG TUBE ×2 (09:40→21:10)
[2023-09-28] MEDS: VITAMIN B1 100 MG TUBE (09:41)
--- NOTE | 2023-09-28 11:11 | W.PN.PUL3 ---
Today's Communication / Plan
-
Continue with aspiration precautions, nutrition
Airway clearance measures will continue
Repeat chest x-ray in 4 to 6 weeks with pulmonary follow-up
PT/OT, rehabilitation
Continue supplemental oxygen
We will sign off. Please call with questions
Assessment
-
Assessment:
Mr Bhanu García is a 77/M adm 09-15 with 4 d h/o dyspnea and productive cough. 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 Adm CTA
showed LLL pneumonia, severe emphysema and no PE. At ER given vanco/zosyn, changed on adm to doxycycline/metronidazole/ceftriaxone. Sputum cx positive for pansensitive Ps aerug, atbs changed to zosyn on 09-17. VSE 09-17 showed aspiration of all
consistencies of solids and liquids and strict NPO was recommended. Pulm consulted 09-18 for interim increase in dyspnea and O2 requirement
Impression:
Acute on chronic respiratory failure with LLL-bronchus collapse due to aspiration with subsequent LLL atelectasis
CAP, large size L infiltrate: tan-S Ps aerug
Functional oral stage and severe pharyngeal stage dysphagia: acute on chronic - now s/p G-tube placement on 09/24/2023
Leukocytosis - now resolved
Elevated troponin - peaked at 0.071 on 09/15/2023
Elevated BNP
COVID/flu negative
Diarrhea - C diff negative - likely due to tube feeds
Conditions SNUFF BLENDER:
Very severe COPD on O2 2-3L, fluticasone/salmeterol, albuterol, spiriva
MARYAM lobectomy for lung cancer in 2010
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
Bio AVR 2006, sternotomy
Prostate cancer s/p XRT
Lumbar spine surgery
Nephrolithiasis
HTN
HLD
Cachexia
DNR
Plan:
At this time, appears to be comfortable, tolerating tube feeds
Weak cough noted, occasionally productive. Seems to be responding to airway clearance
Chest exam with decreased breath sounds
Remains on 2 L
Moving forward
Continue with airway clearance measures, aspiration precautions
Discussed importance of muscle strengthening, optimization of cough
Patient able to expectorate green/yellow thick mucus
May need to consider 3% saline in the future but for now we will hold off
Continue Spiriva/Advair
s/p Abx for Ps aerug pneumonia (tan-S) -completed Zosyn 09/25
CXR 09-18 with large L sided infiltrate. Minimal patchy interstitial changes right side
He should get repeat CXR in 4-6 weeks
Severe dysphagia VSE 09-17, suspected acute on chronic: speech rec strict NPO for now, feeding tube in place
Wt loss, cachexia
Continue tube feeds and advance rate as tolerated and as per RD
PPI
DVT prophylaxis
DNR status, overall prognosis guarded
Discussed importance of muscle strengthening
Disposition efforts noted.
Follow-up information left in chart
Reviewed with patient, at bedside
We will sign off. Please call with questions
Diagnostic tests:
CXR 09-22-2023: The tip of the feeding tube is in the stomach
CXR 09-18-23: c/w October 2013. Chronic L field volume loss, sternotomy wiring. New large L sided infiltrate with sparing. DHT tip in high position. R field with no infiltrate
Chest CTA 09-15-23: severe emphysema. Large L sided infiltrate
Subjective Data
-
Date of Service:
Date of Service: September 28, 2023
Chief Complaint: Pulmonary Follow Up
Subjective:
Patient is feeling slightly stronger. Productive cough, thick green/yellow mucus, no blood. Denies chest pain, nausea. at bedside
Objective Data
Data Reviewed
Vital Signs / I&O / Oxygen:
Vital Signs
Temp Pulse Resp BP Pulse Ox
97.1 F 85 18 165/86 98
09/28/23 07:30 09/28/23 09:40 09/28/23 08:19 09/28/23 09:40 09/28/23 08:19
Intake and Output
09/27/23 09/28/23 09/29/23
06:59 06:59 06:59
Intake Total 1470 / 1470 1217 / 1217
Output Total 1300 / 1300 1450 / 1450
Balance 170 / 170 -233 / -233
SaO2 98
Nasal Cannula flow liters per 2
minute
Physical Exam
General: Comfortable and Other (cachectic)
HEENT: Normocephalic and Anicteric
Cardiovascular: S1-S2, Regular Rhythm, Murmur (n), JVD (n) and Peripheral Edema (n)
Respiratory: Wheeze (negative), Crackles (negative), Rhonchi (no), Accessory Resp Muscle Use (Mild with movement), Stridor (n) and Other (Reduced breath sounds b/l)
GI: Soft, Non Distended, Non Tender and Feeding Tube ( feeding tube, PEG tube)
Neurology: Awake, Alert and No Motor Deficits (Requires mild assistance to set up)
Skin: Dry and Jaundice
Labs/Micro/Reports
Lab Data
09/26/23 04:47
09/27/23 04:42
Microbiology
09/26/23 12:29 Feces/Stool C. difficile GDH Antigen & Toxins - Final
Negative for toxigenic C.difficile
[2023-09-28 11:26] LABS: Glucose - Point of Care 143 mg/dl (70-99)
--- NOTE | 2023-09-28 11:45 | W.PN.UPDATE ---
Update Note
Progress Note Update
patient seen chart reviewed discussed w nursing at bedside. patient did okay last evening and this am is much the same as he was when i spoke to him yeterday. he was pleasant cooperative and able to engage appropriately. he did not have any
periods of agitation last evening. at this point he and his agree that they do not need psych intervention. will sign off. please call us if you need us to return. snf bed currently being sought
[2023-09-28] MEDS: NOVOLOG FLEXPEN-LOW RESISTANCE SC ×2 (12:44→17:47)
--- NOTE | 2023-09-28 15:28 | W.PN.HOSP.TC ---
Today's Communication/Plan
-
Medically stable for discharge
Assessment / Plan
Assessment / Plan
Mr. 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
with 4 days shortness of breath, productive cough, admitted for extensive left lower lobe pneumonia. He moved here from [place], [place] 5 days ago
[address] PEExtensive left lower lobe pneumonia.Severe emphysematous changes.There is no pulmonary embolism
TTE-Left ventricle is small in size. Normal left ventricular systolic function.�Left ventricular ejection fraction is 55%. Normal regional wall motion. Mild concentric left ventricular hypertrophy.Mild mitral regurgitation.Normally functioning
bioAVR - Peak gradient 10mmHg/Mean gradient 6mmHg - no�aortic regurgitation is seen.Mild tricuspid regurgitation. Estimated pulmonary artery pressure of 35-40 mm Hg.No prior echo for comparison.
Patient was seen earlier. was at bedside at that time. Late documentation
CVS: S1-S2 normal
Chest:diminished BS
Abdomen: Soft, NT , Bowel sounds present
Extremities: No edema
Patient is more awake and alert less confused
�
#Left lower lobe pneumonia
Pseudomonas Pneumonia
Sepsis 2/2 PNA
Acute on chronic respiratory insufficiency
CT PE study with extensive left lower lobe pneumonia no PE.
Finished a course of Zosyn
Leukocytosis resolved
09/18: increased tachypnea/tachycardia - repeat CXR portable with worsening PNA, likely related to anxiety
Appreciate pulmonary
Continue acapella, Robitussin
#Severe emphysema on albuterol and fluticasone and Spiriva inhalers as outpatient
�Chronic respiratory failure on 2 to 3 L of oxygen at home
Continue [employer]ER inhalers, changed albuterol to levalbuterol given tachycardia
#Recurrent Aspiration
-Likely 2/2 hx laryngeal CA and radiation
-VSE with aspiration on all foods and liquids
-Had a dobhoff , off and on and now PEG placed 09/24/23
-Tube feeds started at goal now.
# Lactic acidosis-Resolved
# TME-on as needed Seroquel. Also suspect cognitive dysfunction
Psychiatric evaluation requested appreciated
# Hypokalemia-replaced
# Loose stools.
C. difficile negative. Added probiotics
#Drop in hg 2/2 dilution
#Iron studies show KYM
-Patient now okay with lower dose aspirin
-Will need outpatient work-up for KYM
-Hg relatively stable
# Mildly elevated troponin-likely secondary to respiratory distress-follow
TTE without WMA
# Urinary frequency
-UA without e/o infection
#Mild Thrombocytopenia-resolved
# History of prostate cancer with radiation in the past
# History of SCC lung� with left upper lobectomy in 2000
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
He cannot recall the details, but states he had laryngeal cancer and received 28 courses of radiation therapy per Dr. Sidhu in September of 2012.
# 45 pound weight loss
# Hypertension-on Coreg
# Hypomagnesemia-replace
# Prolonged QTc
# Hyperlipidemia-on simvastatin
# At least patient has moderate protein calorie malnutrition
# History of noncritical coronary disease.
# History of aortic valve replacement in 2006-bioprosthetic aortic valve
# History of lumbar disc surgery
# Nephrolithiasis
# Hypoalbuminemia
# DVT prophylaxis-Lovenox
# DNR status per discussion with patient and daughter at bedside
Discussed with at bedside
Discussed with case management
Anticipated Discharge: Today
Subjective/Interval History
-
Date of Service: September 28, 2023
Objective Data
-
Vital Signs:
Vital Signs
Temp Pulse Resp BP Pulse Ox
98.3 F 89 15 156/75 95
09/28/23 11:44 09/28/23 11:44 09/28/23 11:44 09/28/23 11:44 09/28/23 11:44
I&O
09/27/23 09/28/23 09/29/23
06:59 06:59 06:59
Intake Total 1470 / 1470 1217 / 1217
Output Total 1300 / 1300 1450 / 1450
Balance 170 / 170 -233 / -233
--- NOTE | 2023-09-28 15:54 | CM ---
Reviewed the chart notes and spoke with the patient and his spouse at the bedside. IMM signed and placed on chart. Patient has been accepted at [facility] for tomorrow. CM continues to be available to patient/family and is monitoring medical plan for
needs at discharge.
Plan: Discharge to [facility] tomorrow.
Call report to: [phone]
Fax report to: [phone]
Medical necessity and transport form on chart.
[2023-09-28 17:20] LABS: Glucose - Point of Care 138 mg/dl (70-99)
[2023-09-28] MEDS: LOVENOX 40 MG SC (17:47)
[2023-09-28] MEDS: KCL ELIXIR 20 MEQ TUBE (21:09)
[2023-09-28] MEDS: MELATONIN 5 MG TUBE (21:10)
[2023-09-28] MEDS: TYLENOL 650 MG TUBE (22:48)
[2023-09-29 00:11] LABS: Glucose - Point of Care 145 mg/dl (70-99)
[2023-09-29] MEDS: NOVOLOG FLEXPEN-LOW RESISTANCE SC ×4 (00:13→18:04)
[2023-09-29 03:31] VITALS: BP 144/93
[2023-09-29 05:54] LABS: Glucose - Point of Care 117 mg/dl (70-99)
[2023-09-29] MEDS: SPIRIVA RESPIMAT 2.5 MCG 2 PUFF INH (07:26)
[2023-09-29] MEDS: ADVAIR HFA 115/21 MCG INHALER 1 PUFF INH ×2 (07:26→18:10)
--- NOTE | 2023-09-29 07:38 | W.PN.HOSP.TC ---
Today's Communication/Plan
-
discharge
Assessment / Plan
Assessment / Plan
Physical Exam
General: no acute distress
CVS: S1-S2 normal
Chest:Clear to auscultation b/l though diminished breath sounds, on nasal cannula
Abdomen: Soft, NT , Bowel sounds present
Extremities: No edema
Neuro: Awake Alert but irritable exhibiting memory issues
Mr. 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
with 4 days shortness of breath, productive cough, admitted for extensive left lower lobe pneumonia. He moved here from [place], [place] [address] PE Extensive left lower lobe pneumonia.Severe emphysematous changes.There is no pulmonary embolism
TTE-Left ventricle is small in size. Normal left ventricular systolic function.�Left ventricular ejection fraction is 55%. Normal regional wall motion. Mild concentric left ventricular hypertrophy.Mild mitral regurgitation.Normally functioning
bioAVR - Peak gradient 10mmHg/Mean gradient 6mmHg - no�aortic regurgitation is seen.Mild tricuspid regurgitation. Estimated pulmonary artery pressure of 35-40 mm Hg.No prior echo for comparison.
Patient was seen earlier. was at bedside at that time. Late documentation
#Left lower lobe pneumonia
Pseudomonas Pneumonia
Sepsis 2/2 PNA
Acute on chronic respiratory insufficiency
CT PE study with extensive left lower lobe pneumonia no PE.
Finished a course of Zosyn
Leukocytosis resolved
09/18: increased tachypnea/tachycardia - repeat CXR portable with worsening PNA, likely related to anxiety
Appreciate pulmonary
Continue acapella, Robitussin
#Severe emphysema on albuterol and fluticasone and Spiriva inhalers as outpatient
�Chronic respiratory failure on 2 to 3 L of oxygen at home
Continue [employer]ANG[employer]ENDER inhalers, changed albuterol to levalbuterol given tachycardia
#Recurrent Aspiration
-Likely 2/2 hx laryngeal CA and radiation
-VSE with aspiration on all foods and liquids
-Had a dobhoff , off and on and now PEG placed 09/24/23
-Tube feeds started and titrated up to goal
# Lactic acidosis-Resolved
# TME-on as needed Seroquel. Also suspect cognitive dysfunction vascular dementia
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
Psychiatric evaluation requested appreciated
# Hypokalemia-replaced
# Loose stools.
C. difficile negative. Added probiotics
#Drop in hg 2/2 dilution
#Iron studies show KYM
-Patient now okay with lower dose aspirin
-outpt follow up KYM
-Hg relatively stable
# Mildly elevated troponin-likely secondary to respiratory distress-follow
#non-[place] troponin elevation
Troponin peak 0.071 since trended down
TTE without WMA
# Urinary frequency
-UA without e/o infection
#Mild Thrombocytopenia-resolved
# History of prostate cancer with radiation in the past
# History of SCC lung� with left upper lobectomy in 2000
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
He cannot recall the details, but states he had laryngeal cancer and received 28 courses of radiation therapy per Dr. Sidhu in September of 2012.
# 45 pound weight loss
# Hypertension-on Coreg
# Hypomagnesemia-replace
# Prolonged QTc
# Hyperlipidemia-on simvastatin
# At least patient has moderate protein calorie malnutrition
# History of noncritical coronary disease.
# History of aortic valve replacement in 2006-bioprosthetic aortic valve
# History of lumbar disc surgery
# Nephrolithiasis
# Hypoalbuminemia
# DVT prophylaxis-Lovenox
# DNR status per discussion with patient and daughter at bedside
Medically stable for discharge SNF with outpatient follow up recommendations.
Discussed with patient, his Kiara, and daughter Tami
Total Time Preparing Discharge ___50____ minutes including examination of the patient, summary of the hospital stay, instructions for continuing care to all relevant caregivers; and preparation of discharge records, prescriptions, and referral
forms if necessary.
Anticipated Discharge: Today
Subjective/Interval History
-
Date of Service: September 29, 2023
Seen and examined at bedside in no acute distress resting comfortably in bed. Daughter Tami Present during evaluation. Patient irritable reports no one had told him regarding potential discharge to [facility] today. however refutes this
however, reports she was present when case management discussed discharge with him yesterday.
Objective Data
-
Vital Signs:
Vital Signs
Temp Pulse Resp BP Pulse Ox
97.1 F 95 18 144/93 96
09/29/23 03:31 09/29/23 07:27 09/29/23 07:27 09/29/23 03:31 09/29/23 07:27
I&O
09/28/23 09/29/23 09/30/23
06:59 06:59 06:59
Intake Total 1217 / 1217 1890 / 1890
Output Total 1450 / 1450 2049
Balance -233 / -233 -160 / -160
[2023-09-29 07:44] VITALS: BP 153/86
[2023-09-29] MEDS: VITAMIN B1 100 MG TUBE (08:22)
[2023-09-29] MEDS: FLORASTOR 250 MG PO (08:22)
[2023-09-29] MEDS: LOW STRENGTH ASPIRIN 81 MG TUBE (08:23)
[2023-09-29] MEDS: FERROUS SULFATE ORAL LIQUID 300 MG TUBE (08:23)
[2023-09-29] MEDS: ROBITUSSIN 200 MG TUBE ×3 (08:23→17:28)
[2023-09-29] MEDS: LOPRESSOR 25 MG TUBE (08:23)
[2023-09-29] MEDS: PREVACID 15 MG TUBE (08:23)
[2023-09-29] MEDS: VITAMIN D3 (cholecalciferol) 125 MCG TUBE (08:23)
[2023-09-29] MEDS: LIPITOR 10 MG TUBE (08:23)
[2023-09-29 10:55] VITALS: BP 143/85
[2023-09-29 11:20] LABS: Glucose - Point of Care 123 mg/dl (70-99)
--- NOTE | 2023-09-29 12:15 | W.DCSUMMARY ---
Discharge Summary
Discharge Data
Date of Admission: 09/15/23
Date of Discharge: 09/29/23
-
Pending Results: No
Hospital Course
77M with hx left upper lobe lung cancer 2010 with lobectomy, prostate cancer with radiation and seed therapy, COPD on chronic 2 to 3 L, former smoker 60 years, HTN, HLD, aortic valve replacement 2006 presented to ER with 4 days shortness of breath,
productive cough, admitted for extensive left lower lobe pneumonia.� He moved here from [place], [place] [address] chest noted Extensive left lower lobe pneumonia.Severe emphysematous changes, no pulmonary embolism. TTE noted Left ventricle small
in size. Normal left ventricular systolic function EF 55%. Normal regional wall motion. Mild concentric left ventricular hypertrophy. Mild mitral regurgitation. Normal functioning bioAVR - Peak gradient 10mmHg/Mean gradient 6mmHg - no�aortic
regurgitation was seen. Mild tricuspid regurgitation.�Estimated pulmonary artery pressure of 35-40 mm Hg.No prior echo for comparison. Left lower lobe pneumonia, Pseudomonas Pneumonia, Sepsis 2/2 PNA, Acute on chronic respiratory insufficiency, pt
completed course of Zosyn. Leukocytosis resolved. Recurrent Aspiration, likely 2/2 hx laryngeal CA and radiation, VSE with aspiration on all foods and liquids. Dobhoff was placed and eventually converted to PEG 09/24/23. TME-on as needed
Seroquel, also suspected cognitive dysfunction vascular dementia. CT head appreciated probable old 8 mm lacunar infarct in the head of the caudate and anterior limb of internal capsule and right ( denied hx stroke) otherwise no acute abn's. Pt
had drop in hgb 2/2 dilution. Iron studies showed KYM. Hg relatively stable. Mildly elevated troponin-likely secondary to respiratory distress, non-TX troponin elevation, Troponin peak 0.071 since trended down. Urinary frequency, UA not
suggestive of infection. Medically stable, patient was discharged to SNF rehab with outpatient follow up recommendations.
Discharge Plan
-
Patient Disposition: Skilled Nursing/SNF
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
Condition: Fair
Diet: Tube feeding
Additional Diets: Jevity 1.5 at 50 ml per hour. 25 mL tube feed flushes
Activity: With assistance and As tolerated
Driving Restrictions: No driving
Blood Work: CBC, BMP, magnesium in 3 days
Others Tests: Repeat chest x-ray 4 weeks
Other Services: PT, OT and ST
Activity Restrictions/Additional Instructions:
If weight does not improve with tube feeds needs further workup. Aspiration precautions. Head of bed elevation to 30 degrees at all times. Workup of anemia as outpatient. Incentive spirometry. Pulmonary function testing as outpatient
Referrals:
Keshawn Dominguez MD [Active] - in four to six weeks (CXR prior to visit)
Jaydon Scherer MD [Active] - (call GI if any issues with feeding tube )
UNKNOWN - PT DOES,NOT KNOW [Family Provider] -
Prescriptions:
New
acetaminophen 325 mg Tablet
650 mg feeding tube Q4HPRN PRN (Reason: mild pain, fever) Qty: 0 0RF
sodium chloride 3 % Solution For Nebulization
4 ml inhalation R Q6HPRN PRN (Reason: TENACIOUS SECRETIONS) Qty: 0 0RF
thiamine HCl (vitamin B1) 100 mg Tablet
100 mg feeding tube DAILY Qty: 20 0RF
guaifenesin [Siltussin SA] 100 mg/5 mL Liquid
200 mg feeding tube QID Qty: 0 0RF
potassium chloride 20 mEq/15 mL Liquid
20 meq feeding tube HS Qty: 0 0RF
ferrous sulfate 300 mg (60 mg iron)/5 mL Liquid
300 mg feeding tube DAILY Qty: 0 0RF
aspirin [Children's Aspirin] 81 mg Tablet,Chewable
81 mg feeding tube DAILY Qty: 0 0RF
levalbuterol HCl 1.25 mg/3 mL Solution For Nebulization
1.25 mg inhalation R Q6HPRN PRN (Reason: shortness of breath) Qty: 0 0RF
lansoprazole 15 mg Tablet,Disintegrat, Delay Rel
15 mg feeding tube DAILY Qty: 0 0RF
Saccharomyces boulardii 250 mg Capsule
250 mg PO BID Qty: 20 0RF
metoprolol tartrate 25 mg Tablet
25 mg feeding tube BID Qty: 0 0RF
melatonin 5 mg Tablet
5 mg feeding tube HS Qty: 0 0RF
cholecalciferol (vitamin D3) 125 mcg (5,000 unit) Tablet
125 mcg feeding tube DAILY Qty: 0 0RF
cyanocobalamin (vitamin B-12) 1,000 mcg/15 mL liquid
1,000 mcg feeding tube DAILY Qty: 240 0RF
quetiapine 25 mg Tablet
12.5 mg feeding tube [id number] PRN (Reason: agitation/delirium) Qty: 0 0RF
Continued
albuterol sulfate 90 mcg/actuation Hfa Aerosol Inhaler
2 puff INHALATION R QIDPRN PRN (Reason: sob)
fluticasone propion-salmeterol 115-21 mcg/actuation Hfa Aerosol Inhaler
1 puff INHALATION R BID
Spiriva Respimat 1.25 mcg/actuation Mist
1 puff INHALATION R DAILY
Changed
simvastatin 20 MG tablet
20 mg feeding tube HS Qty: 0 0RF
Discontinued
aspirin 325 mg Tablet
325 mg PO DAILY
metoprolol succinate 50 mg Tablet Extended Release 24 Hr
50 mg PO DAILY
Discharge Orders:
Discharge Patient (As Directed); Ordered 09/29/23
Ordered By: Cristina Joseph
Discharge Date and Time
Discharge Date/Time: 09/29/23 18:56
[2023-09-29 14:45] VITALS: BP 118/78
--- NOTE | 2023-09-29 15:27 | CM ---
Patient has been cleared to transfer to [facility] today. Ambulance has been set up for 6:30pm.
[facility]
Call report to: [phone]
Fax report to: [phone]
[2023-09-29] MEDS: LOVENOX 40 MG SC (17:27)
[2023-09-29 17:39] LABS: Glucose - Point of Care 156 mg/dl (70-99)
--- NOTE | 2023-09-29 19:00 | PTCARENOTE ---
Patient discharged to [facility] ([place]). This RN removed patient's IV, telemetry pack removed by tech, belongings gathered in room and taken home by family. Report given to Duyen at facility, patient transported by [facility]. PEG tube disconnected from
tube feed, flushed, and capped.
== END 2023-09-29 18:56 | DRG 871 ==
LOC: 2 NORTH 12:55
PROVIDERS: Clinical Nurse Specialist Family Health; Nurse Practitioner; Nurse Practitioner Family; Student in an Organized Health Care Education/Training Program; Surgery; ADMITTING PHYSICIAN Hospitalist; ATTENDING PHYSICIAN Internal Medicine; CONSULT PHYSICIAN Internal Medicine Gastroenterology; CONSULT PHYSICIAN Psychiatry & Neurology Psychiatry; EMERGENCY PHYSICIAN Student in an Organized Health Care Education/Training Program; OTHER PHYSICIAN Internal Medicine Pulmonary Disease
PROC: 0DH63UZ Insertion of Feeding Device into Stomach, Percutaneous Approach (ICD-10-PCS; 2023-09-24)
PROC: 3E0G76Z Introduction of Nutritional Substance into Upper GI, Via Natural or Artificial Opening (ICD-10-PCS; 2023-09-24)
DX: A41.52 Sepsis due to Pseudomonas (principal); J15.1 Pneumonia due to Pseudomonas; J96.21 Acute and chronic respiratory failure with hypoxia; E44.0 Moderate protein-calorie malnutrition; Z68.1 Body mass index [BMI] 19.9 or less, adult; E87.20 Acidosis, unspecified; I47.10 Supraventricular tachycardia, unspecified; I5A Non-ischemic myocardial injury (non-traumatic); R65.20 Severe sepsis without septic shock; E83.42 Hypomagnesemia; D69.6 Thrombocytopenia, unspecified; E87.6 Hypokalemia; I25.10 Atherosclerotic heart disease of native coronary artery without angina pectoris; I10 Essential (primary) hypertension; E55.9 Vitamin D deficiency, unspecified; Z66 Do not resuscitate; Z86.73 Personal history of transient ischemic attack (TIA), and cerebral infarction without residual deficits; Z79.82 Long term (current) use of aspirin; Z85.46 Personal history of malignant neoplasm of prostate; Z95.3 Presence of xenogenic heart valve; Z92.3 Personal history of irradiation; Z99.81 Dependence on supplemental oxygen; Z85.118 Personal history of other malignant neoplasm of bronchus and lung
CPT/HCPCS: 70450; 71045; 71046; 71275; 74018; 74230; 80048; 80053; 81003; 81015; 82306; 82607; 82728; 82805; 82962; 83036; 83540; 83550; 83605; 83735; 83880; 84100; 84484; 85025; 85027; 87040; 87070; 87077; 87186; 87205; 87324; 87449; 87502; 87811; 92526; 92610; 92611; 93005; 93306; 94640; 96361; 96365; 96367; 96375; 97110; 97116; 97162; 97166; 97530; 97535; 99285; Q9967

== ENCOUNTER → 2023-10-03 12:13 | Outpatient (REF) | payer OTHER, MEDICARE, SELFPAY ==
[2023-10-03 13:26] LABS: % Basophils 0.5 % (0-2); % Eosinophils 1.2 % (0-6); % Immature Granulocytes 0.5 % (0-0.5); % Lymphocytes 6.2 % (20.5-51.1); % Monocytes 11.5 % (1.7-9.3); % Neutrophils 80.1 % (42.2-75.2); ALT (SGPT) 28 U/L (0-50); AST (SGOT) 34 U/L (17-59); Absolute Eosinophils 0.1 10^3/uL (0-0.7); Absolute Lymphocytes 0.4 10^3/uL (1.2-3.4); Absolute Monocytes 0.7 10^3/uL (0.1-0.6); Absolute Neutrophils 5.2 10^3/uL (1.4-6.5); Albumin 2.8 g/dl (3.5-5.0); Alkaline Phosphatase 235 U/L (38-126); Blood Urea Nitrogen 26 mg/dl (9-20); Calcium 8.4 mg/dl (8.4-10.2); Carbon Dioxide 36 mmol/L (22-30); Chloride 96 mmol/L (98-107); Glucose 122 mg/dl (70-99); Hematocrit 27.6 % (39.0-52.0); Hemoglobin 8.5 g/dL (13.0-18.0); Magnesium 2.1 mg/dl (1.6-2.3); Mean Corp Hgb Conc. 30.8 g/dL (33.0-37.0); Mean Corpuscular Hgb 28.2 pg (27.0-31.0); Mean Corpuscular Volume 91.7 fL (80.0-94.0); Mean Platelet Volume 12.1 fL (7.4-10.4); Nucleated Red Blood Cells % 0 % (-); Platelet Count 358 10^3/uL (130-400); Potassium 4.8 mmol/L (3.5-5.1); Red Blood Cell Count 3.01 10^6/uL (4.70-6.10); Red Cell Dist. Width 14.4 % (11.5-14.5); Sodium 133 mmol/L (135-145); Total Bilirubin 0.7 mg/dl (0.2-1.3); Total Protein 6.5 g/dl (6.3-8.2); White Blood Cell Count 6.5 10^3/uL (4.8-10.8); eGFR > 60.00
[2023-10-03 13:34] LABS: Prealbumin (Transthyretin) 9.6 mg/dl (17.6-36.0)
[2023-10-03 14:01] LABS: TSH 1.82 uIU/ml (0.47-4.68)
== END ==
LOC: OLABP 12:13
PROVIDERS: ATTENDING PHYSICIAN Family Medicine
DX: J15.1 Pneumonia due to Pseudomonas (principal); Z85.118 Personal history of other malignant neoplasm of bronchus and lung; N20.0 Calculus of kidney; I25.10 Atherosclerotic heart disease of native coronary artery without angina pectoris; D69.6 Thrombocytopenia, unspecified; G93.41 Metabolic encephalopathy; R64 Cachexia; E44.0 Moderate protein-calorie malnutrition; R13.10 Dysphagia, unspecified; J43.9 Emphysema, unspecified; J44.9 Chronic obstructive pulmonary disease, unspecified
CPT/HCPCS: 36415; 80053; 83735; 84134; 84443; 85025